=== PATIENT | male | born 1955 | race Caucasian/White ===

== ENCOUNTER 2016-10-08 15:36 | Inpatient (IN) | payer OTHER ==
[~2016-10-08] VITALS: Ht 175.3 cm; Wt 80.9 kg
[~2016-10-08 15:36] MED LIST: CALC250 PO; CHLO25 PO; FOLI1 PO; METF-324 PO; NORC10TA2 PO; PANT40P IV PUSH; THIA100T PO
[2016-10-08 15:39] VITALS: BP 91/53; PULSE 113; RESP 14; TEMP 97.7; O2SAT 96
--- NOTE | 2016-10-08 18:26 | PD ---
HPI Chief Complaint: GI Complaint Time Seen by Provider: 18:23 Travel History International Travel<30 days: No Contact w/Intl Traveler<30days: No Traveled to known affect area: No History of Present Illness HPI Patient is a 61-year-old male presenting to the emergency department for evaluation of decreased appetite and vomiting. Patient states his symptoms have been ongoing for the last 2 weeks. He states that he is stressed out and depressed. He denies any suicidal or homicidal ideations. He reports feeling stressed because he takes care of his 90-year-old mother. Patient states he vomits generally 2-3 times a day. The last time he vomited was at 2 PM today. Patient is able to drink 6 vodka drinks daily, his last drink was last night. He also smokes one to 2 packs of cigarettes daily. He denies any fever, chills , chest pain, shortness of breath, diarrhea, abdominal pain. PFSH Past Medical History Cancer: Yes (PROSTATE) High Cholesterol: Yes Chemotherapy: No Diabetes: Yes Patient Takes Glucophage: Yes Endocrine: Yes Hypertension: Yes Immune Disorder: No Musculoskeletal: No Neurologic: No Psychiatric: No Reproductive: No Radiation Therapy: No Past Surgical History Eye Surgery: Yes (CATARACTS) Prostatectomy: Yes Tonsillectomy: Yes Social History Alcohol Use: Yes Tobacco Use: Yes Substance Use: No Allergies-Medications (Allergen,Severity, Reaction): Coded Allergies: No Known Allergies (Verified , 10/08/16) Reported Meds & Prescriptions Reported Meds & Active Scripts Active Protonix (Pantoprazole Sodium) 40 Mg Vial 40 Mg IV PUSH Q24H 30 Days Oscal-D 250 MG /125 UNITS Tab (Calcium/Vitamin D) 250 Mg Tab 250 Mg PO TID 30 Days Librium 25 mg Cap (Chlordiazepoxide) 25 Mg Cap 25 Mg PO Q8HR 10 Days After 5 days, take one tablet twice a day. Folate 1 Mg Tab (Folic Acid) 1 Mg Tab 1 Mg PO DAILY 30 Days Vitamin B1 (Thiamine HCl) 100 Mg Tab 100 Mg PO DAILY 30 Days Spraggs 10-325 mg (Hydrocodone-Acetaminophen) 1 Tab Tab 1 Tab PO Q4HR Reported Metformin ER 24 HR (Metformin HCl) 1,000 Mg Tab 1,000 Mg PO BIDPC Review of Systems Except as stated in HPI: all other systems reviewed are Neg General / Constitutional: No: Fever, Chills Cardiovascular: No: Chest Pain or Discomfort Respiratory: No: Shortness of Breath Gastrointestinal: Positive: Nausea, Vomiting, No: Abdominal Pain Musculoskeletal: No: Myalgias Neurologic: No: Weakness, Dizziness, Syncope Physical Exam Narrative GENERAL: Well-developed, well-nourished, drowsy male. Resting comfortably in no acute distress. SKIN: Warm and dry. HEAD: Atraumatic. Normocephalic. EYES: Pupils equal and round. No scleral icterus. No injection or drainage. ENT: No nasal bleeding or discharge. Mucous membranes pink and moist. NECK: Trachea midline. No JVD. CARDIOVASCULAR: Regular rate and rhythm. No murmur appreciated. RESPIRATORY: No accessory muscle use. Clear to auscultation. Breath sounds equal bilaterally. GASTROINTESTINAL: Abdomen soft, non-tender, nondistended. Hepatic and splenic margins not palpable. Positive bowel sounds, no rebound, no guarding. MUSCULOSKELETAL: No obvious deformities. No clubbing. No cyanosis. No edema. NEUROLOGICAL: Awake and alert. No obvious cranial nerve deficits. Motor grossly within normal limits. Normal speech. PSYCHIATRIC: Appropriate mood and affect; insight and judgment normal. Data Data Last Documented VS Vital Signs Date Time Temp Pulse Resp B/P Pulse Ox O2 Delivery O2 Flow Rate FiO2 10/08/16 15:39 97.7 113 14 91/53 96 Room Air Orders Complete Blood Count With Diff (10/08/16 18:20) Comprehensive Metabolic Panel (10/08/16 18:20) Lipase (10/08/16 18:20) Ondansetron Odt (Zofran Odt) (10/08/16 18:30) Alcohol (Ethanol) (10/08/16 18:20) Iv Access Insert/Monitor (10/08/16 19:26) Magnesium (Mg) (10/08/16 19:26) Osmolality,Serum (10/08/16 19:31) Urinalysis - C+S If Indicated (10/08/16 19:31) Sodium Chlor 0.9% 1000 Ml Inj (Ns 1000 M (10/08/16 20:00) Ondansetron Inj (Zofran Inj) (10/08/16 20:00) Labs Laboratory Tests Test 10/08/16 18:40 White Blood Count 12.5 TH/MM3 Red Blood Count 3.89 MIL/MM3 Hemoglobin 13.9 GM/DL Hematocrit 39.2 % Mean Corpuscular Volume 100.8 FL Mean Corpuscular Hemoglobin 35.7 PG Mean Corpuscular Hemoglobin 35.4 % Concent Red Cell Distribution Width 13.2 % Platelet Count 152 TH/MM3 Mean Platelet Volume 8.1 FL Neutrophils (%) (Auto) 91.3 % Lymphocytes (%) (Auto) 5.7 % Monocytes (%) (Auto) 3.0 % Eosinophils (%) (Auto) 0.0 % Basophils (%) (Auto) 0.0 % Neutrophils # (Auto) 11.4 TH/MM3 Lymphocytes # (Auto) 0.7 TH/MM3 Monocytes # (Auto) 0.4 TH/MM3 Eosinophils # (Auto) 0.0 TH/MM3 Basophils # (Auto) 0.0 TH/MM3 CBC Comment DIFF FINAL Differential Comment Sodium Level 124 MEQ/L Potassium Level 5.0 MEQ/L Chloride Level 83 MEQ/L Carbon Dioxide Level 17.0 MEQ/L Anion Gap 24 MEQ/L Blood Urea Nitrogen 31 MG/DL Creatinine 2.19 MG/DL Estimat Glomerular Filtration 31 ML/MIN Rate Random Glucose 77 MG/DL Calcium Level 8.3 MG/DL Magnesium Level 2.0 MG/DL Total Bilirubin 0.6 MG/DL Aspartate Amino Transf 57 U/L (AST/SGOT) Alanine Aminotransferase 83 U/L (ALT/SGPT) Alkaline Phosphatase 52 U/L Total Protein 7.0 GM/DL Albumin 4.0 GM/DL Lipase 141 U/L Ethyl Alcohol Level 170 MG/DL MDM Medical Decision Making Medical Screen Exam Complete: Yes Emergency Medical Condition: Yes Interpretation(s) Vital Signs Date Time Temp Pulse Resp B/P Pulse Ox O2 Delivery O2 Flow Rate FiO2 10/08/16 15:39 97.7 113 14 91/53 96 Room Air Differential Diagnosis Alcohol dependence versus acute intoxication versus electrolyte abnormality versus cardiac arrhythmia versus gastritis versus gastroenteritis versus other Narrative Course Patient is a 61-year-old male presenting to the emergency Department with 2 weeks of nausea and vomiting. Patient is mildly tachycardic on arrival. He does admit to drinking several vodka drinks daily, his last drink was last night. Labs ordered and pending. Patient appears drowsy and smells of alcohol , will check alcohol level as well. Patient states his primary doctor is Dr. Horvath. Alcohol level elevated at 170, chemistry revealed a sodium of 124, potassium 5.0 , mild transaminitis. Elevated BUN and creatinine, this is improved from the prior 2014. CBC with WBCs of 12.5 with left shift. Patient started actively vomit, Zofran was changed to IV after access was obtained. Normal saline bolus ordered. Serum osmolality, magnesium, urinalysis ordered and pending Patient will be transferred to [facility], for further evaluation and management. Care of patient transferred to provider in that medical pod. Leti Banks Oct 08, 2016 18:26
[2016-10-08] MEDS ORDERED: ONDANSETRON ODT 4 MG TAB PO/SL ONE (18:30)
[2016-10-08 19:07] LABS: AUTOMATED NEUTROPHIL # 11.4 TH/MM3 (1.8-7.7); HEMATOCRIT 39.2 % (39.0-51.0); HEMO FLAGS DIFF FINAL; LYMPH % 5.7 % (9.0-44.0); LYMPHOCYTE # 0.7 TH/MM3 (1.0-4.8); MEAN CELL VOLUME 100.8 FL (80.0-100.0); MEAN CORPUSCULAR HEMOGLOBIN 35.7 PG (27.0-34.0); MEAN CORPUSCULAR HGB CONC 35.4 % (32.0-36.0); NEUT % 91.3 % (16.0-70.0); PLATELET COUNT 152 TH/MM3 (150-450); RED BLOOD COUNT 3.89 MIL/MM3 (4.50-5.90); RED CELL DISTRIBUTION WIDTH 13.2 % (11.6-17.2); WHITE BLOOD COUNT 12.5 TH/MM3 (4.0-11.0)
[2016-10-08 19:17] LABS: ANION GAP 24 MEQ/L (5-15)
[2016-10-08 19:20] LABS: ALKALINE PHOSPHATASE 52 U/L (45-117); ALT (GPT) 83 U/L (12-78); AST (GOT) 57 U/L (15-37); BLOOD UREA NITROGEN 31 MG/DL (7-18); CHLORIDE 83 MEQ/L (98-107); GLOMERULAR FILTRATION RATE 31 ML/MIN (>89); TOTAL BILIRUBIN ADULT 0.6 MG/DL (0.2-1.0)
[2016-10-08 19:21] LABS: SODIUM (NA) 124 MEQ/L (136-145)
[2016-10-08] MEDS ORDERED: SODIUM CHLOR 0.9% 1000 ML INJ 1,000 ML IV ONE (20:00)
[2016-10-08] MEDS ORDERED: ONDANSETRON HCL 4 MG/2 ML VIAL IV PUSH ONE (20:00)
[2016-10-08 20:04] LABS: BLOOD, URINE NEG (NEG); COMMENT (UR) CULT NOT INDICATED; CULTURE IF INDICATED CULT NOT INDICATED; GLUCOSE,URINE NEG (NEG); HYALINE CAST, URINE 79 /lpf (RARE); KETONE, URINE 10 mg/dL (NEG); NITRITE,URINE NEG (NEG); SQUAMOUS EPITHELIAL CELL URINE 1 /hpf (0-5); URINE COLOR YELLOW (YELLW/STRAW)
[2016-10-08 20:10] VITALS: BP 116/62; PULSE 113; PULSE 99; RESP 16; TEMP 98; O2SAT 96
[2016-10-08] MEDS ORDERED: LISI-515 PO (20:12)
[2016-10-08] MEDS ORDERED: METF1000 PO (20:12)
[2016-10-08] MEDS ORDERED: LORazepam 2 MG/ML VIAL IV PUSH ONE (20:15)
[2016-10-08] MEDS ORDERED: PANTOPRAZOLE SODIUM 40 MG VIAL IVP ONE (20:15)
[2016-10-08] MEDS ORDERED: THIAMINE INJ 100 MG in SODIUM CHLORIDE 0.9% INJ 100 ML IV ONE (20:15)
[2016-10-08] MEDS ORDERED: SODIUM CHLORIDE 0.9% FLUSH 5 ML FLUSH IVF PRN (20:15)
--- NOTE | 2016-10-08 20:16 | PD ---
Physical Exam Date Seen by Provider: Oct 08, 2016 Time Seen by Provider: 20:15 Narrative 61-year-old male coming in with history of 2 weeks of vomiting and abdominal pain. Patient was seen in triage by Leti HELTON. Labs ordered including CBC, CMP, EtOH level and urinalysis. CBC is within normal limits except for mild leukocytosis of 12.5. CMP came back showing sodium 124. Chloride of 83. BUN of 31 with a creatinine of 2.19. Carbon dioxide is 17 with an anion gap of 24. Patient has mild elevated AST and ALTs. Alkaline phosphatase is 52. Lipase is 141. Serum alcohol is 170 Urinalysis is unremarkable. Data Data Last Documented VS Vital Signs Date Time Temp Pulse Resp B/P Pulse Ox O2 Delivery O2 Flow Rate FiO2 10/08/16 20:10 98.0 99 16 116/62 96 Room Air Orders Complete Blood Count With Diff (10/08/16 18:20) Comprehensive Metabolic Panel (10/08/16 18:20) Lipase (10/08/16 18:20) Ondansetron Odt (Zofran Odt) (10/08/16 18:30) Alcohol (Ethanol) (10/08/16 18:20) Iv Access Insert/Monitor (10/08/16 19:26) Magnesium (Mg) (10/08/16 19:26) Osmolality,Serum (10/08/16 19:31) Urinalysis - C+S If Indicated (10/08/16 19:31) Sodium Chlor 0.9% 1000 Ml Inj (Ns 1000 M (10/08/16 20:00) Ondansetron Inj (Zofran Inj) (10/08/16 20:00) Pantoprazole Inj (Protonix Inj) (10/08/16 20:15) Sodium Chloride 0.9% Flush (Ns Flush) (10/08/16 20:15) Thiamine Inj (Thiamine Inj) (10/08/16 20:15) Lorazepam Inj (Ativan Inj) (10/08/16 20:15) Labs Laboratory Tests Test 10/08/16 10/08/16 10/08/16 18:40 19:40 19:45 White Blood Count 12.5 TH/MM3 Red Blood Count 3.89 MIL/MM3 Hemoglobin 13.9 GM/DL Hematocrit 39.2 % Mean Corpuscular Volume 100.8 FL Mean Corpuscular Hemoglobin 35.7 PG Mean Corpuscular Hemoglobin 35.4 % Concent Red Cell Distribution Width 13.2 % Platelet Count 152 TH/MM3 Mean Platelet Volume 8.1 FL Neutrophils (%) (Auto) 91.3 % Lymphocytes (%) (Auto) 5.7 % Monocytes (%) (Auto) 3.0 % Eosinophils (%) (Auto) 0.0 % Basophils (%) (Auto) 0.0 % Neutrophils # (Auto) 11.4 TH/MM3 Lymphocytes # (Auto) 0.7 TH/MM3 Monocytes # (Auto) 0.4 TH/MM3 Eosinophils # (Auto) 0.0 TH/MM3 Basophils # (Auto) 0.0 TH/MM3 CBC Comment DIFF FINAL Differential Comment Sodium Level 124 MEQ/L Potassium Level 5.0 MEQ/L Chloride Level 83 MEQ/L Carbon Dioxide Level 17.0 MEQ/L Anion Gap 24 MEQ/L Blood Urea Nitrogen 31 MG/DL Creatinine 2.19 MG/DL Estimat Glomerular Filtration 31 ML/MIN Rate Random Glucose 77 MG/DL Calcium Level 8.3 MG/DL Magnesium Level 2.0 MG/DL Total Bilirubin 0.6 MG/DL Aspartate Amino Transf 57 U/L (AST/SGOT) Alanine Aminotransferase 83 U/L (ALT/SGPT) Alkaline Phosphatase 52 U/L Total Protein 7.0 GM/DL Albumin 4.0 GM/DL Lipase 141 U/L Ethyl Alcohol Level 170 MG/DL Serum Osmolality 318 MOSM/KG Urine Color YELLOW Urine Turbidity HAZY Urine pH 5.0 Urine Specific [place] 1.014 Urine Protein TRACE mg/dL Urine Glucose (UA) NEG mg/dL Urine Ketones 10 mg/dL Urine Occult Blood NEG Urine Nitrite NEG Urine Bilirubin NEG Urine Urobilinogen LESS THAN 2.0 MG/DL Urine Leukocyte Esterase NEG Urine RBC LESS THAN 1 /hpf Urine WBC 2 /hpf Urine Squamous Epithelial 1 /hpf Cells Urine Hyaline Casts 79 /lpf Microscopic Urinalysis Comment CULT NOT INDICATED MDM Medical Record Reviewed: Yes Supervised Visit with ROXANNE: Yes Differential Diagnosis Nausea and vomiting. Alcoholic gastritis. EtOH withdrawal. Electrolyte imbalance. Dehydration. Narrative Course Patient is medically stable at time of exam. Labs are reviewed showing hyponatremia, and will insufficiency. IV access is obtained and the patient is given 1000 mL normal saline bolus, 40 mg pantoprazole IV, and 100 mg thiamine IV. Based on the patient's labs that feel admission for observation is appropriate. 2019 hrs. call was placed on hospice for admission. 2044 hrs. patient was discussed with Dr. Dobbins, who agreed to admit the patient with hyponatremia. Diagnosis Primary Impression: Acute hyponatremia Additional Impressions: Nausea and vomiting Qualified Code: R11.2 - Non-intractable vomiting with nausea, unspecified vomiting type ETOH abuse Admitting Information Admitting Physician Requests: Admit Condition: Stable Rogers Dick Oct 08, 2016 20:16
[2016-10-08] MEDS: SODIUM CHLORIDE 0.9% FLUSH 5 ML FLUSH FLUSH SCH (20:55)
[2016-10-08] MEDS ORDERED: LORazepam 2 MG/ML VIAL IV PUSH PRN (21:00)
[2016-10-08] MEDS ORDERED: SODIUM CHLORIDE 0.9% FLUSH 5 ML FLUSH FLUSH PRN (21:00)
[2016-10-08] MEDS ORDERED: NALOXONE HCL 0.4 MG/ML AMP IV PRN (21:00)
[2016-10-08 21:10] LABS: MEAN CORPUSCULAR HGB CONC 36.3 % (32.0-36.0)
[2016-10-08 23:16] VITALS: BP 99/55; PULSE 95; RESP 16; TEMP 98; O2SAT 96
[2016-10-09] VITALS (7 sets, daily range): BP systolic 108–142; BP diastolic 53–78; PULSE 68–88; RESP 17–18; TEMP 96.6–98.8; O2SAT 93–98
[2016-10-09 01:41] LABS: HEMATOCRIT 32.3 % (39.0-51.0)
[2016-10-09 01:42] LABS: REVIEW FLAG FINAL
[2016-10-09 01:59] LABS: BICARBONATE 20.6 MEQ/L (21.0-32.0); POTASSIUM 4.8 MEQ/L (3.5-5.1)
--- NOTE | 2016-10-09 02:53 | HHI.HP ---
[facility] Dada Horvath, PhD, MD Admission Diagnosis Hyponatremia/Vomitting/ETOH abuse Diagnoses: Chief Complaint: nausea and vomiting Travel History International Travel<30 Days: No Contact w/Intl Traveler <30 Da: No Traveled to Known Affected Are: No History of Present Illness History taken from patient and ED physician. 61 y/o male with a history of HTN, DM, hyperlipidemia, and prostate cancer presented with complaints of nausea and vomiting for the last 2 weeks. He states he vomits about 3 times a day, and is unable to keep solids down. He states today he had blood in his vomit x1. He does have a cough with yellowish/ greenish sputum but denies hemoptysis. He denies any fever, chills or black stools. He states recently he has been really stressed with his home life. 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 Apart from the above, he denies any chest pain/palpitations/shortness of breath/ focal weakness. Denies any passing out episodes or dizziness. Review of Systems Constitutional: COMPLAINS OF: Diaphoretic episodes, DENIES: Fever, Chills Respiratory: COMPLAINS OF: Cough, Sputum production, DENIES: Shortness of breath Cardiovascular: DENIES: Chest pain, Dyspnea on Exertion, Lower Extremity Edema Gastrointestinal: COMPLAINS OF: Nausea, Vomiting, DENIES: Black stools, Constipation, Diarrhea Genitourinary: DENIES: Hematuria, Dysuria Musculoskeletal: DENIES: Back pain, Neck pain Integumentary: DENIES: Rash Hematologic/lymphatic: DENIES: Lymphadenopathy Immunologic/allergic: DENIES: Urticaria Past Family Social History Past Medical History HTN DM Hyperlipidemia Prostate cancer Past Surgical History Proctectomy 2008 Tonsillectomy Cataracts R arm ORIF Reported Medications Reported Meds & Active Scripts Active Reported Lisinopril 20 Mg Tab 20 Mg PO DAILY Metformin (Metformin HCl) 1,000 Mg Tab 1,000 Mg PO BIDPC With meals Allergies: Coded Allergies: No Known Allergies (Verified , 10/08/16) Active Ordered Medications Current Medications Medications (Trade) Dose Ordered Sig/Kelsey Route Start Time Stop Time Status Last Admin (NS Flush) 2 ml UNSCH PRN FLUSH 10/08/16 21:00 (NS Flush) 2 ml BID FLUSH 10/08/16 21:00 10/08/16 20:55 (Narcan Inj) 0.4 mg UNSCH PRN IV 10/08/16 21:00 (Vitamin B1) 100 mg DAILY PO 10/09/16 09:00 (Ativan Inj) 1 mg Q2H PRN IV PUSH 10/08/16 21:00 (Librium) 25 mg TID PO 10/09/16 09:00 Family History Mom: gastric ulcers Social History Tobacco use: 1-2 PPD Alcohol use: 4-6 drinks a day Illicit drug use: Denies Physical Exam Vital Signs Vital Signs Date Time Temp Pulse Resp B/P Pulse Ox O2 Delivery O2 Flow Rate FiO2 10/08/16 23:16 98.0 95 16 99/55 96 Room Air 10/08/16 20:10 98.0 99 16 116/62 96 Room Air 10/08/16 15:39 97.7 113 14 91/53 96 Room Air Physical Exam GENERAL: This is a well-nourished, well-developed patient, in no apparent distress. SKIN: Diaphoretic HEAD: Atraumatic. Normocephalic. EYES: Pupils equal round and reactive. No injection or drainage. ENT: Nose without bleeding, purulent drainage or septal hematoma. Airway patent. NECK: Trachea midline. No JVD CARDIOVASCULAR: Regular rate and rhythm without murmurs, gallops, or rubs. RESPIRATORY: Clear to auscultation. Breath sounds equal bilaterally. No wheezes , rales, or rhonchi. GASTROINTESTINAL: Abdomen soft, tender, nondistended. No guarding. MUSCULOSKELETAL: Extremities without clubbing, cyanosis, or edema. No calf tenderness. NEUROLOGICAL: Awake and alert. Motor and sensory grossly within normal limits. Normal speech. Laboratory Laboratory Tests Test 10/08/16 10/08/16 10/08/16 10/09/16 18:40 19:40 19:45 01:26 White Blood Count 12.5 Red Blood Count 3.89 Hemoglobin 13.9 11.8 Hematocrit 39.2 32.3 Mean Corpuscular Volume 100.8 Mean Corpuscular Hemoglobin 35.7 Mean Corpuscular Hemoglobin 35.4 Concent Red Cell Distribution Width 13.2 Platelet Count 152 Mean Platelet Volume 8.1 Neutrophils (%) (Auto) 91.3 Lymphocytes (%) (Auto) 5.7 Monocytes (%) (Auto) 3.0 Eosinophils (%) (Auto) 0.0 Basophils (%) (Auto) 0.0 Neutrophils # (Auto) 11.4 Lymphocytes # (Auto) 0.7 Monocytes # (Auto) 0.4 Eosinophils # (Auto) 0.0 Basophils # (Auto) 0.0 CBC Comment DIFF FINAL Differential Comment Sodium Level 124 128 Potassium Level 5.0 4.8 Chloride Level 83 92 Carbon Dioxide Level 17.0 20.6 Anion Gap 24 15 Blood Urea Nitrogen 31 28 Creatinine 2.19 1.50 Estimat Glomerular Filtration 31 48 Rate Random Glucose 77 131 Calcium Level 8.3 7.7 Magnesium Level 2.0 Total Bilirubin 0.6 Aspartate Amino Transf 57 (AST/SGOT) Alanine Aminotransferase 83 (ALT/SGPT) Alkaline Phosphatase 52 Total Protein 7.0 Albumin 4.0 Lipase 141 Ethyl Alcohol Level 170 Serum Osmolality 318 Urine Color YELLOW Urine Turbidity HAZY Urine pH 5.0 Urine Specific [place] 1.014 Urine Protein TRACE Urine Glucose (UA) NEG Urine Ketones 10 Urine Occult Blood NEG Urine Nitrite NEG Urine Bilirubin NEG Urine Urobilinogen LESS THAN 2.0 Urine Leukocyte Esterase NEG Urine RBC LESS THAN 1 Urine WBC 2 Urine Squamous Epithelial 1 Cells Urine Hyaline Casts 79 Microscopic Urinalysis Comment CULT NOT INDICATED Result Diagram: 10/09/1612510/09/16125 Assessment and Plan Problem List: (1) Acute hyponatremia ICD Code: E87.1 Status: Acute (2) Nausea and vomiting ICD Code: R11.2 Status: Acute (3) ARNOLD (acute kidney injury) ICD Code: N17.9 Status: Acute (4) GI bleed ICD Code: K92.2 Status: Acute (5) Leukocytosis ICD Code: D72.829 Status: Acute (6) Diabetes mellitus ICD Code: E11.9 Status: Acute (7) ETOH abuse ICD Code: F10.10 Status: Chronic Assessment and Plan 61 y/o male with a history of HTN, DM, hyperlipidemia, and prostate cancer presented with: Acute hyponatremiasecondary to GI loss from nausea/vomiting. Asymptomatic in terms of neurological status. Labs: Sodium 124, repeat sodium 128 after 1 Liter NS Bolus -Trend BMP -Supportive IVF NS@84ml/hr Nausea/vomitingpossible gastritis. No acute findings on physical exam. Abdomen is quite benign. Lipase levels normal -Clear liquid diet advance as tolerated -Antiemetics as needed -Abdominal KUB pendingcheck for free air/perforated peptic ulcers ARNOLD, likely due to dehydration Labs: Creatinine 2.19, repeat 1.5 -Continue supportive IVF -Trend BMP Leukocytosis Labs: WBC 12.5, neutrophils 91% -Chest x-ray obtain now given that patient has reports of sputum production and cough. -UA negative GI bleed- initially this was suspected because patient was complaining of his vomitus becoming dark in color. Repeat hemoglobin noted to be dropping as well. Labs: Hemoglobin 11.8 decreased from 13.9 -Protonix IV continuous -Serial H&H -Consult GI Diabetes, chronic -Accu-Cheks, will order sliding scale if needed -Keep nothing by mouth now due to suspected GI bleed. Switch IV fluids to D5 normal saline. EtOH abuse -Coverage to quit -Ativan as needed, thiamine PO, Librium scheduled -Withdrawal precautions DVT prophylaxis: SCDs Written by Olga HELTON, acting as scribe for Dr. Dobbins on 10/09/16 at 0314. The documentation accurately reflects the work performed [id number] and decisions made by me and the physician Dr Dobbins on 10/09/16. The documentation accurately reflects the work performed [id number] by me on at 0314 Discussed Condition With Patient, patient's nurse, ED physician Physician Certification 2 Midnight Certification Type: Admission for Inpatient Services Order for Inpatient Services The services are ordered in accordance with Medicare regulations or non- Medicare payer requirements, as applicable. In the case of services not specified as inpatient-only, they are appropriately provided as inpatient services in accordance with the 2-midnight benchmark. Estimated LOS (days): 3 days is the estimated time the patient will need to remain in the hospital, assuming treatment plan goals are met and no additional complications. Post-Hospital Plan: Home Problem Qualifiers (1) Nausea and vomiting: Qualified Code: R11.2 - Non-intractable vomiting with nausea, unspecified vomiting type Olga Foreman Oct 09, 2016 02:53 Jesse Dobbins MD Oct 09, 2016 07:56
[2016-10-09] MEDS ORDERED: DEXTROSE 50% IN WATER 50 ML VIAL(D50) IV PUSH PRN (03:30)
[2016-10-09] MEDS ORDERED: GLUCAGON 1 MG/ML VIAL OTHER PRN (03:30)
[2016-10-09] MEDS ORDERED: SODIUM CHLOR 0.9% 1000 ML INJ 1,000 ML IV SCH (03:30)
[2016-10-09] MEDS ORDERED: ONDANSETRON HCL 4 MG/2 ML VIAL IV PUSH PRN (04:30)
[2016-10-09 05:29] LABS: BICARBONATE 25.1 MEQ/L (21.0-32.0); POTASSIUM 4.6 MEQ/L (3.5-5.1)
[2016-10-09 05:39] LABS: AUTOMATED NEUTROPHIL # 6.8 TH/MM3 (1.8-7.7); BASOPHIL % 0.3 % (0.0-2.0); EOSINOPHIL % 0.1 % (0.0-4.0); HEMATOCRIT 32.5 % (39.0-51.0); LYMPH % 11.3 % (9.0-44.0); MEAN CELL VOLUME 98.5 FL (80.0-100.0); MEAN CORPUSCULAR HEMOGLOBIN 35.8 PG (27.0-34.0); MONO % 10.4 % (0.0-8.0); NEUT % 77.9 % (16.0-70.0); PLATELET COUNT 123 TH/MM3 (150-450); RED CELL DISTRIBUTION WIDTH 13.5 % (11.6-17.2); WHITE BLOOD COUNT 8.7 TH/MM3 (4.0-11.0)
[2016-10-09 05:40] LABS: HEMO FLAGS AUTO DIFF
[2016-10-09] MEDS: PANTOPRAZOLE INJ 80 MG in SODIUM CHLORIDE 0.9% INJ 100 ML IV SCH (06:03)
[2016-10-09 06:38] LABS: PLATELET ESTIMATE SMEAR NORMAL (NORMAL); PLATELET MORPHOLOGY NORMAL (NORMAL); SCAN/DIFF AUTO DIFF CONFIRMED
[2016-10-09] MEDS: SODIUM CHLORIDE 0.9% FLUSH 5 ML FLUSH FLUSH SCH ×2 (09:00→22:02)
--- NOTE | 2016-10-09 09:12 | RADRPT ---
EXAM DATE/TIME: 10/09/2016 08:44 [facility] COMPARISON: CHEST SINGLE AP, May 27, 2015, 12:09. INDICATIONS : Short of breath MEDICAL HISTORY : Hypertension. Carcinoma, prostatic. smoker SURGICAL HISTORY : None. ENCOUNTER: Initial ACUITY: 1 day PAIN SCORE: 0/10 LOCATION: Bilateral chest FINDINGS: PA and lateral views of the chest demonstrate the lungs to be symmetrically aerated without evidence of infiltrate or effusion. There is a subtle 1.3 cm rounded mass projected over the left upper lobe w hich corresponds to a EKG lead on the lateral exam. The cardiomediastinal contours are unremarkable. Osseous structures are intact. CONCLUSION: No acute cardiac pulmonary disease. Chas Mensah MD on October 09, 2016 at 9:09 Board Certified Radiologist. This report was verified electronically.
--- NOTE | 2016-10-09 09:20 | RADRPT ---
EXAM DATE/TIME: 10/09/2016 08:46 [facility] COMPARISON: No previous studies available for comparison. INDICATIONS : Vomiting, unable to keep anything down. MEDICAL HISTORY : Poste cancer. Hypertension SURGICAL HISTORY : Prostatectomy. ENCOUNTER: Initial ACUITY: 2 weeks PAIN SCORE: 0/10 LOCATION: Bilateral upper quadrant abdomen FINDINGS: Supine view of the abdomen was performed. Gas and stool is noted segmentally in the colon. There are multiple loops of nondilated air-containing small bowel in the central abdomen and left upper abdomen . No abnormal masses, calcifications, or organomegaly is seen. The osseous structures are unremarkab le. CONCLUSION: Nonspecific, nonobstructive bowel gas pattern most characteristic of an ileus or marlon roenteritis. Chas Mensah MD on October 09, 2016 at 9:17 Board Certified Radiologist. This report was verified electronically.
[2016-10-09] MEDS: chlordiazePOXIDE 25 MG CAP PO SCH ×3 (10:09→18:18)
[2016-10-09] MEDS: THIAMINE HCL 100 MG TAB PO SCH (10:09)
[2016-10-09] MEDS: DEXT 5%-NACL 0.45% 1000 ML INJ 1,000 ML IV SCH (10:10)
--- NOTE | 2016-10-09 11:57 | HHI.PR ---
Subjective Remarks resting comfortably with no distress. no nausea, vomiting or abdominal pain today. Objective Vitals Vital Signs Date Time Temp Pulse Resp B/P Pulse Ox O2 Delivery O2 Flow Rate FiO2 10/09/16 07:31 98.7 68 17 112/62 93 10/09/16 06:26 97.9 85 18 108/53 98 10/08/16 23:16 98.0 95 16 99/55 96 Room Air 10/08/16 20:10 98.0 99 16 116/62 96 Room Air 10/08/16 15:39 97.7 113 14 91/53 96 Room Air I/O 10/08/16 10/08/16 10/08/16 10/09/16 10/09/16 10/09/16 07:00 15:00 23:00 07:00 15:00 23:00 Intake Total 1000 ml Balance 1000 ml Intake IV Total 1000 ml Result Diagram: 10/09/16 0435 10/09/16 0435 Imaging Last Impressions Chest X-Ray 10/09/16818 Signed Impressions: Service Date/Time: Sunday, October 09, 2016 08:44 - CONCLUSION: No acute cardiac pulmonary disease. Chas Mensah MD Abdomen X-Ray 10/09/16818 Signed Impressions: Service Date/Time: Sunday, October 09, 2016 08:46 - CONCLUSION: Nonspecific , nonobstructive bowel gas pattern most characteristic of an ileus or gastroenteritis. Chas Mensah MD Objective Remarks GENERAL: This is a well-nourished, well-developed patient, in no apparent distress. CARDIOVASCULAR: Regular rate and regular rhythm without murmurs, gallops, or rubs. RESPIRATORY: Clear to auscultation. Breath sounds equal bilaterally. No wheezes , rales, or rhonchi. GASTROINTESTINAL: Abdomen soft, non-tender, nondistended. Normal, active bowel sounds MUSCULOSKELETAL: Extremities without clubbing, cyanosis, or edema. NEURO: Alert & Oriented x4 to person, place, time, situation. Moves all ext x4 Procedures none Medications and IVs Current Medications Ondansetron HCl 4 mg 4 mg ONCE ONCE PO/SL ; Start 10/08/16 at 18:30; Stop 10/08 at 19:50; Status DC Sodium Chloride (NS 1000 ml Inj) 1,000 ml @ 999 mls/hr BOLUS ONCE IV Last administered on 10/08/16 20:09; Start 10/08/16 at 20:00; Stop 10/08/16 at 21:00 ; Status DC Ondansetron HCl (Zofran Inj) 4 mg ONCE ONCE IV PUSH Last administered on 19:55; Start 10/08/16 at 20:00; Stop 10/08/16 at 20:01; Status DC Pantoprazole Sodium (Protonix Inj) 40 mg ONCE ONCE IVP Last administered on 20:25; Start 10/08/16 at 20:15; Stop 10/08/16 at 20:16; Status DC IV Flush 2 ml 2 ml UNSCH PRN IVF FLUSH AFTER USING IV ACCESS Last administered on 10/08/16 20:25; Start 10/08/16 at 20:15; Stop 10/08/16 at 20:52; Status DC Thiamine HCl/ Sodium Chloride (Thiamine Inj/NS Inj) 101 ml @ 101 mls/hr ONCE ONCE IV Last administered on 10/08/16 20:25; Start 10/08/16 at 20:15; Stop at 21:14; Status DC Lorazepam (Ativan Inj) 1 mg ONCE ONCE IV PUSH Last administered on 10/08/16 20:25; Start 10/08/16 at 20:15; Stop 10/08/16 at 20:16; Status DC IV Flush (NS Flush) 2 ml UNSCH PRN FLUSH FLUSH AFTER USING IV ACCESS; Start at 21:00 IV Flush (NS Flush) 2 ml BID FLUSH Last administered on 10/08/16 20:55; Start 10/08/16 at 21:00 Naloxone HCl (Narcan Inj) 0.4 mg UNSCH PRN IV SEE LABEL COMMENTS; Start at 21:00 Thiamine HCl (Vitamin B1) 100 mg DAILY PO Last administered on 10/09/16 10:09 ; Start 10/09/16 at 09:00 Lorazepam (Ativan Inj) 1 mg Q2H PRN IV PUSH withdrawal symptoms; Start at 21:00 Chlordiazepoxide 25 mg 25 mg TID PO Last administered on 10/09/16 10:09; Start 10/09/16 at 09:00 Sodium Chloride (NS 1000 ml Inj) 1,000 ml @ 84 mls/hr [id number] IV Last administered on 10/09/16 05:36; Start 10/09/16 at 03:30; Stop 10/09/16 at 07:55 ; Status DC Dextrose (D50w (Vial) Inj) 25 ml UNSCH PRN IV PUSH HYPOGLYCEMIA-SEE COMMENTS; Start 10/09/16 at 03:30 Glucagon 1 mg 1 mg UNSCH PRN OTHER HYPOGLYCEMIA-SEE COMMENTS; Start 10/09/16 at 03:30 Pantoprazole Sodium/Sodium Chloride (Protonix Inj/NS Inj) 100 ml @ 10 mls/hr CONTINUOUS IV Last administered on 10/09/16 06:03; Start 10/09/16 at 04:30 Ondansetron HCl 4 mg 4 mg Q6H PRN IV PUSH nausea; Start 10/09/16 at 04:30 Dextrose/Sodium Chloride (D5W-08/27 NS 1000 ml Inj) 1,000 ml @ 84 mls/hr [id number] IV Last administered on 10/09/16 10:10; Start 10/09/16 at 08:00 A/P Assessment and Plan A/P hyponatremiasecondary to GI loss from nausea/vomiting. Asymptomatic in terms of neurological status. -Trend BMP -Supportive IVF NS@84ml/hr Nausea/vomitingpossible gastritis. No acute findings on physical exam. Abdomen is quite benign. Lipase levels normal -NPO for now -Antiemetics as needed ARNOLD, likely due to dehydration Labs: Creatinine 2.19, repeat 1.5 -Continue supportive IVF -Trend BMP Leukocytosis- resolved GI bleed- initially this was suspected because patient was complaining of his vomitus becoming dark in color. -Protonix IV continuous -Serial H&H -Consulted GI Diabetes, chronic -Accu-Cheks, will order sliding scale if needed -Keep nothing by mouth now due to suspected GI bleed. Switch IV fluids to D5 normal saline. EtOH abuse -Ativan as needed, thiamine PO, Librium scheduled -Withdrawal precautions Elke Gordon MD Oct 09, 2016 11:57
--- NOTE | 2016-10-09 12:10 | MB ---
cc: MICKEY RAZO DATE OF CONSULTATION 10/09/2016 REASON FOR GI CONSULTATION Nausea and vomiting. HISTORY OF PRESENT ILLNESS A 61-year-old male who presents to the emergency room with a two-week history of nausea, vomiting, unable to keep food down. He had been trying to temper this with drinking soups but he has had nausea and vomiting every time. He denies any episodes like this in the past. His liver enzymes are mildly elevated. Lipase was normal. CBC shows a hemoglobin of 11.8, white count was normal. He states he noted a small tinge of blood on one of his emesis episodes. He denies any melena or hematochezia. He has been under a lot of stress at home because he is taking care of his 90-year-old mother and also his daughter as well. He denies any syncopal episodes. He does consume alcohol every day, Vodka and grapefruit juice. He does not define the exact amount but he reports that it is a lot. He has been doing this for 2-3 years at least. I was asked to evaluate him for this. PAST HISTORY 1. Hypertension. 2. Diabetes. 3. Hyperlipidemia. 4. Prostate cancer. 5. Cataract disease. MEDICATIONS 1. Lisinopril. 2. Metformin. ALLERGIES None. FAMILY HISTORY Apparently is negative. However, his mother had gastric ulcers. SOCIAL HISTORY He drinks three to four cocktails a day. Denies illicit drug use. Smokes one to two packs of cigarettes per day. REVIEW OF SYSTEMS A 12-point review of systems is as stated above. He denies any fever or jaundice. EXAMINATION GENERAL: A well-developed male. Alert and oriented x 3. In no acute distress. VITAL SIGNS: Stable. He is afebrile. HEENT EXAM: Normocephalic. Sclerae anicteric. Facial erythema is noted. Oral mucosa is dry. NECK: Supple. CARDIAC EXAM: S1-S2, regular rhythm. CHEST: Clear. ABDOMEN: Soft, nontender. Bowel sounds are present. No masses detected. No organomegaly. EXTREMITIES: Without clubbing, cyanosis or edema. IMPRESSION A 61-year-old male who presents with intractable nausea and vomiting x 2 weeks. He has a history of ethanol abuse as stated above. The etiology to his vomiting could be due to some acute pancreatitis, alcohol gastritis, peptic ulcer disease or esophagitis. PLAN Would continue IV therapy including IV PPI. We will schedule the patient for upper endoscopy. The procedure, risks and benefits were discussed including risks of bleeding, sepsis, perforation, risks of anesthesia. Would continue antiemetics. Clear liquid diet as tolerated. Incidentally, his abdominal films revealed the possibility of gastroenteritis or mild ileus. It is also noted that the patient's creatinine was 2.19, down to 1.5 currently. His sodium is 128 as well. SGOT/SGPT were 157/83 respectively. The patient incidentally also was counseled about discontinuing alcohol ingestion as well. Further recommendation are pending the workup. Thank you for this consult. MD DAVID Stephen/MARLIN /11:40 AM /12:00 PM
--- NOTE | 2016-10-09 16:08 | RADRPT ---
EXAM DATE/TIME: 10/09/2016 13:31 [place] COMPARISON: No previous studies available for comparison. EXTERNAL COMPARISON : [facility], MRI ABDOMEN W & W/O CONTRAST, July 25, 2015. Renal Ultrasound 05/27/2015. MEDICAL HISTORY : Hypercholesterolemia. Hypertension. Prostate cancer. Diabetes. SURGICAL HISTORY : Tonsillectomy. Cataract removal. Prostatectomy. Orthopedic surgery, right arm. ENCOUNTER: Initial ACUITY: 1 day PAIN SCORE: 0/10 LOCATION: Bilateral upper quadrant MEASUREMENTS: LIVER: 19.6 cm length COMMON DUCT: 4 mm RIGHT KIDNEY: 13.2 x 6.0 x 5.3 cm SPLEEN: 11.2 cm length FINDINGS: LIVER: The liver is enlarged and mildly heterogeneous with increased echogenicity. There is no focal mass or ductal dilatation. COMMON DUCT: No intraluminal mass or stone visualized. GALLBLADDER: The gallbladder is normal in size and wall thickness. There is a small amount of echogenic debris wit h small echogenic foci measuring 6-7 mm in size along the wall. This could represent a small stone or polyp. PANCREAS: The visualized portions are within normal limits. RIGHT KIDNEY: There is focal scarring involving the mid and lower pole region. A hypoechoic ill-defined area is not ed adjacent to the area of scarring. SPLEEN: No focal lesion. CONCLUSION: 1. The liver is enlarged with mild heterogeneity and increased echogenicity most characteristic of fa tty infiltration. 2. Small amount of apparent debris or sludge in the gallbladder as well as a small stone or possible gallbladder wall polyp. 3. Focal scarring involving the left kidney as well as an ill-defined hypoechoic area. This does not appear significantly changed from the prior outside ultrasound and was previously evaluated with MRI which demonstrated focal scarring and small simple cyst. Chas Mensah MD on October 09, 2016 at 15:58 Board Certified Radiologist. This report was verified electronically.
[2016-10-09 16:16] LABS: HEMATOCRIT 34.2 % (39.0-51.0)
[2016-10-09 16:18] LABS: REVIEW FLAG FINAL
[2016-10-09 16:32] LABS: BICARBONATE 29.2 MEQ/L (21.0-32.0); POTASSIUM 4.2 MEQ/L (3.5-5.1)
[2016-10-09] MEDS ORDERED: INSULIN HUMAN REGULAR 1,000 UNITS/10 ML VIAL SQ ONE (21:30)
[2016-10-10] VITALS (7 sets, daily range): BP systolic 106–131; BP diastolic 55–81; PULSE 56–91; RESP 18–21; TEMP 97.8–98.4; O2SAT 96–98
[2016-10-10] MEDS: DEXT 5%-NACL 0.45% 1000 ML INJ 1,000 ML IV SCH ×2 (07:50→09:03)
--- NOTE | 2016-10-10 08:49 | HHI.GIFU ---
GI Follow-up Note Consult Follow-up Subjective: Patient laying in bed comfortably, no new complaints. no new n/v no bleeding. Objective: PHYSICAL EXAMINATION: Vitals signs stable No fever HEENT: Pupils round and reactive to light; normocephalic; atraumatic; no jaundice. Throat is clear. NECK: Neck is supple, no JVD, no lymphadenopathy. CHEST: Chest is clear to auscultation and percussion. CARDIAC: Regular rate and rhythm with no murmur gallop or rubs. ABDOMEN: Soft, nondistended, nontender; no hepatosplenomegaly; bowel sounds are present in all four quadrants. EXTREMITIES: No clubbing, cyanosis, or edema. SKIN: Normal; no rash; no jaundice. ADJUNCT FACULTY: No focal deficits; alert and oriented times three. Available Data (labs, X- Rays, Procedures) : reviewed ASSESSMENT/PLAN: 1. N/v 2. ETOH hepatitis 3. ETOH intoxication 4. blood tinged emesis 5. Acute anemia of blood loss PLAN: 1. Regular diet today 2. NPO after mn 3. Plan for EGD tomorrow. 4. Monitor labs 5. PT advised on ETOH cessation. It was a pleasure seeing Devante South Thank you for this consult. Entered by: Michael Gross MD Oct 10, 2016 08:49
[2016-10-10] MEDS: SODIUM CHLORIDE 0.9% FLUSH 5 ML FLUSH FLUSH SCH ×2 (09:00→22:15)
[2016-10-10] MEDS: chlordiazePOXIDE 25 MG CAP PO SCH ×2 (09:03→12:38)
[2016-10-10] MEDS: PANTOPRAZOLE INJ 80 MG in SODIUM CHLORIDE 0.9% INJ 100 ML IV SCH (09:03)
[2016-10-10] MEDS: THIAMINE HCL 100 MG TAB PO SCH (09:03)
--- NOTE | 2016-10-10 12:59 | HHI.PR ---
Subjective Remarks resting comfortably with no distress. no nausea or vomiting. has mild epigastric pain. Objective Vitals Vital Signs Date Time Temp Pulse Resp B/P Pulse Ox O2 Delivery O2 Flow Rate FiO2 10/10/16 11:22 98.1 91 19 106/67 97 10/10/16 07:37 98.1 72 19 118/81 96 10/10/16 05:13 98.1 58 21 112/58 97 10/10/16 00:00 98.4 78 18 131/78 97 10/09/16 19:55 98.7 76 18 123/58 97 10/09/16 15:20 96.6 78 17 120/71 93 10/09/16 14:49 88 I/O 10/09/16 10/09/16 10/09/16 10/10/16 10/10/16 10/10/16 07:00 15:00 23:00 07:00 15:00 23:00 Intake Total 480 ml 240 ml Output Total 550 ml Balance 480 ml -310 ml Intake Oral 480 ml 240 ml Output Urine Total 550 ml # Voids 2 2 # Bowel Movements 1 Result Diagram: 10/09/16 1548 10/09/16 1548 Imaging Last Impressions Chest X-Ray 10/09/16818 Signed Impressions: Service Date/Time: Sunday, October 09, 2016 08:44 - CONCLUSION: No acute cardiac pulmonary disease. Chas Mensah MD Abdomen X-Ray 10/09/16818 Signed Impressions: Service Date/Time: Sunday, October 09, 2016 08:46 - CONCLUSION: Nonspecific , nonobstructive bowel gas pattern most characteristic of an ileus or gastroenteritis. Chas Mensah MD Liver Ultrasound 10/09/16 0000 Signed Impressions: Service Date/Time: Sunday, October 09, 2016 13:31 - CONCLUSION: 1. The liver is enlarged with mild heterogeneity and increased echogenicity most characteristic of fatty infiltration. 2. Small amount of apparent debris or sludge in the gallbladder as well as a small stone or possible gallbladder wall polyp. 3. Focal scarring involving the left kidney as well as an ill-defined hypoechoic area. This does not appear significantly changed from the prior outside ultrasound and was previously evaluated with MRI which demonstrated focal scarring and small simple cyst. Chas Mensah MD Objective Remarks GENERAL: This is a well-nourished, well-developed patient, in no apparent distress. CARDIOVASCULAR: Regular rate and regular rhythm without murmurs, gallops, or rubs. RESPIRATORY: Clear to auscultation. Breath sounds equal bilaterally. No wheezes , rales, or rhonchi. GASTROINTESTINAL: Abdomen soft, non-tender, nondistended. Normal, active bowel sounds MUSCULOSKELETAL: Extremities without clubbing, cyanosis, or edema. NEURO: Alert & Oriented x4 to person, place, time, situation. Moves all ext x4 Procedures none Medications and IVs Current Medications Ondansetron HCl 4 mg 4 mg ONCE ONCE PO/SL ; Start 10/08/16 at 18:30; Stop 10/08 at 19:50; Status DC Sodium Chloride (NS 1000 ml Inj) 1,000 ml @ 999 mls/hr BOLUS ONCE IV Last administered on 10/08/16 20:09; Start 10/08/16 at 20:00; Stop 10/08/16 at 21:00 ; Status DC Ondansetron HCl (Zofran Inj) 4 mg ONCE ONCE IV PUSH Last administered on 19:55; Start 10/08/16 at 20:00; Stop 10/08/16 at 20:01; Status DC Pantoprazole Sodium (Protonix Inj) 40 mg ONCE ONCE IVP Last administered on 20:25; Start 10/08/16 at 20:15; Stop 10/08/16 at 20:16; Status DC IV Flush 2 ml 2 ml UNSCH PRN IVF FLUSH AFTER USING IV ACCESS Last administered on 10/08/16 20:25; Start 10/08/16 at 20:15; Stop 10/08/16 at 20:52; Status DC Thiamine HCl/ Sodium Chloride (Thiamine Inj/NS Inj) 101 ml @ 101 mls/hr ONCE ONCE IV Last administered on 10/08/16 20:25; Start 10/08/16 at 20:15; Stop at 21:14; Status DC Lorazepam (Ativan Inj) 1 mg ONCE ONCE IV PUSH Last administered on 10/08/16 20:25; Start 10/08/16 at 20:15; Stop 10/08/16 at 20:16; Status DC IV Flush (NS Flush) 2 ml UNSCH PRN FLUSH FLUSH AFTER USING IV ACCESS; Start at 21:00 IV Flush (NS Flush) 2 ml BID FLUSH Last administered on 10/09/16 22:02; Start 10/08/16 at 21:00 Naloxone HCl (Narcan Inj) 0.4 mg UNSCH PRN IV SEE LABEL COMMENTS; Start at 21:00 Thiamine HCl (Vitamin B1) 100 mg DAILY PO Last administered on 10/10/16 09:03 ; Start 10/09/16 at 09:00 Lorazepam (Ativan Inj) 1 mg Q2H PRN IV PUSH withdrawal symptoms; Start at 21:00 Chlordiazepoxide 25 mg 25 mg TID PO Last administered on 10/10/16 12:38; Start 10/09/16 at 09:00 Sodium Chloride (NS 1000 ml Inj) 1,000 ml @ 84 mls/hr [id number] IV Last administered on 10/09/16 05:36; Start 10/09/16 at 03:30; Stop 10/09/16 at 07:55 ; Status DC Dextrose (D50w (Vial) Inj) 25 ml UNSCH PRN IV PUSH HYPOGLYCEMIA-SEE COMMENTS; Start 10/09/16 at 03:30 Glucagon 1 mg 1 mg UNSCH PRN OTHER HYPOGLYCEMIA-SEE COMMENTS; Start 10/09/16 at 03:30 Pantoprazole Sodium/Sodium Chloride (Protonix Inj/NS Inj) 100 ml @ 10 mls/hr CONTINUOUS IV Last administered on 10/10/16 09:03; Start 10/09/16 at 04:30 Ondansetron HCl 4 mg 4 mg Q6H PRN IV PUSH nausea; Start 10/09/16 at 04:30 Dextrose/Sodium Chloride (D5W-1/2 NS 1000 ml Inj) 1,000 ml @ 84 mls/hr [id number] IV Last administered on 10/10/16 09:03; Start 10/09/16 at 08:00 Insulin Human Regular (NovoLIN R INJ) 10 units ONCE ONCE SQ Last administered on 10/09/16 22:02; Start 10/09/16 at 21:30; Stop 10/09/16 at 21:31; Status DC A/P Assessment and Plan A/P hyponatremiasecondary to GI loss from nausea/vomiting. improved. -Trend BMP -continue IV fluid Nausea/vomitingpossible gastritis. No acute findings on physical exam. Abdomen is quite benign. Lipase levels normal -EGD in am- GI following. -Antiemetics as needed ARNOLD, likely due to dehydration- improving on IV hydration -Continue supportive IVF -Trend BMP Leukocytosis- resolved GI bleed- initially this was suspected because patient was complaining of his vomitus becoming dark in color. -Protonix IV continuous -Consulted GI- EGD as noted above. Diabetes, chronic -Accu-Cheks with SSI EtOH abuse -Ativan as needed, thiamine PO, Librium scheduled- will start to taper down librium. -Withdrawal precautions Elke Gordon MD Oct 10, 2016 12:59
[2016-10-10] MEDS ORDERED: GLUCAGON 1 MG/ML VIAL OTHER PRN (13:00)
[2016-10-10] MEDS ORDERED: DEXTROSE 50% IN WATER 50 ML VIAL(D50) IV PUSH PRN (13:00)
[2016-10-10] MEDS: SODIUM CHLOR 0.9% 1000 ML INJ 1,000 ML IV SCH (17:48)
[2016-10-10] MEDS: INSULIN ASPART SUPPLEMENTAL SCALE SQ SCH ×2 (17:49→22:15)
[2016-10-11] VITALS (7 sets, daily range): BP systolic 100–146; BP diastolic 56–82; PULSE 57–80; RESP 16–20; TEMP 97.6–98.6; O2SAT 92–99
[2016-10-11] MEDS: SODIUM CHLOR 0.9% 1000 ML INJ 1,000 ML IV SCH (04:22)
[2016-10-11] MEDS: PANTOPRAZOLE INJ 80 MG in SODIUM CHLORIDE 0.9% INJ 100 ML IV SCH (04:44)
[2016-10-11] MEDS: INSULIN ASPART SUPPLEMENTAL SCALE SQ SCH ×2 (06:37→10:58)
--- NOTE | 2016-10-11 08:13 | HHI.PR ---
Subjective Remarks in no acute distress. no abdominal pain, nausea or vomiting. no new complaints. Objective Vitals Vital Signs Date Time Temp Pulse Resp B/P Pulse Ox O2 Delivery O2 Flow Rate FiO2 10/11/16 07:44 59 10/11/16 07:31 98.0 76 16 109/73 94 10/11/16 04:12 97.6 59 20 124/61 96 10/11/16 02:31 60 10/11/16 00:08 98.0 80 20 100/56 99 10/10/16 20:17 97.8 71 20 111/55 96 10/10/16 18:30 56 10/10/16 16:14 98.0 66 19 123/73 98 10/10/16 11:22 98.1 91 19 106/67 97 I/O 10/10/16 10/10/16 10/10/16 10/11/16 10/11/16 10/11/16 07:00 15:00 23:00 07:00 15:00 23:00 Intake Total 240 ml Output Total 550 ml 1100 ml Balance -310 ml -1100 ml Intake Oral 240 ml Output Urine Total 550 ml 1100 ml # Voids 2 Result Diagram: 10/09/16 1548 10/09/16 1548 Imaging Last Impressions Chest X-Ray 10/09/16818 Signed Impressions: Service Date/Time: Sunday, October 09, 2016 08:44 - CONCLUSION: No acute cardiac pulmonary disease. Chas Mensah MD Abdomen X-Ray 10/09/16818 Signed Impressions: Service Date/Time: Sunday, October 09, 2016 08:46 - CONCLUSION: Nonspecific , nonobstructive bowel gas pattern most characteristic of an ileus or gastroenteritis. Chas Mensah MD Liver Ultrasound 10/09/16 0000 Signed Impressions: Service Date/Time: Sunday, October 09, 2016 13:31 - CONCLUSION: 1. The liver is enlarged with mild heterogeneity and increased echogenicity most characteristic of fatty infiltration. 2. Small amount of apparent debris or sludge in the gallbladder as well as a small stone or possible gallbladder wall polyp. 3. Focal scarring involving the left kidney as well as an ill-defined hypoechoic area. This does not appear significantly changed from the prior outside ultrasound and was previously evaluated with MRI which demonstrated focal scarring and small simple cyst. Chas Mensah MD Objective Remarks GENERAL: This is a well-nourished, well-developed patient, in no apparent distress. CARDIOVASCULAR: Regular rate and regular rhythm without murmurs, gallops, or rubs. RESPIRATORY: Clear to auscultation. Breath sounds equal bilaterally. No wheezes , rales, or rhonchi. GASTROINTESTINAL: Abdomen soft, non-tender, nondistended. Normal, active bowel sounds MUSCULOSKELETAL: Extremities without clubbing, cyanosis, or edema. NEURO: Alert & Oriented x4 to person, place, time, situation. Moves all ext x4 Procedures none Medications and IVs Current Medications Ondansetron HCl 4 mg 4 mg ONCE ONCE PO/SL ; Start 10/08/16 at 18:30; Stop 10/08 at 19:50; Status DC Sodium Chloride (NS 1000 ml Inj) 1,000 ml @ 999 mls/hr BOLUS ONCE IV Last administered on 10/08/16 20:09; Start 10/08/16 at 20:00; Stop 10/08/16 at 21:00 ; Status DC Ondansetron HCl (Zofran Inj) 4 mg ONCE ONCE IV PUSH Last administered on 19:55; Start 10/08/16 at 20:00; Stop 10/08/16 at 20:01; Status DC Pantoprazole Sodium (Protonix Inj) 40 mg ONCE ONCE IVP Last administered on 20:25; Start 10/08/16 at 20:15; Stop 10/08/16 at 20:16; Status DC IV Flush 2 ml 2 ml UNSCH PRN IVF FLUSH AFTER USING IV ACCESS Last administered on 10/08/16 20:25; Start 10/08/16 at 20:15; Stop 10/08/16 at 20:52; Status DC Thiamine HCl/ Sodium Chloride (Thiamine Inj/NS Inj) 101 ml @ 101 mls/hr ONCE ONCE IV Last administered on 10/08/16 20:25; Start 10/08/16 at 20:15; Stop at 21:14; Status DC Lorazepam (Ativan Inj) 1 mg ONCE ONCE IV PUSH Last administered on 10/08/16 20:25; Start 10/08/16 at 20:15; Stop 10/08/16 at 20:16; Status DC IV Flush (NS Flush) 2 ml UNSCH PRN FLUSH FLUSH AFTER USING IV ACCESS; Start at 21:00 IV Flush (NS Flush) 2 ml BID FLUSH Last administered on 10/10/16 22:15; Start 10/08/16 at 21:00 Naloxone HCl (Narcan Inj) 0.4 mg UNSCH PRN IV SEE LABEL COMMENTS; Start at 21:00 Thiamine HCl (Vitamin B1) 100 mg DAILY PO Last administered on 10/10/16 09:03 ; Start 10/09/16 at 09:00 Lorazepam (Ativan Inj) 1 mg Q2H PRN IV PUSH withdrawal symptoms; Start at 21:00 Chlordiazepoxide 25 mg 25 mg TID PO Last administered on 10/10/16 12:38; Start 10/09/16 at 09:00; Stop 10/10/16 at 13:00; Status DC Sodium Chloride (NS 1000 ml Inj) 1,000 ml @ 84 mls/hr [id number] IV Last administered on 10/09/16 05:36; Start 10/09/16 at 03:30; Stop 10/09/16 at 07:55 ; Status DC Dextrose (D50w (Vial) Inj) 25 ml UNSCH PRN IV PUSH HYPOGLYCEMIA-SEE COMMENTS; Start 10/09/16 at 03:30; Stop 10/10/16 at 13:11; Status DC Glucagon 1 mg 1 mg UNSCH PRN OTHER HYPOGLYCEMIA-SEE COMMENTS; Start 10/09/16 at 03:30; Stop 10/10/16 at 13:11; Status DC Pantoprazole Sodium/Sodium Chloride (Protonix Inj/NS Inj) 100 ml @ 10 mls/hr CONTINUOUS IV Last administered on 10/11/16 04:44; Start 10/09/16 at 04:30 Ondansetron HCl 4 mg 4 mg Q6H PRN IV PUSH nausea; Start 10/09/16 at 04:30 Dextrose/Sodium Chloride (D5W-1/2 NS 1000 ml Inj) 1,000 ml @ 84 mls/hr [id number] IV Last administered on 10/10/16 09:03; Start 10/09/16 at 08:00; Stop at 12:57; Status DC Insulin Human Regular (NovoLIN R INJ) 10 units ONCE ONCE SQ Last administered on 10/09/16 22:02; Start 10/09/16 at 21:30; Stop 10/09/16 at 21:31; Status DC Dextrose (D50w (Vial) Inj) 25 ml UNSCH PRN IV PUSH HYPOGLYCEMIA-SEE COMMENTS; Start 10/10/16 at 13:00 Glucagon (Glucagon Inj) 1 mg UNSCH PRN OTHER HYPOGLYCEMIA-SEE COMMENTS; Start 10/10/16 at 13:00 Insulin Aspart 1 1 ACHS SLIDING SCALE SQ Last administered on 10/10/16 22:15 ; Start 10/10/16 at 16:00 Sodium Chloride (NS 1000 ml Inj) 1,000 ml @ 75 mls/hr [id number] IV Last administered on 10/11/16 04:22; Start 10/10/16 at 13:00 Chlordiazepoxide (Librium) 20 mg TID PO Last administered on 10/10/16 17:48; Start 10/10/16 at 13:00 A/P Assessment and Plan A/P hyponatremiasecondary to GI loss from nausea/vomiting. improved. -continue IV fluid Nausea/vomitingpossible gastritis. improved. No acute findings on physical exam. Abdomen is quite benign. Lipase levels normal -EGD today- GI following. -Antiemetics as needed ARNOLD, likely due to dehydration- improved on IV hydration -Continue supportive IVF Leukocytosis- resolved GI bleed- initially this was suspected because patient was complaining of his vomitus becoming dark in color. -Protonix IV continuous -Consulted GI- EGD as noted above. Diabetes, chronic -Accu-Cheks with SSI EtOH abuse -Ativan as needed, thiamine PO, Librium scheduled- tapering down the librium. -Withdrawal precautions Discharge Planning dc home-hopefully soon-pending EGD and GI recommendations. d/w the patient. Elke Gordon MD Oct 11, 2016 08:13
[2016-10-11] MEDS ORDERED: VITA100T2 PO (08:14)
[2016-10-11] MEDS ORDERED: MULT1TAB84 PO (08:14)
[2016-10-11] MEDS: THIAMINE HCL 100 MG TAB PO SCH (09:00)
[2016-10-11] MEDS: SODIUM CHLORIDE 0.9% FLUSH 5 ML FLUSH FLUSH SCH (09:00)
--- NOTE | 2016-10-11 13:05 | HHI.GIFU ---
GI Follow-up Note Consult Follow-up POST PROCEDURE NOTE ASSESSMENT/PLAN: 1. Anila esophagitis 2. La class C ulcerative esophagitis s/p Bx 3. gastritis s/p bx 4. hiatal hernia 5. Normal du PLAN: 1. Recommend Protonix 40 mg once per day 2. Nystatin 5 ml swish and swallow TID x 7 days 3. Diet as tolerated 4. AVoid ETOH 5. Avoid NSAIDS 6. No objection to dc from GI stand point. It was a pleasure seeing Devante South Thank you for this consult. Entered by: Michael Gross MD Oct 11, 2016 13:05
[2016-10-11] MEDS ORDERED: PROT40TA PO (15:10)
[2016-10-11] MEDS ORDERED: NYST1000 SWISH-SWAL (15:10)
--- NOTE | 2016-10-11 15:14 | HHI.DS ---
Discharge Summary Admission Date Oct 08, 2016 at 20:52 Discharge Date: Oct 11, 2016 Admitting Diagnosis Hyponatremia/Vomitting/ETOH abuse (1) Acute hyponatremia ICD Code: E87.1 Diagnosis: Principal (2) Nausea and vomiting ICD Code: R11.2 Diagnosis: Principal (3) ARNOLD (acute kidney injury) ICD Code: N17.9 Diagnosis: Principal (4) GI bleed ICD Code: K92.2 Diagnosis: Principal (5) Leukocytosis ICD Code: D72.829 Diagnosis: Principal (6) Diabetes mellitus ICD Code: E11.9 Diagnosis: Secondary (7) ETOH abuse ICD Code: F10.10 Diagnosis: Secondary Procedures egd Brief History - From Admission History taken from patient and ED physician. 61 y/o male with a history of HTN, DM, hyperlipidemia, and prostate cancer presented with complaints of nausea and vomiting for the last 2 weeks. He states he vomits about 3 times a day, and is unable to keep solids down. He states today he had blood in his vomit x1. He does have a cough with yellowish/ greenish sputum but denies hemoptysis. He denies any fever, chills or black stools. He states recently he has been really stressed with his home life. 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 Apart from the above, he denies any chest pain/palpitations/shortness of breath/ focal weakness. Denies any passing out episodes or dizziness. CBC/BMP: 10/09/16 1548 10/09/16 1548 Significant Findings Laboratory Tests Test 10/08/16 10/08/16 10/08/16 10/09/16 18:40 19:40 19:45 01:26 White Blood Count 12.5 TH/MM3 (4.0-11.0) Red Blood Count 3.89 MIL/MM3 (4.50-5.90) Mean Corpuscular Volume 100.8 FL (80.0-100.0) Mean Corpuscular Hemoglobin 35.7 PG (27.0-34.0) Neutrophils (%) (Auto) 91.3 % (16.0-70.0) Lymphocytes (%) (Auto) 5.7 % (9.0-44.0) Neutrophils # (Auto) 11.4 TH/MM3 (1.8-7.7) Lymphocytes # (Auto) 0.7 TH/MM3 (1.0-4.8) Sodium Level 124 MEQ/L 128 MEQ/L (136-145) (136-145) Chloride Level 83 MEQ/L 92 MEQ/L (98-107) (98-107) Carbon Dioxide Level 17.0 MEQ/L 20.6 MEQ/L (21.0-32.0) (21.0-32.0) Anion Gap 24 MEQ/L (5-15) Blood Urea Nitrogen 31 MG/DL (7-18) 28 MG/DL (7-18) Creatinine 2.19 MG/DL 1.50 MG/DL (0.60-1.30) (0.60-1.30) Estimat Glomerular Filtration 31 ML/MIN (>89) 48 ML/MIN (>89) Rate Calcium Level 8.3 MG/DL 7.7 MG/DL (8.5-10.1) (8.5-10.1) Aspartate Amino Transf 57 U/L (15-37) (AST/SGOT) Alanine Aminotransferase 83 U/L (12-78) (ALT/SGPT) Ethyl Alcohol Level 170 MG/DL (0-5) Serum Osmolality 318 MOSM/KG (275-295) Urine Turbidity HAZY (CLEAR) Urine Ketones 10 mg/dL (NEG) Hemoglobin 11.8 GM/DL (13.0-17.0) Hematocrit 32.3 % (39.0-51.0) Random Glucose 131 MG/DL (74-106) Test 10/09/16 10/09/16 04:35 15:48 Red Blood Count 3.30 MIL/MM3 (4.50-5.90) Hemoglobin 11.8 GM/DL 12.6 GM/DL (13.0-17.0) (13.0-17.0) Hematocrit 32.5 % 34.2 % (39.0-51.0) (39.0-51.0) Mean Corpuscular Hemoglobin 35.8 PG (27.0-34.0) Mean Corpuscular Hemoglobin 36.3 % Concent (32.0-36.0) Platelet Count 123 TH/MM3 (150-450) Neutrophils (%) (Auto) 77.9 % (16.0-70.0) Monocytes (%) (Auto) 10.4 % (0.0-8.0) Sodium Level 128 MEQ/L 132 MEQ/L (136-145) (136-145) Chloride Level 90 MEQ/L 93 MEQ/L (98-107) (98-107) Blood Urea Nitrogen 28 MG/DL (7-18) 23 MG/DL (7-18) Creatinine 1.42 MG/DL (0.60-1.30) Estimat Glomerular Filtration 51 ML/MIN (>89) 65 ML/MIN (>89) Rate Random Glucose 156 MG/DL 170 MG/DL (74-106) (74-106) Calcium Level 7.8 MG/DL (8.5-10.1) PE at Discharge GENERAL: This is a well-nourished, well-developed patient, in no apparent distress. CARDIOVASCULAR: Regular rate and regular rhythm without murmurs, gallops, or rubs. RESPIRATORY: Clear to auscultation. Breath sounds equal bilaterally. No wheezes , rales, or rhonchi. GASTROINTESTINAL: Abdomen soft, non-tender, nondistended. Normal, active bowel sounds MUSCULOSKELETAL: Extremities without clubbing, cyanosis, or edema. NEURO: Alert & Oriented x4 to person, place, time, situation. Moves all ext x4 Hospital Course hyponatremiasecondary to GI loss from nausea/vomiting. improved. -continue IV fluid Nausea/vomitingpossible gastritis. improved. No acute findings on physical exam. Abdomen is quite benign. Lipase levels normal -EGD today- GI following. -Antiemetics as needed ARNOLD, likely due to dehydration- improved on IV hydration -Continue supportive IVF Leukocytosis- resolved GI bleed- initially this was suspected because patient was complaining of his vomitus becoming dark in color. -Protonix IV continuous -Consulted GI- EGD as noted above. Diabetes, chronic -Accu-Cheks with SSI EtOH abuse -Ativan as needed, thiamine PO, Librium scheduled- tapering down the librium. -Withdrawal precautions Pt Condition on Discharge: Good Discharge Disposition: Discharge Home Discharge Time: <= 30 minutes Discharge Instructions DIET: Follow Instructions for: Heart Healthy Diet Activities you can perform: Regular-No Restrictions Elke Gordon MD Oct 11, 2016 15:13
[2016-10-11] MEDS ORDERED: PROPOFOL 200 MG/20 ML AMP IV ONE (16:29)
== END 2016-10-11 16:30 | disposition home or self-care (01) | DRG 641 ==
LOC: NEPA 15:36 → NEDA 20:52 → NEPFCDU 23:39
PROVIDERS: ADMIT Internal Medicine; ATTEND Internal Medicine
PROC: 0DB18ZX Excision of Upper Esophagus, Via Natural or Artificial Opening Endoscopic, Diagnostic (ICD-10-PCS; 2016-10-11)
PROC: 0DB28ZX Excision of Middle Esophagus, Via Natural or Artificial Opening Endoscopic, Diagnostic (ICD-10-PCS; 2016-10-11)
PROC: 0DB38ZX Excision of Lower Esophagus, Via Natural or Artificial Opening Endoscopic, Diagnostic (ICD-10-PCS; 2016-10-11)
PROC: 0DB98ZX Excision of Duodenum, Via Natural or Artificial Opening Endoscopic, Diagnostic (ICD-10-PCS; principal; 2016-10-11 12:30)
DX: E87.1 Hypo-osmolality and hyponatremia (principal); E86.0 Dehydration; N17.9 Acute kidney failure, unspecified; K92.0 Hematemesis; D62 Acute posthemorrhagic anemia; B37.81 Candidal esophagitis; K22.10 Ulcer of esophagus without bleeding; D72.829 Elevated white blood cell count, unspecified; E11.9 Type 2 diabetes mellitus without complications; E78.5 Hyperlipidemia, unspecified; F10.129 Alcohol abuse with intoxication, unspecified; Z85.46 Personal history of malignant neoplasm of prostate; K70.10 Alcoholic hepatitis without ascites; I10 Essential (primary) hypertension; F17.210 Nicotine dependence, cigarettes, uncomplicated; Z51.5 Encounter for palliative care; K44.9 Diaphragmatic hernia without obstruction or gangrene
CPT/HCPCS: 71020; 74000; 76705; 80048; 80053; 80320; 81001; 82948; 83690; 83735; 83930; 85014; 85018; 85025; 88305; 88312; 96365; 96375; C9113; J1815; J2060; J2405; J3411; J7030

== ENCOUNTER 2017-06-14 09:44 | Inpatient (IN) | payer OTHER ==
[~2017-06-14] VITALS: Ht 175.3 cm; Wt 78.0 kg
[2017-06-14] VITALS (12 sets, daily range): BP systolic 66–81; BP diastolic 45–62; PULSE 69–101; RESP 16; TEMP 97.7–98; O2SAT 95–98
[~2017-06-14 09:44] MED LIST changes: -CALC250 PO; -CHLO25 PO; -FOLI1 PO; +LISI-515 PO; -METF-324 PO; +METF1000 PO; +MULT1TAB84 PO; -NORC10TA2 PO; +NYST1000 SWISH-SWAL; -PANT40P IV PUSH; +PROT40TA PO; -THIA100T PO; +VITA100T2 PO
--- NOTE | 2017-06-14 10:27 | PD ---
HPI Chief Complaint: Medical Clearance Time Seen by Provider: 10:21 Travel History International Travel<30 days: No Contact w/Intl Traveler<30days: No Traveled to known affect area: No History of Present Illness HPI 61-year-old male complains of generalized malaise and weakness nausea vomiting and abdominal discomfort. Patient states that symptoms started several days ago. Patient has history of hypertension and diabetes. Patient states that he has not taking his medication today. Patient denies any headache. Patient denies any chest pain or shortness of breath. Patient states that he has mild diffuse abdominal discomfort today. Patient denies any diarrhea or blood or mucus in the stool. Patient denies any dysuria or frequency. Patient states that he has intermittent fever recently. Patient has history of chronic right shoulder pain secondary to recent injury. Patient states that she has decrease in urine output recently. PFSH Past Medical History Cancer: Yes (PROSTATE) Cardiovascular Problems: Yes (HTN) High Cholesterol: Yes Chemotherapy: No Diabetes: Yes Patient Takes Glucophage: No Endocrine: Yes Hypertension: Yes Immune Disorder: No Musculoskeletal: No Neurologic: No Psychiatric: No Reproductive: No Radiation Therapy: No Tetanus Vaccination: < 5 Years Past Surgical History Eye Surgery: Yes (CATARACTS) Prostatectomy: Yes Tonsillectomy: Yes Social History Alcohol Use: Yes Tobacco Use: Yes Substance Use: No Allergies-Medications (Allergen,Severity, Reaction): Coded Allergies: No Known Allergies (Verified , 06/14/17) Reported Meds & Prescriptions Reported Meds & Active Scripts Active Nystatin Liq 100,000 unit/ml Susp 5 Ml SWISH-SWAL TID 7 Days Reported Lisinopril 20 Mg Tab 20 Mg PO DAILY Metformin (Metformin HCl) 1,000 Mg Tab 1,000 Mg PO BIDPC With meals Review of Systems General / Constitutional: No: Fever Eyes: No: Visual changes HENT: No: Headaches Cardiovascular: No: Chest Pain or Discomfort Respiratory: No: Shortness of Breath Gastrointestinal: Positive: Nausea, Vomiting, No: Abdominal Pain Genitourinary: No: Dysuria Musculoskeletal: No: Pain Skin: No Rash Neurologic: No: Weakness Psychiatric: No: Depression Endocrine: No: Polydipsia Hematologic/Lymphatic: No: Easy Bruising Physical Exam Narrative GENERAL: Well-nourished, well-developed patient. SKIN: Focused skin assessment warm/dry. HEAD: Normocephalic. EYES: No scleral icterus. No injection or drainage. NECK: Supple, trachea midline. No JVD or lymphadenopathy. CARDIOVASCULAR: Regular rate and rhythm without murmurs, gallops, or rubs. RESPIRATORY: Breath sounds equal bilaterally. No accessory muscle use. GASTROINTESTINAL: Abdomen soft, nondistended. Mild diffuse tenderness over the abdomen. No rebound tenderness. No mass. MUSCULOSKELETAL: No cyanosis, or edema. BACK: Nontender without obvious deformity. No CVA tenderness. Neurologic exam normal. Data Data Last Documented VS Vital Signs Date Time Temp Pulse Resp B/P (MAP) Pulse Ox O2 Delivery O2 Flow Rate FiO2 06/14/17 11:30 77 78/49 06/14/17 11:13 16 97 Nasal Cannula 2.00 06/14/17 10:46 98.0 Orders Orders Electrocardiogram (06/14/17 10:21) Complete Blood Count With Diff (06/14/17 10:21) Comprehensive Metabolic Panel (06/14/17 10:21) Prothrombin Time / Inr (Pt) (06/14/17 10:21) Act Partial Throm Time (Ptt) (06/14/17 10:21) Lactic Acid Sepsis Protocol (06/14/17 10:21) Lipase (06/14/17 10:21) Ckmb (Isoenzyme) Profile (06/14/17 10:21) Troponin I (06/14/17 10:21) Urinalysis - C+S If Indicated (06/14/17 10:21) Blood Culture (06/14/17 10:21) Chest, Single Ap (06/14/17 10:21) Blood Glucose (06/14/17 10:21) Ecg Monitoring (06/14/17 10:21) Iv Access Insert/Monitor (06/14/17 10:21) Oximetry (06/14/17 10:21) Oxygen Administration (06/14/17 10:21) Ct Abd/Pel W Iv Contrast(Rout) (06/14/17 10:21) Sodium Chlor 0.9% 1000 Ml Inj (Ns 1000 M (06/14/17 10:30) Sodium Chlor 0.9% 1000 Ml Inj (Ns 1000 M (06/14/17 10:30) Norepinephrine-Dextrose Drip (Levophed-D (06/14/17 11:00) Terbutaline Inj (Brethine Inj) (06/14/17 11:00) Sodium Chlor 0.9% 1000 Ml Inj (Ns 1000 M (06/14/17 11:00) Vancomycin Inj (Vancomycin Inj) (06/14/17 11:00) Piperacil-Tazo 3.375 Gm Premix (Zosyn 3. (06/14/17 11:00) CKMB (06/14/17 10:20) CKMB% (06/14/17 10:20) Labs Laboratory Tests Test 06/14/17 10:20 White Blood Count 17.3 TH/MM3 Red Blood Count 4.02 MIL/MM3 Hemoglobin 14.4 GM/DL Hematocrit 40.9 % Mean Corpuscular Volume 102.0 FL Mean Corpuscular Hemoglobin 35.8 PG Mean Corpuscular Hemoglobin Concent 35.1 % Red Cell Distribution Width 13.1 % Platelet Count 108 TH/MM3 Mean Platelet Volume 9.9 FL Neutrophils (%) (Auto) 88.8 % Lymphocytes (%) (Auto) 5.4 % Monocytes (%) (Auto) 5.8 % Eosinophils (%) (Auto) 0.0 % Basophils (%) (Auto) 0.0 % Neutrophils # (Auto) 15.4 TH/MM3 Lymphocytes # (Auto) 0.9 TH/MM3 Monocytes # (Auto) 1.0 TH/MM3 Eosinophils # (Auto) 0.0 TH/MM3 Basophils # (Auto) 0.0 TH/MM3 CBC Comment DIFF FINAL Differential Comment Prothrombin Time 11.8 SEC Prothromb Time International Ratio 1.1 RATIO Activated Partial Thromboplast Time 27.0 SEC Blood Urea Nitrogen 63 MG/DL Creatinine 6.94 MG/DL Random Glucose 275 MG/DL Total Protein 7.3 GM/DL Albumin 4.4 GM/DL Calcium Level 7.4 MG/DL Alkaline Phosphatase 72 U/L Aspartate Amino Transf (AST/SGOT) 31 U/L Alanine Aminotransferase (ALT/SGPT) 81 U/L Total Bilirubin 1.4 MG/DL Sodium Level 128 MEQ/L Potassium Level 4.2 MEQ/L Chloride Level 77 MEQ/L Carbon Dioxide Level 24.0 MEQ/L Anion Gap 27 MEQ/L Estimat Glomerular Filtration Rate 8 ML/MIN Lactic Acid Level 3.3 mmol/L Protein Corrected Calcium 7.4 MG/DL Total Creatine Kinase 140 U/L Creatine Kinase MB 3.0 NG/ML Troponin I LESS THAN 0.02 NG/ML Lipase 330 U/L MDM Medical Decision Making Medical Screen Exam Complete: Yes Emergency Medical Condition: Yes Interpretation(s) 11:54 AM. CBC WBC 17.3. Hemoglobin 14.4 hematocrit 40.9. MCV 102. 88 neutrophil. Sodium 128. Chloride 77. BUN 63. Creatinine 6.94. Glucose 275. Protein corrected calcium 7.4. Cardiac enzymes are normal. Differential Diagnosis Differential diagnosis including dehydration, electrolyte abnormality, gastroenteritis, gastritis, PUD, pancreatitis, cholecystitis, colitis, UTI, pyelonephritis, nephrolithiasis. Narrative Course 61-year-old male with generalized malaise and weakness, abdominal discomfort, nausea vomiting. Normal saline solution 3 L IV bolus. Levophed drip started to keep MAP above 65. Vancomycin 1 g IV. Zosyn 3.375 g IV. Bret Bianchi MD Jun 14, 2017 10:27
[2017-06-14] MEDS ORDERED: SODIUM CHLOR 0.9% 1000 ML INJ 1,000 ML IV ONE ×3 (10:30→11:00)
[2017-06-14 10:43] LABS: AUTOMATED NEUTROPHIL # 15.4 TH/MM3 (1.8-7.7); HEMATOCRIT 40.9 % (39.0-51.0); HEMO FLAGS DIFF FINAL; LYMPH % 5.4 % (9.0-44.0); LYMPHOCYTE # 0.9 TH/MM3 (1.0-4.8); MEAN CORPUSCULAR HEMOGLOBIN 35.8 PG (27.0-34.0); MEAN CORPUSCULAR HGB CONC 35.1 % (32.0-36.0); MONO % 5.8 % (0.0-8.0); NEUT % 88.8 % (16.0-70.0); PLATELET COUNT 108 TH/MM3 (150-450); RED BLOOD COUNT 4.02 MIL/MM3 (4.50-5.90); RED CELL DISTRIBUTION WIDTH 13.1 % (11.6-17.2); WHITE BLOOD COUNT 17.3 TH/MM3 (4.0-11.0)
--- NOTE | 2017-06-14 10:43 | RADRPT ---
EXAM DATE/TIME: 06/14/2017 10:36 [facility] COMPARISON: CHEST SINGLE AP, May 27, 2015, 12:09. INDICATIONS : Weak, vomiting and feels lousy MEDICAL HISTORY : None. SURGICAL HISTORY : None. ENCOUNTER: Subsequent ACUITY: 2 days PAIN SCORE: 0/10 LOCATION: Bilateral chest FINDINGS: Portable AP view of the chest demonstrates a normal-sized cardiac silhouette. No effusion, consolidat ion, or pneumothorax is visualized. The bones and soft tissues demonstrate no acute abnormality. CONCLUSION: No acute cardiopulmonary abnormality is identified. Dimitris Faye MD on June 14, 2017 at 10:41 Board Certified Radiologist. This report was verified electronically.
[2017-06-14 10:56] LABS: INTERNATIONAL NORMALIZED RATIO 1.1 RATIO; PROTHROMBIN TIME - PATIENT 11.8 SEC (9.8-11.6)
[2017-06-14] MEDS ORDERED: TERBUTALINE INJ 1 MG/ML AMP SQ PRN (11:00)
[2017-06-14] MEDS ORDERED: PIPERACIL-TAZO 3.375 GM PREMIX 50 ML IV ONE (11:00)
[2017-06-14] MEDS ORDERED: VANCOMYCIN INJ 1,000 MG in SODIUM CHLOR 0.9% 250 ML INJ 250 ML IV ONE (11:00)
[2017-06-14] MEDS ORDERED: NOREPINEPHRINE-DEXTROSE DRIP 250 ML IV PRN (11:00)
[2017-06-14 11:13] LABS: ALT (GPT) 81 U/L (12-78); ANION GAP 27 MEQ/L (5-15); AST (GOT) 31 U/L (15-37); BLOOD UREA NITROGEN 63 MG/DL (7-18); CHLORIDE 77 MEQ/L (98-107); GLOMERULAR FILTRATION RATE 8 ML/MIN (>89); POTASSIUM 4.2 MEQ/L (3.5-5.1); SODIUM (NA) 128 MEQ/L (136-145)
[2017-06-14 11:23] LABS: ALKALINE PHOSPHATASE 72 U/L (45-117); CREATINE KINASE 140 U/L (39-308); TOTAL BILIRUBIN ADULT 1.4 MG/DL (0.2-1.0)
[2017-06-14 11:27] LABS: CALCIUM-PROTEIN CORRECTED 7.4 MG/DL (8.5-10.1)
--- NOTE | 2017-06-14 12:14 | RADRPT ---
EXAM DATE/TIME: 06/14/2017 11:40 [facility] COMPARISON: No previous studies available for comparison. INDICATIONS : Abdominal pain, right arm weakness, not able to eat. ORAL CONTRAST: No oral contrast ingested. RADIATION DOSE: 9.62 CTDIvol (mGy) MEDICAL HISTORY : Carcinoma, prostate. Cardiovascular disease Hypertension.Diabetes, acute renal failure. SURGICAL HISTORY : Prostectomy ENCOUNTER: Initial ACUITY: 1 month PAIN SCALE: 8/10 LOCATION: Bilateral abdomen. TECHNIQUE: Volumetric scanning of the abdomen and pelvis was performed. Using automated exposure control and ad justment of the mA and/or kV according to patient size, radiation dose was kept as low as reasonably achievable to obtain optimal diagnostic quality images. DICOM format image data is available electro nically for review and comparison. FINDINGS: LOWER LUNGS: The visualized lower lungs are clear. LIVER: Homogeneously low in density without lesion. There is no dilation of the biliary tree. No calcified gallstones. SPLEEN: Normal size without lesion. PANCREAS: Within normal limits. KIDNEYS: Normal in size and shape. There is no mass, stone, or hydronephrosis. ADRENAL GLANDS: Within normal limits. VASCULAR: There is no aortic aneurysm. BOWEL/MESENTERY: The stomach, small bowel, and colon demonstrate no acute abnormality. There is no free intraperitone al air or fluid. ABDOMINAL WALL: Within normal limits. RETROPERITONEUM: There is no lymphadenopathy. BLADDER: No wall thickening or mass. REPRODUCTIVE: Within normal limits. INGUINAL: There is no lymphadenopathy or hernia. MUSCULOSKELETAL: Within normal limits for patient age. CONCLUSION: 1. No acute abnormality. 2. Hepatic steatosis. Cory Macias Jr., MD on June 14, 2017 at 12:05 Board Certified Radiologist. This report was verified electronically.
[2017-06-14] MEDS ORDERED: SODIUM CHLOR 0.9% 1000 ML INJ 1,000 ML IV SCH ×2 (12:15→16:30)
[2017-06-14] MEDS ORDERED: CALCIUM GLUCONATE INJ 1 GM in DEXTROSE 5% IN WATER 100ML INJ 100 ML IV ONE ×2 (12:15)
[2017-06-14 12:35] LABS: LACTIC ACID GHOST NOT REPORTABLE
[2017-06-14] MEDS ORDERED: LORazepam 2 MG/ML VIAL IV PUSH PRN ×3 (13:30)
[2017-06-14] MEDS: SODIUM CHLOR 0.9% 1000 ML INJ 1,000 ML IV SCH ×4 (13:30→20:48)
[2017-06-14] MEDS ORDERED: LORazepam 2 MG TAB PO PRN (13:30)
[2017-06-14] MEDS ORDERED: LORazepam 1 MG TAB PO PRN (13:30)
[2017-06-14] MEDS ORDERED: FLUMAZENIL 0.5 MG/5 ML VIAL IV PUSH PRN (13:30)
--- NOTE | 2017-06-14 13:55 | PD.CONS ---
HPI Service Nephrology Consult Requested By Dr. Shanks Reason for Consult Acute renal failure Primary Care Physician Dada Horvath MD, PhD History of Present Illness Patient is a 61-year-old white male with history of prostate cancer status post surgery, smoking, he drinks vodka, he developed nausea, vomiting and diarrhea for the last 3 days and was unable to eat or drink and came in with these complaints with some abdominal pain as well, his baseline creatinine was 1.14 in September and now is about 6 he is hypotensive received 3 L of normal saline blood pressure is 80/50 and he is anuric. Creatinine is 6.94 he has metabolic acidosis and metabolic alkalosis. Review of Systems Constitutional: COMPLAINS OF: Fatigue Gastrointestinal: COMPLAINS OF: Abdominal pain, Diarrhea, Nausea, Vomiting Musculoskeletal: COMPLAINS OF: Joint pain Neurologic: COMPLAINS OF: Abnormal gait Past Family Social History Allergies: Coded Allergies: No Known Allergies (Verified , 06/14/17) Past Medical History Prostate cancer Hypertension Diabetes History of alcoholism Smoking Past Surgical History Prostatectomy Cataract Right arm orthopedic surgery Tonsillectomy Reported Medications Reported Meds & Active Scripts Active Nystatin Liq 100,000 unit/ml Susp 5 Ml SWISH-SWAL TID 7 Days Reported Lisinopril 20 Mg Tab 20 Mg PO DAILY Metformin (Metformin HCl) 1,000 Mg Tab 1,000 Mg PO BIDPC With meals Active Ordered Medications Current Medications Medications (Trade) Dose Ordered Sig/Kelsey Route Start Time Stop Time Status Last Admin Norepinephrine Bitartrate 250 ml @ 7.5 mls/hr TITRATE PRN IV 06/14/17 11:00 06/14/17 11:30 (Brethine Inj) 1 mg UNSCH PRN SQ 06/14/17 11:00 Piperacillin Sod/ Tazobactam Sod 50 ml @ 100 mls/hr Q8H IV 06/14/17 13:30 UNV Sodium Chloride 1,000 ml @ 999 mls/hr Q1H1M IV 06/14/17 13:30 06/14/17 15:30 Sodium Chloride 1,000 ml @ 150 mls/hr Q6H40M IV 06/14/17 13:30 (Romazicon Inj) 0.2 mg Q1M PRN IV PUSH 06/14/17 13:30 UNV (Ativan) 1 mg Q4H PRN PO 06/14/17 13:30 UNV (Ativan Inj) 1 mg Q4H PRN IV PUSH 06/14/17 13:30 UNV (Ativan) 2 mg Q2H PRN PO 06/14/17 13:30 UNV (Ativan Inj) 2 mg Q2H PRN IV PUSH 06/14/17 13:30 UNV (Ativan Inj) 2 mg Q1H PRN IV PUSH 06/14/17 13:30 UNV (Ativan Inj) 2 mg Q15M PRN IV PUSH 06/14/17 13:30 UNV Multivitamins 10 ml/Thiamine HCl 100 mg/Folic Acid 1 mg/Sodium Chloride 511.2 ml @ 125 mls/hr Q24H IV 06/14/17 15:00 Family History Noncontributory Social History Continue to smoke cigarettes Drinks alcohol Vodka Physical Exam Vital Signs Vital Signs Date Time Temp Pulse Resp B/P (MAP) Pulse Ox O2 Delivery O2 Flow Rate FiO2 06/14/17 13:30 78 80/51 06/14/17 12:21 85 16 81/51 (61) 95 Nasal Cannula 2.00 06/14/17 12:00 70 81/51 06/14/17 11:58 70 16 81/51 (61) 95 Nasal Cannula 2.00 06/14/17 11:30 77 78/49 06/14/17 11:13 92 16 80/62 (68) 97 Nasal Cannula 2.00 06/14/17 10:46 98.0 88 16 68/48 (55) 98 Nasal Cannula 2.00 06/14/17 10:45 98 Nasal Cannula 2.00 06/14/17 10:35 98.0 88 16 76/52 (60) 98 Nasal Cannula 2.00 06/14/17 10:04 90 06/14/17 09:48 100 16 66/45 (52) 97 06/14/17 09:46 97.7 101 16 75/50 (58) 98 Physical Exam GENERAL: Well-nourished, well-developed patient. SKIN: Warm and dry. HEAD: Normocephalic. EYES: No scleral icterus. No injection or drainage. NECK: Supple, trachea midline. No JVD or lymphadenopathy. CARDIOVASCULAR: Regular rate and rhythm without murmurs, gallops, or rubs. RESPIRATORY: Breath sounds equal bilaterally. No accessory muscle use. GASTROINTESTINAL: Abdomen soft, non-tender, nondistended. EXTREMITIES: No cyanosis, or edema. NEUROLOGICAL: Awake, alert, and oriented x 3. Non-focal. Laboratory Laboratory Tests Test 06/14/17 10:20 06/14/17 12:40 06/14/17 13:37 White Blood Count 17.3 Red Blood Count 4.02 Hemoglobin 14.4 Hematocrit 40.9 Mean Corpuscular Volume 102.0 Mean Corpuscular Hemoglobin 35.8 Mean Corpuscular Hemoglobin Concent 35.1 Red Cell Distribution Width 13.1 Platelet Count 108 Mean Platelet Volume 9.9 Neutrophils (%) (Auto) 88.8 Lymphocytes (%) (Auto) 5.4 Monocytes (%) (Auto) 5.8 Eosinophils (%) (Auto) 0.0 Basophils (%) (Auto) 0.0 Neutrophils # (Auto) 15.4 Lymphocytes # (Auto) 0.9 Monocytes # (Auto) 1.0 Eosinophils # (Auto) 0.0 Basophils # (Auto) 0.0 CBC Comment DIFF FINAL Differential Comment Prothrombin Time 11.8 Prothromb Time International Ratio 1.1 Activated Partial Thromboplast Time 27.0 Blood Urea Nitrogen 63 Creatinine 6.94 Random Glucose 275 Total Protein 7.3 Albumin 4.4 Calcium Level 7.4 Alkaline Phosphatase 72 Aspartate Amino Transf (AST/SGOT) 31 Alanine Aminotransferase (ALT/SGPT) 81 Total Bilirubin 1.4 Sodium Level 128 Potassium Level 4.2 Chloride Level 77 Carbon Dioxide Level 24.0 Anion Gap 27 Estimat Glomerular Filtration Rate 8 Lactic Acid Level 3.3 Protein Corrected Calcium 7.4 Total Creatine Kinase 140 Creatine Kinase MB 3.0 Troponin I LESS THAN 0.02 Lipase 330 Date/Time Source Procedure Growth Status 06/14/17 10:20 Blood Peripheral Aerobic Blood Culture Pending Received 06/14/17 10:20 Blood Peripheral Anaerobic Blood Culture Pending Received Result Diagram: 06/14/17 1020 06/14/17 1020 Imaging Last Impressions Chest X-Ray 06/14/17 1021 Signed Impressions: Service Date/Time: Wednesday, June 14, 2017 10:36 - CONCLUSION: No acute cardiopulmonary abnormality is identified. Dimitris Faye MD Abdomen/Pelvis CT 06/14/17 1021 Signed Impressions: Service Date/Time: Wednesday, June 14, 2017 11:40 - CONCLUSION: 1. No acute abnormality. 2. Hepatic steatosis. Cory Macias Jr., MD Assessment and Plan Problem List: (1) ARNOLD (acute kidney injury) ICD Codes: N17.9 - Acute kidney failure, unspecified Status: Acute Plan: Likely developed acute tubular necrosis due to hypotension severe dehydration I agree with volume resuscitation Continue to hydrate Check urine sodium UA and will continue monitor BMP Possibility of dialysis if he does not respond to fluids was discussed (2) Acute hyponatremia ICD Codes: E87.1 - Hypo-osmolality and hyponatremia Status: Acute Plan: Due to nausea vomiting and dehydration (3) Nausea and vomiting ICD Codes: R11.2 - Nausea with vomiting, unspecified Status: Acute Plan: GI source (4) Diabetes mellitus ICD Codes: E11.9 - Diabetes mellitus Status: Chronic Plan: Monitor blood glucose Nereida Alcaraz MD Jun 14, 2017 13:55
[2017-06-14] MEDS ORDERED: ONDANSETRON HCL 4 MG/2 ML VIAL IV PUSH PRN (14:00)
[2017-06-14] MEDS: MULTIVITAMIN INJ 10 ML, THIAMINE INJ 100 MG, FOLIC ACID INJ 1 MG in SODIUM CHLORID 0.9%... IV SCH (14:49)
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
[2017-06-14 16:22] LABS: BLOOD GAS BASE EXCESS -4.5 mmol/L (-2-2); BLOOD GAS CARBOXYHEMOGLOBIN 2.2 % (0-4); BLOOD GAS HCO3 19 mmol/L (22-26); BLOOD GAS METHEMOGLOBIN 1.3 % (0-2); BLOOD GAS O2 HGB SATURATION 89 % (90-100); BLOOD GAS OXYGEN CONTENT 14.7 Vol % (12.0-20.0); BLOOD GAS PCO2 29 mmHg (38-42); BLOOD GAS PO2 67 mmHg (61-120); BLOOD GAS TOTAL HGB 11.7 G/DL (12.0-16.0); TEMP CORR TO 98.6
[2017-06-14 16:23] LABS: CRITICAL VALUE YES; OXYGEN DEVICE ROOM AIR
[2017-06-14 16:24] LABS: DRAW SITE RT RADIAL; FIO2 21 %; NUMBER OF ARTERIAL PUNCTURES 1; STAT NO; ULNAR PULSE PRESENT
[2017-06-14 16:33] LABS: C. DIFF EPI 027 PRESUMPTIVE NEGATIVE (NEGATIVE)
[2017-06-14] MEDS ORDERED: GLUCAGON 1 MG/ML VIAL OTHER PRN (16:45)
[2017-06-14] MEDS ORDERED: DEXTROSE 50% IN WATER 50 ML VIAL(D50) IV PUSH PRN (16:45)
[2017-06-14] MEDS: INSULIN ASPART SUPPLEMENTAL SCALE SQ SCH ×2 (17:00→20:48)
[2017-06-14 17:03] LABS: BICARBONATE 21.8 MEQ/L (21.0-32.0); POTASSIUM 3.7 MEQ/L (3.5-5.1)
[2017-06-14 17:04] LABS: TOTAL BILIRUBIN ADULT 0.9 MG/DL (0.2-1.0)
[2017-06-14 17:06] LABS: CALCIUM-PROTEIN CORRECTED 6.9 MG/DL (8.5-10.1)
[2017-06-14] MEDS ORDERED: BUMETANIDE INJ 100 ML IV SCH (17:41)
[2017-06-14] MEDS ORDERED: POTASSIUM BICARBONATE 25 MEQ EFFERVESCENT TAB PO ONE (17:45)
[2017-06-14] MEDS ORDERED: CALCIUM CHLORIDE INJ 2 GM in SODIUM CHLORIDE 0.9% INJ 100 ML IV ONE (17:45)
[2017-06-14] MEDS ORDERED: BUMETANIDE INJ 1 MG/4 ML VIAL IV PUSH ONE (17:45)
[2017-06-14] MEDS ORDERED: POTASSIUM CHLORIDE 25 MEQ EFFERVESCENT TAB PO ONE (18:00)
[2017-06-14] MEDS: PIPERACIL-TAZO 2.25 GM PREMIX 50 ML IV SCH (20:48)
--- NOTE | 2017-06-14 21:13 | EKG ---
Date Performed: 06/14/2017 Time Performed: 10:22:39 PTAGE: 61 years EKG: Sinus rhythm MARKED LEFT AXIS DEVIATION PATTERN CONSISTENT WITH PULMONARY DISEASE PROLONGED QT INTERVAL ABNORMAL ECG PREVIOUS TRACING : 05/27/2015 12.01 Compared to prior tracing no significant change DOCTOR: Tim Olivera Interpretating Date/Time 06/14/2017 21:11:39
[2017-06-14 22:21] LABS: BACTERIA, URINE OCC /hpf; BLOOD, URINE SMALL (NEG); GLUCOSE,URINE 70 mg/dL (NEG); HYALINE CAST, URINE 1 /lpf (RARE); KETONE, URINE 10 mg/dL (NEG); NITRITE,URINE NEG (NEG); PH, URINE 5.5 (5.0-8.5); URINE COLOR LIGHT-YELLOW (YELLW/STRAW)
[2017-06-14 22:22] LABS: COMMENT (UR) CATH-CULTURE IND; CULTURE IF INDICATED CATH CULTURE IND
[2017-06-15] VITALS (10 sets, daily range): BP systolic 99; BP diastolic 67; PULSE 79–90; RESP 21; TEMP 97.6–98.4; O2SAT 96
[2017-06-15] MEDS: INSULIN ASPART SUPPLEMENTAL SCALE SQ SCH ×6 (00:57→21:00)
[2017-06-15] MEDS: PIPERACIL-TAZO 2.25 GM PREMIX 50 ML IV SCH ×3 (04:34→23:03)
[2017-06-15] MEDS: SODIUM CHLOR 0.9% 1000 ML INJ 1,000 ML IV SCH (04:34)
[2017-06-15 08:44] LABS: AUTOMATED NEUTROPHIL # 8.4 TH/MM3 (1.8-7.7); BASOPHIL % 0.1 % (0.0-2.0); EOSINOPHIL % 0.1 % (0.0-4.0); LYMPH % 6.8 % (9.0-44.0); LYMPHOCYTE # 0.7 TH/MM3 (1.0-4.8); MEAN CELL VOLUME 102.6 FL (80.0-100.0); MEAN CORPUSCULAR HGB CONC 35.1 % (32.0-36.0); MONO % 6.3 % (0.0-8.0); NEUT % 86.7 % (16.0-70.0); PLATELET COUNT 57 TH/MM3 (150-450); RED BLOOD COUNT 3.71 MIL/MM3 (4.50-5.90); RED CELL DISTRIBUTION WIDTH 12.9 % (11.6-17.2); WHITE BLOOD COUNT 9.7 TH/MM3 (4.0-11.0)
[2017-06-15 08:47] LABS: HEMO FLAGS AUTO DIFF
[2017-06-15 09:08] LABS: ALKALINE PHOSPHATASE 58 U/L (45-117); ALT (GPT) 83 U/L (12-78); ANION GAP 13 MEQ/L (5-15); AST (GOT) 79 U/L (15-37); BICARBONATE 22.6 MEQ/L (21.0-32.0); BLOOD UREA NITROGEN 62 MG/DL (7-18); CHLORIDE 105 MEQ/L (98-107); GLOMERULAR FILTRATION RATE 8 ML/MIN (>89); POTASSIUM 3.6 MEQ/L (3.5-5.1); SODIUM (NA) 141 MEQ/L (136-145); TOTAL BILIRUBIN ADULT 0.7 MG/DL (0.2-1.0)
[2017-06-15 09:25] LABS: BANDS 14 % (0-6); NEUTROPHIL # MANUAL DIFF 8.4 TH/MM3 (1.8-7.7); PLATELET ESTIMATE SMEAR LOW (NORMAL); POLYS (SEG NEUTROPHILS) 73 % (16-70); WBC DIFF SAMPLE 100
[2017-06-15 09:26] LABS: PLATELET MORPHOLOGY NORMAL (NORMAL); SCAN/DIFF FINAL DIFF MANUAL
[2017-06-15] MEDS: LORazepam 2 MG/ML VIAL IV PUSH PRN ×2 (10:26→23:04)
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
[2017-06-15] MEDS ORDERED: BUMETANIDE INJ 100 ML IV SCH (12:00)
--- NOTE | 2017-06-15 12:58 | HHI.NPPN ---
Subjective History of Present Illness 61-year-old white male with history of prostate cancer status post surgery, smoking, he drinks vodka, he developed nausea, vomiting and diarrhea for the last 3 days and was unable to eat or drink and came in with these complaints with some abdominal pain as well, his baseline creatinine was 1.14 in September and now came with Creatinine above 6. Additional Remarks Patient is alert, no SOB, no abd. pain now, to start the diet. Review of Systems General Constitutional: Fatigue Gastrointestinal Gastrointestinal: Abdominal Pain, Nausea & Vomiting Objective Data Data Vital Signs Date Time Temp Pulse Resp B/P (MAP) Pulse Ox O2 Delivery O2 Flow Rate FiO2 06/15/17 11:02 98.4 06/15/17 06:00 81 06/15/17 04:00 87 06/15/17 03:19 96 Nasal Cannula 1.50 06/15/17 02:00 80 06/15/17 00:00 90 06/14/17 22:30 89 103/61 06/14/17 22:00 89 06/14/17 21:30 92 115/64 06/14/17 21:20 93 119/64 06/14/17 20:11 89 113/58 06/14/17 20:00 72 06/14/17 20:00 Nasal Cannula 2.00 06/14/17 20:00 93 120/73 06/14/17 18:00 89 06/14/17 16:00 69 06/14/17 14:00 70 06/14/17 13:30 78 80/51 -: 06/15/17 0825 06/15/17 0825 Microbiology 06/14/17 Urine Culture, Received Pending Physical Exam General Appearance: Well Nourished, No Acute Distress, Comfortable Eyes Eye Exam: Pupils Equal Neck Neck Exam: Neck Supple Pulmonary Resp Exam: Clear Bilaterally, Breath Sounds Equal, No Distress, Sputum Cardiology CV Exam: Regular, Normal Sinus Rhythm Gastrointestinal/Abdomen GI Exam: Soft, Non-Tender, Bowel Sounds Present Extremeties Extremities Exam: Trace Edema Neurologic Neuro Exam: Alert, Awake, Oriented Psychiatric Psych Exam: Appropriate Responses Assessment/Plan Problem List: (1) ARNOLD (acute kidney injury) ICD Codes: N17.9 - Acute kidney failure, unspecified Status: Acute Plan: Patient has chronic kidney disease and now develop ARNOLD. Most Likely developed acute tubular necrosis due to hypotension. Urine out put increase with IV Bumex infusion. Creatinine increase to 6.8. K and Hco3 normal. Decrease Bumex infusion,. D/W Dr. Shanks. Follow the urine out put and BMP. HD if needed. (2) Acute hyponatremia ICD Codes: E87.1 - Hypo-osmolality and hyponatremia Status: Acute Plan: Due to nausea vomiting and dehydration (3) Nausea and vomiting ICD Codes: R11.2 - Nausea with vomiting, unspecified Status: Acute Plan: GI source (4) Diabetes mellitus ICD Codes: E11.9 - Diabetes mellitus Status: Chronic Plan: Monitor blood glucose Problem Qualifiers (1) Nausea and vomiting: (2) Diabetes mellitus: Alice Buck MD Jun 15, 2017 12:58
[2017-06-15] MEDS: MULTIVITAMIN INJ 10 ML, THIAMINE INJ 100 MG, FOLIC ACID INJ 1 MG in SODIUM CHLORID 0.9%... IV SCH (15:38)
[2017-06-16] VITALS (15 sets, daily range): BP systolic 59–96; BP diastolic 34–61; PULSE 64–107; RESP 17–31; TEMP 97.9–98.5; O2SAT 91–96
[2017-06-16] MEDS: INSULIN ASPART SUPPLEMENTAL SCALE SQ SCH ×5 (05:00→21:00)
[2017-06-16] MEDS: PIPERACIL-TAZO 2.25 GM PREMIX 50 ML IV SCH ×2 (06:16→12:53)
[2017-06-16 06:36] LABS: AUTOMATED NEUTROPHIL # 7.6 TH/MM3 (1.8-7.7); BASOPHIL % 0.1 % (0.0-2.0); EOSINOPHIL % 0.4 % (0.0-4.0); LYMPH % 10.4 % (9.0-44.0); MEAN CORPUSCULAR HEMOGLOBIN 36.1 PG (27.0-34.0); MEAN CORPUSCULAR HGB CONC 35.8 % (32.0-36.0); NEUT % 82.1 % (16.0-70.0); PLATELET COUNT 50 TH/MM3 (150-450); RED BLOOD COUNT 3.86 MIL/MM3 (4.50-5.90); RED CELL DISTRIBUTION WIDTH 12.8 % (11.6-17.2); WHITE BLOOD COUNT 9.3 TH/MM3 (4.0-11.0)
[2017-06-16 06:43] LABS: HEMO FLAGS AUTO DIFF
[2017-06-16 07:01] LABS: ANION GAP 13 MEQ/L (5-15)
[2017-06-16 07:03] LABS: ALKALINE PHOSPHATASE 61 U/L (45-117); ALT (GPT) 65 U/L (12-78); AST (GOT) 28 U/L (15-37); BICARBONATE 24.8 MEQ/L (21.0-32.0); BLOOD UREA NITROGEN 58 MG/DL (7-18); CHLORIDE 97 MEQ/L (98-107); GLOMERULAR FILTRATION RATE 9 ML/MIN (>89); MAGNESIUM 1.2 MG/DL (1.5-2.5); SODIUM (NA) 135 MEQ/L (136-145); TOTAL BILIRUBIN ADULT 0.9 MG/DL (0.2-1.0)
[2017-06-16 07:08] LABS: POTASSIUM 2.7 MEQ/L (3.5-5.1)
[2017-06-16 08:08] LABS: PLATELET ESTIMATE SMEAR LOW (NORMAL); PLATELET MORPHOLOGY NORMAL (NORMAL); SCAN/DIFF AUTO DIFF CONFIRMED
[2017-06-16] MEDS ORDERED: POTASSIUM CHLOR 20 MEQ PREMIX 100 ML IV ONE (08:30)
[2017-06-16] MEDS ORDERED: POTASSIUM BICARBONATE 25 MEQ EFFERVESCENT TAB PO ONE (08:30)
[2017-06-16] MEDS ORDERED: MAGNESIUM SULFATE 1 GM PREMIX 100 ML IV ONE (13:00)
[2017-06-16] MEDS ORDERED: PHENYLEPHRINE 40 MG in D5W 500 ML IV PRN (13:00)
--- NOTE | 2017-06-16 14:31 | HHI.NPPN ---
Subjective History of Present Illness 61-year-old white male with history of prostate cancer status post surgery, smoking, he drinks vodka, he developed nausea, vomiting and diarrhea for the last 3 days and was unable to eat or drink and came in with these complaints with some abdominal pain as well, his baseline creatinine was 1.14 in September and now came with Creatinine above 6. Additional Remarks Patient is alert, no SOB, no nausea, feeling better. Review of Systems General Constitutional: Fatigue Gastrointestinal Gastrointestinal: Abdominal Pain, Nausea & Vomiting Objective Data Data Vital Signs Date Time Temp Pulse Resp B/P (MAP) Pulse Ox O2 Delivery O2 Flow Rate FiO2 06/16/17 08:00 97.9 06/16/17 08:00 Nasal Cannula 2.00 06/16/17 07:55 92 Nasal Cannula 2.00 06/16/17 06:00 69 06/16/17 04:00 98.1 64 20 85/57 (66) 94 06/16/17 04:00 64 06/16/17 02:00 71 06/16/17 00:00 97.9 74 20 96/55 (69) 96 06/16/17 00:00 74 06/15/17 22:48 96 Nasal Cannula 2.00 06/15/17 22:00 86 06/15/17 20:00 79 06/15/17 20:00 97.6 79 21 99/67 (78) 96 06/15/17 19:00 Nasal Cannula 2.00 -: 06/16/17 0533 06/16/17 0533 Physical Exam General Appearance: Well Nourished, No Acute Distress, Comfortable Eyes Eye Exam: Pupils Equal Neck Neck Exam: Neck Supple Pulmonary Resp Exam: Clear Bilaterally, Breath Sounds Equal, No Distress, Sputum Cardiology CV Exam: Regular, Normal Sinus Rhythm Gastrointestinal/Abdomen GI Exam: Soft, Non-Tender, Bowel Sounds Present Extremeties Extremities Exam: Trace Edema Neurologic Neuro Exam: Alert, Awake, Oriented Psychiatric Psych Exam: Appropriate Responses Assessment/Plan Problem List: (1) ARNOLD (acute kidney injury) ICD Codes: N17.9 - Acute kidney failure, unspecified Status: Acute Plan: Patient has chronic kidney disease and now develop ARNOLD. Most Likely developed acute tubular necrosis due to hypotension. Urine out put increase with IV Bumex infusion. Creatinine is now 6.3. K and Mg both low and replaced. Continue Bumex infusion, D/W Dr. Shanks. Follow the urine out put and BMP. No urgent need for HD. Dr. Alcaraz will follow from AM. (2) Acute hyponatremia ICD Codes: E87.1 - Hypo-osmolality and hyponatremia Status: Acute Plan: Due to nausea vomiting and dehydration (3) Nausea and vomiting ICD Codes: R11.2 - Nausea with vomiting, unspecified Status: Acute Plan: GI source (4) Diabetes mellitus ICD Codes: E11.9 - Diabetes mellitus Status: Chronic Plan: Monitor blood glucose Problem Qualifiers (1) Nausea and vomiting: (2) Diabetes mellitus: Alice Buck MD Jun 16, 2017 14:31
[2017-06-16] MEDS ORDERED: BUMETANIDE INJ 100 ML IV SCH (15:00)
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
[2017-06-16] MEDS: MULTIVITAMIN INJ 10 ML, THIAMINE INJ 100 MG, FOLIC ACID INJ 1 MG in SODIUM CHLORID 0.9%... IV SCH (16:46)
[2017-06-16] MEDS ORDERED: ALBUMIN 25% INJ 100 ML IV ONE (18:15)
[2017-06-17] VITALS (30 sets, daily range): BP systolic 82–111; BP diastolic 55–70; PULSE 64–103; RESP 16–37; TEMP 97.6–98.8; O2SAT 90–99
[2017-06-17] MEDS: INSULIN ASPART SUPPLEMENTAL SCALE SQ SCH ×6 (01:00→19:46)
[2017-06-17 07:52] LABS: ALKALINE PHOSPHATASE 70 U/L (45-117); ALT (GPT) 67 U/L (12-78); ANION GAP 11 MEQ/L (5-15); AST (GOT) 45 U/L (15-37); BLOOD UREA NITROGEN 60 MG/DL (7-18); CHLORIDE 94 MEQ/L (98-107); GLOMERULAR FILTRATION RATE 12 ML/MIN (>89); SODIUM (NA) 135 MEQ/L (136-145); TOTAL BILIRUBIN ADULT 0.9 MG/DL (0.2-1.0)
[2017-06-17 08:02] LABS: POTASSIUM 2.8 MEQ/L (3.5-5.1)
[2017-06-17] MEDS ORDERED: POTASSIUM CHLOR 10 MEQ PREMIX 100 ML IV SCH (08:15)
[2017-06-17] MEDS ORDERED: MAGNESIUM SULFATE 4 GM PREMIX 100 ML IV ONE (08:15)
[2017-06-17 09:21] LABS: BICARBONATE 28.2 MEQ/L (21.0-32.0)
[2017-06-17 09:52] LABS: POTASSIUM 2.7 MEQ/L (3.5-5.1)
[2017-06-17] MEDS ORDERED: ICU - MAGNESIUM SULFATE 4 GM/NS 100 ML IV ONE ×2 (10:00)
[2017-06-17] MEDS ORDERED: SODIUM CHLOR 0.9% IV ONE (10:00)
[2017-06-17] MEDS ORDERED: POTASSIUM CHLORIDE IV ONE (10:00)
--- NOTE | 2017-06-17 10:16 | HHI.NPPN ---
Subjective History of Present Illness 61-year-old white male with history of prostate cancer status post surgery, smoking, he drinks vodka, he developed nausea, vomiting and diarrhea for the last 3 days and was unable to eat or drink and came in with these complaints with some abdominal pain as well, his baseline creatinine was 1.14 in September and now came with Creatinine above 6. Additional Remarks Patient is alert, no SOB, no nausea, feeling better. Review of Systems General Constitutional: Fatigue Gastrointestinal Gastrointestinal: Abdominal Pain, Nausea & Vomiting Objective Data Data 06/17/17 06/18/17 19:00 07:00 Intake Total 500 ml Balance 500 ml IV Total 500 ml Vital Signs Date Time Temp Pulse Resp B/P (MAP) Pulse Ox O2 Delivery O2 Flow Rate FiO2 06/17/17 06:00 70 06/17/17 04:00 83 06/17/17 04:00 98.7 83 32 90/58 (69) 95 06/17/17 02:00 67 06/17/17 00:00 75 06/17/17 00:00 98.8 75 18 89/55 (66) 95 06/16/17 22:00 71 06/16/17 20:00 74 06/16/17 20:00 98.5 74 19 90/61 (71) 92 06/16/17 19:00 Nasal Cannula 2.00 06/16/17 18:15 106 30 86/58 (67) 91 06/16/17 18:01 105 31 84/57 (66) 95 06/16/17 18:00 107 30 95 06/16/17 17:53 86 30 70/47 (55) 95 06/16/17 17:45 73 18 59/34 (42) 94 06/16/17 17:30 78 18 78/53 (61) 95 06/16/17 17:15 70 17 84/55 (65) 95 -: 06/16/17 0533 06/17/17 0825 Physical Exam General Appearance: Well Nourished, No Acute Distress, Comfortable Eyes Eye Exam: Pupils Equal Neck Neck Exam: Neck Supple Pulmonary Resp Exam: Clear Bilaterally, Breath Sounds Equal, No Distress, Sputum Cardiology CV Exam: Regular, Normal Sinus Rhythm Gastrointestinal/Abdomen GI Exam: Soft, Non-Tender, Bowel Sounds Present Extremeties Extremities Exam: Trace Edema Neurologic Neuro Exam: Alert, Awake, Oriented Psychiatric Psych Exam: Appropriate Responses Assessment/Plan Problem List: (1) ARNOLD (acute kidney injury) ICD Codes: N17.9 - Acute kidney failure, unspecified Status: Acute Plan: Patient has chronic kidney disease and now develop ARNOLD. Most Likely developed acute tubular necrosis due to hypotension. Urine out put increase Bumex stopped K low refuse IV Kcl as burning give KCL 32 meq PO Q 6 Check Mg ARF resolving (2) Acute hyponatremia ICD Codes: E87.1 - Hypo-osmolality and hyponatremia Status: Acute Plan: Due to nausea vomiting and dehydration (3) Nausea and vomiting ICD Codes: R11.2 - Nausea with vomiting, unspecified Status: Acute Plan: GI source (4) Diabetes mellitus ICD Codes: E11.9 - Diabetes mellitus Status: Chronic Plan: Monitor blood glucose Problem Qualifiers (1) Nausea and vomiting: (2) Diabetes mellitus: Nereida Alcaraz MD Jun 17, 2017 10:16
[2017-06-17] MEDS ORDERED: POTASSIUM CHLOR 20 MEQ PREMIX 100 ML ONE (13:35)
[2017-06-17] MEDS: POTASSIUM CHLORIDE 8 MEQ CONTROLLED RELEASE TAB PO SCH ×2 (13:41→17:09)
[2017-06-17] MEDS: LORazepam 2 MG/ML VIAL IV PUSH PRN (14:04)
[2017-06-17] MEDS: MULTIVITAMIN INJ 10 ML, THIAMINE INJ 100 MG, FOLIC ACID INJ 1 MG in SODIUM CHLORID 0.9%... IV SCH (16:12)
[2017-06-17] MEDS: POTASSIUM CHLOR 20 MEQ PREMIX 100 ML IV SCH ×3 (16:12→21:12)
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
[2017-06-18] VITALS (9 sets, daily range): BP systolic 106–121; BP diastolic 64–75; PULSE 68–100; RESP 18–20; TEMP 97.7–98.6; O2SAT 92–100
[2017-06-18] MEDS: INSULIN ASPART SUPPLEMENTAL SCALE SQ SCH ×3 (01:00→09:00)
[2017-06-18] MEDS: POTASSIUM CHLORIDE 8 MEQ CONTROLLED RELEASE TAB PO SCH ×4 (01:01→20:23)
[2017-06-18] MEDS: POTASSIUM CHLOR 20 MEQ PREMIX 100 ML IV SCH ×2 (01:02→03:00)
[2017-06-18 10:02] LABS: HEMATOCRIT 41.5 % (39.0-51.0); MEAN CELL VOLUME 102.1 FL (80.0-100.0); MEAN CORPUSCULAR HEMOGLOBIN 36.3 PG (27.0-34.0); MEAN CORPUSCULAR HGB CONC 35.6 % (32.0-36.0); PLATELET COUNT 95 TH/MM3 (150-450); RED BLOOD COUNT 4.07 MIL/MM3 (4.50-5.90)
--- NOTE | 2017-06-18 10:02 | HHI.PR ---
Subjective Remarks good po, no nausea or vomiting feeling stronger lazcano in place- fgood urine output Objective Vitals Vital Signs Date Time Temp Pulse Resp B/P (MAP) Pulse Ox O2 Delivery O2 Flow Rate FiO2 06/18/17 07:55 98.6 68 20 108/64 (79) 97 06/18/17 06:00 75 06/18/17 05:09 98.0 70 20 108/64 (79) 92 06/18/17 02:21 Nasal Cannula 2.00 06/18/17 01:02 98.0 74 20 121/71 (88) 98 06/17/17 22:00 82 06/17/17 20:00 98.7 76 29 111/68 (82) 99 06/17/17 20:00 76 06/17/17 19:00 Nasal Cannula 2.00 06/17/17 18:00 88 06/17/17 16:15 74 17 82/58 (66) 97 06/17/17 16:15 74 06/17/17 16:01 73 06/17/17 16:01 73 30 96/59 (71) 97 06/17/17 16:00 73 17 97 06/17/17 16:00 73 06/17/17 16:00 98.6 06/17/17 14:15 70 17 102/60 (74) 95 06/17/17 14:15 70 06/17/17 14:10 96 06/17/17 14:10 96 31 93/66 (75) 90 06/17/17 14:00 79 19 94/65 (75) 93 06/17/17 14:00 79 06/17/17 13:45 89 06/17/17 13:45 89 28 92/62 (72) 93 06/17/17 13:30 95 23 91/60 (70) 93 06/17/17 13:30 95 06/17/17 13:22 84 06/17/17 13:22 84 27 90/60 (70) 93 06/17/17 13:21 85 25 86/56 (66) 92 06/17/17 13:21 85 06/17/17 13:15 85 06/17/17 13:15 85 37 89/64 (72) 90 06/17/17 13:00 101 06/17/17 13:00 101 30 93 06/17/17 12:00 86 06/17/17 12:00 86 24 94 06/17/17 12:00 98.0 06/17/17 11:00 90 06/17/17 11:00 90 28 93 I/O 06/17/17 06/17/17 06/17/17 06/18/17 06/18/17 06/18/17 07:00 15:00 23:00 07:00 15:00 23:00 Intake Total 130 ml 600 ml 2380 ml Output Total 1500 ml 1700 ml 500 ml Balance -1370 ml 600 ml 680 ml -500 ml Intake Oral 1680 ml IV Total 130 ml 600 ml 700 ml Output Urine Total 1500 ml 1700 ml 500 ml # Bowel Movements 0 Result Diagram: 06/16/17 0533 06/17/17 0825 Imaging Last Impressions Chest X-Ray 06/14/17 1021 Signed Impressions: Service Date/Time: Wednesday, June 14, 2017 10:36 - CONCLUSION: No acute cardiopulmonary abnormality is identified. Dimitris Faye MD Abdomen/Pelvis CT 06/14/17 1021 Signed Impressions: Service Date/Time: Wednesday, June 14, 2017 11:40 - CONCLUSION: 1. No acute abnormality. 2. Hepatic steatosis. Cory Macias Jr., MD Objective Remarks awake and alert, NAD anicteric lungs no rales regular rhythm abdomen soft, nontender, no CVA tenderness extremities no edema gait steady Urinary Catheter: Yes Assessment to: Continue Lazcano insert reason: Measure Accurate Output Date of Insertion: Jun 14, 2017 A/P Problem List: (1) Septic shock ICD Code: A41.9 - Sepsis, unspecified organism; R65.21 - Severe sepsis with septic shock (2) Acute kidney failure ICD Code: N17.9 - Acute kidney failure, unspecified (3) Severe dehydration ICD Code: E86.0 - Dehydration (4) Acute hyponatremia ICD Code: E87.1 - Hypo-osmolality and hyponatremia Status: Acute (5) Nausea and vomiting ICD Code: R11.2 - Nausea with vomiting, unspecified Status: Acute (6) Leukocytosis ICD Code: D72.829 - Elevated white blood cell count, unspecified Status: Acute (7) Diabetes mellitus ICD Code: E11.9 - Diabetes mellitus Status: Chronic Assessment and Plan 61 years old male Alcohol dependence - Watch for alcohol withdrawal, CIWA protocol - Supplement multivitamin thiamine folic acid RESP: Tobacco abuse - Nasal cannula oxygen - DuoNeb every 6 hours when necessary CV: Shock, hypovolemic - resolved. - Received total 5 L normal saline boluses GI: Hypokalemia- improved - repeat K- 4. Hypomagnesemia - C diff negative. Famotidine for GI prophylaxis, Zofran for nausea and vomiting - ADA renal diet -- decrease KCL to bid BMP in am -continue IVF at rate of 70 cc/hr : Acute kidney failure - resolving- non oliguric. - Monitor renal function closely. Lazcano catheter. Acute renal failure workup per Dr. Alcaraz - Total 6L IV boluses with no UO. Diuresis started with Bumex 1 mg /hr, reduced 0.5 mg per hour 06/15/17, stopped today for hypokalemia. - Total 7 L UO since last 24 hours. - D/W Dr. Buck. No HD recommended. Creatinine improving. - ff BMP - check voiding soon ID: Shock-resolved - Received vancomycin and Zosyn in the ED, on Zosyn renally dosed. - Blood urine culture neg to date. DC Zosyn and observe. no evidence of ongoing infection. - not on any antibiotics - recheck UA HEME: Leukocytosis -resolved Thrombocytopenia - Monitor CBC, CMP, coags - Thrombocytopenia be secondary to alcohol abuse, sepsis. ENDO: Type 2 diabetes Hyperglycemia - Monitor for hyperkalemia - Sliding-scale insulin - as OP was on Metformin- d/w him - discontinued - check A1C - start Insulin long acting hs PROPH: - Bilateral lower extremity SCDs. Heparin 5000 units sq [id number] due to thrombocytopenia LINES: - Utilize peripheral IVs, femoral central line placed in the ED dcd patient has been up and ambulating- encourage Problem Qualifiers (1) Acute kidney failure: Qualified Codes: N17.9 - Acute kidney failure, unspecified (2) Nausea and vomiting: (3) Leukocytosis: Qualified Codes: D72.829 - Elevated white blood cell count, unspecified (4) Diabetes mellitus: Kodak Garcia MD Jun 18, 2017 10:02
[2017-06-18 10:10] LABS: REVIEW FLAG FINAL
[2017-06-18 11:14] LABS: BICARBONATE 26.6 MEQ/L (21.0-32.0); POTASSIUM 4.3 MEQ/L (3.5-5.1)
--- NOTE | 2017-06-18 11:50 | HHI.NPPN ---
Subjective History of Present Illness 61-year-old white male with history of prostate cancer status post surgery, smoking, he drinks vodka, he developed nausea, vomiting and diarrhea for the last 3 days and was unable to eat or drink and came in with these complaints with some abdominal pain as well, his baseline creatinine was 1.14 in September and now came with Creatinine above 6. Additional Remarks Patient is alert, no SOB, no nausea, feeling better. Review of Systems General Constitutional: Fatigue Gastrointestinal Gastrointestinal: Abdominal Pain, Nausea & Vomiting Objective Data Data Vital Signs Date Time Temp Pulse Resp B/P (MAP) Pulse Ox O2 Delivery O2 Flow Rate FiO2 06/18/17 10:00 Room Air 06/18/17 09:00 72 06/18/17 07:55 98.6 68 20 108/64 (79) 97 06/18/17 06:00 75 06/18/17 05:09 98.0 70 20 108/64 (79) 92 06/18/17 02:21 Nasal Cannula 2.00 06/18/17 01:02 98.0 74 20 121/71 (88) 98 06/17/17 22:00 82 06/17/17 20:00 98.7 76 29 111/68 (82) 99 06/17/17 20:00 76 06/17/17 19:00 Nasal Cannula 2.00 06/17/17 18:00 88 06/17/17 16:15 74 17 82/58 (66) 97 06/17/17 16:15 74 06/17/17 16:01 73 06/17/17 16:01 73 30 96/59 (71) 97 06/17/17 16:00 73 17 97 06/17/17 16:00 73 06/17/17 16:00 98.6 06/17/17 14:15 70 17 102/60 (74) 95 06/17/17 14:15 70 06/17/17 14:10 96 06/17/17 14:10 96 31 93/66 (75) 90 06/17/17 14:00 79 19 94/65 (75) 93 06/17/17 14:00 79 06/17/17 13:45 89 06/17/17 13:45 89 28 92/62 (72) 93 06/17/17 13:30 95 23 91/60 (70) 93 06/17/17 13:30 95 06/17/17 13:22 84 06/17/17 13:22 84 27 90/60 (70) 93 06/17/17 13:21 85 25 86/56 (66) 92 06/17/17 13:21 85 06/17/17 13:15 85 06/17/17 13:15 85 37 89/64 (72) 90 06/17/17 13:00 101 06/17/17 13:00 101 30 93 06/17/17 12:00 86 06/17/17 12:00 86 24 94 06/17/17 12:00 98.0 -: 06/18/17 0908 06/18/17 0908 Physical Exam General Appearance: Well Nourished, No Acute Distress, Comfortable Eyes Eye Exam: Pupils Equal Neck Neck Exam: Neck Supple Pulmonary Resp Exam: Clear Bilaterally, Breath Sounds Equal, No Distress, Sputum Cardiology CV Exam: Regular, Normal Sinus Rhythm Gastrointestinal/Abdomen GI Exam: Soft, Non-Tender, Bowel Sounds Present Extremeties Extremities Exam: Trace Edema Neurologic Neuro Exam: Alert, Awake, Oriented Psychiatric Psych Exam: Appropriate Responses Assessment/Plan Problem List: (1) ARNOLD (acute kidney injury) ICD Codes: N17.9 - Acute kidney failure, unspecified Status: Acute Plan: Patient has chronic kidney disease and now develop ARNOLD. Most Likely developed acute tubular necrosis due to hypotension. Urine out put increase Bumex stopped K corrected noted change in dose KCL 32 meq PO bid ARF resolving remove Mercado catheter (2) Acute hyponatremia ICD Codes: E87.1 - Hypo-osmolality and hyponatremia Status: Acute Plan: Due to nausea vomiting and dehydration (3) Nausea and vomiting ICD Codes: R11.2 - Nausea with vomiting, unspecified Status: Acute Plan: GI source (4) Diabetes mellitus ICD Codes: E11.9 - Diabetes mellitus Status: Chronic Plan: Monitor blood glucose Problem Qualifiers (1) Nausea and vomiting: (2) Diabetes mellitus: Nereida Alcaraz MD Jun 18, 2017 11:50
[2017-06-18] MEDS: INSULIN NovoLIN REGULAR SUPPLEMENTAL SCALE SQ SCH ×3 (12:00→20:29)
[2017-06-18] MEDS: SODIUM CHLOR 0.9% 1000 ML INJ 1,000 ML IV SCH (12:48)
[2017-06-18] MEDS: MULTIVITAMIN INJ 10 ML, THIAMINE INJ 100 MG, FOLIC ACID INJ 1 MG in SODIUM CHLORID 0.9%... IV SCH (14:23)
[2017-06-18] MEDS: traMADol HCL 50 MG TAB PO PRN (16:10)
[2017-06-18] MEDS ORDERED: POTASSIUM PHOSPHATE/SODIUM PHOSPHATE 250 MG TAB PO ONE (18:00)
[2017-06-19] VITALS (7 sets, daily range): BP systolic 102–120; BP diastolic 63–75; PULSE 57–90; RESP 16–20; TEMP 97.3–98.2; O2SAT 73–99
[2017-06-19] MEDS: traMADol HCL 50 MG TAB PO PRN ×4 (00:50→22:21)
[2017-06-19] MEDS: TEMAZEPAM 7.5 MG CAP PO PRN (00:50)
[2017-06-19] MEDS: SODIUM CHLOR 0.9% 1000 ML INJ 1,000 ML IV SCH (01:48)
[2017-06-19 05:02] LABS: HEMATOCRIT 33.4 % (39.0-51.0); MEAN CELL VOLUME 102.5 FL (80.0-100.0); MEAN CORPUSCULAR HEMOGLOBIN 37.2 PG (27.0-34.0); PLATELET COUNT 102 TH/MM3 (150-450); RED BLOOD COUNT 3.26 MIL/MM3 (4.50-5.90); RED CELL DISTRIBUTION WIDTH 12.7 % (11.6-17.2); WHITE BLOOD COUNT 7.9 TH/MM3 (4.0-11.0)
[2017-06-19 05:26] LABS: ANION GAP 7 MEQ/L (5-15); BICARBONATE 23.2 MEQ/L (21.0-32.0); BLOOD UREA NITROGEN 36 MG/DL (7-18); CHLORIDE 110 MEQ/L (98-107); GLOMERULAR FILTRATION RATE 31 ML/MIN (>89); POTASSIUM 3.9 MEQ/L (3.5-5.1); SODIUM (NA) 140 MEQ/L (136-145)
[2017-06-19 05:32] LABS: MEAN CORPUSCULAR HGB CONC 36.3 % (32.0-36.0); REVIEW FLAG FINAL
[2017-06-19] MEDS: POTASSIUM CHLORIDE 8 MEQ CONTROLLED RELEASE TAB PO SCH ×2 (09:19→22:21)
[2017-06-19] MEDS: INSULIN NovoLIN REGULAR SUPPLEMENTAL SCALE SQ SCH ×4 (09:20→22:28)
[2017-06-19 10:36] LABS: HEMOGLOBIN A1a 1.1 %; HEMOGLOBIN Ao 81.5 %; HEMOGLOBIN LA1C 2.8 %
--- NOTE | 2017-06-19 11:57 | HHI.PR ---
Subjective Remarks feeling better voiding spontaneously well no nausea or vomiting Objective Vitals Vital Signs Date Time Temp Pulse Resp B/P (MAP) Pulse Ox O2 Delivery O2 Flow Rate FiO2 06/19/17 11:12 57 06/19/17 08:00 97.3 90 16 108/72 (84) 97 06/19/17 04:00 98.2 84 18 102/63 (76) 95 06/19/17 00:00 98.1 75 20 110/73 (85) 99 06/18/17 21:29 100 06/18/17 20:00 97.8 74 18 119/68 (85) 100 06/18/17 16:21 98.2 78 20 106/64 (78) 98 06/18/17 12:19 97.7 90 20 119/75 (90) 100 I/O 06/18/17 06/18/17 06/18/17 06/19/17 06/19/17 06/19/17 07:00 15:00 23:00 07:00 15:00 23:00 Intake Total 480 ml 861 ml Output Total 500 ml 300 ml Balance -500 ml 480 ml 561 ml Intake Oral 480 ml IV Total 861 ml Output Urine Total 500 ml 300 ml # Voids 2 1 # Bowel Movements 0 0 Result Diagram: 06/19/17 0456 06/19/17 0456 Imaging Last Impressions Chest X-Ray 06/14/17 1021 Signed Impressions: Service Date/Time: Wednesday, June 14, 2017 10:36 - CONCLUSION: No acute cardiopulmonary abnormality is identified. Dimitris Faye MD Abdomen/Pelvis CT 06/14/17 1021 Signed Impressions: Service Date/Time: Wednesday, June 14, 2017 11:40 - CONCLUSION: 1. No acute abnormality. 2. Hepatic steatosis. Cory Macias Jr., MD Objective Remarks awake and alert, NAD anicteric lungs no rales regular rhythm abdomen soft, nontender, no CVA tenderness extremities no edema gait steady Date of Insertion: Jun 14, 2017 Date of Removal: Jun 18, 2017 A/P Problem List: (1) Septic shock ICD Code: A41.9 - Sepsis, unspecified organism; R65.21 - Severe sepsis with septic shock (2) Acute kidney failure ICD Code: N17.9 - Acute kidney failure, unspecified (3) Severe dehydration ICD Code: E86.0 - Dehydration (4) Acute hyponatremia ICD Code: E87.1 - Hypo-osmolality and hyponatremia Status: Acute (5) Nausea and vomiting ICD Code: R11.2 - Nausea with vomiting, unspecified Status: Acute (6) Leukocytosis ICD Code: D72.829 - Elevated white blood cell count, unspecified Status: Acute (7) Diabetes mellitus ICD Code: E11.9 - Diabetes mellitus Status: Chronic Assessment and Plan 61 years old male Alcohol dependence- counselled - Watch for alcohol withdrawal, CIWA protocol - Supplement multivitamin thiamine folic acid RESP: Tobacco abuse - counselled CV: Shock, hypovolemic - resolved. - Received total 5 L normal saline boluses GI: Hypokalemia- improved - repeat K- 4. Hypomagnesemia HYpophosphatemia- improved - C diff negative. Famotidine for GI prophylaxis, Zofran for nausea and vomiting - ADA renal diet - po KCL to bid. on Kphos : Acute kidney failure - resolving- non oliguric. - Monitor renal function closely. Mercado catheter. Acute renal failure workup per Dr. Alcaraz - Total 6L IV boluses with no UO. Diuresis started with Bumex 1 mg /hr, reduced 0.5 mg per hour 06/15/17, stopped today for hypokalemia. - Total 7 L UO since last 24 hours. - D/W Dr. Buck. No HD recommended. Creatinine improving. - ff BMP ID: Shock-resolved - Received vancomycin and Zosyn in the ED, on Zosyn renally dosed. - Blood urine culture neg to date. DC Zosyn and observe. no evidence of ongoing infection. - not on any antibiotics - recheck UA HEME: Leukocytosis -resolved Thrombocytopenia - Monitor CBC, CMP, coags - Thrombocytopenia be secondary to alcohol abuse, sepsis. ENDO: Type 2 diabetes Hyperglycemia - Monitor for hyperkalemia - Sliding-scale insulin - as OP was on Metformin- d/w him - discontinued - check A1C- pending - consider HS insulin PROPH: - Bilateral lower extremity SCDs. Heparin 5000 units sq [id number] due to thrombocytopenia LINES: - Utilize peripheral IVs, femoral central line placed in the ED dcd patient has been up and ambulating- encourage PT/OT consult Problem Qualifiers (1) Acute kidney failure: Qualified Codes: N17.9 - Acute kidney failure, unspecified (2) Nausea and vomiting: (3) Leukocytosis: Qualified Codes: D72.829 - Elevated white blood cell count, unspecified (4) Diabetes mellitus: Kodak Garcia MD Jun 19, 2017 11:57
--- NOTE | 2017-06-19 13:55 | HHI.NPPN ---
Subjective History of Present Illness 61-year-old white male with history of prostate cancer status post surgery, smoking, he drinks vodka, he developed nausea, vomiting and diarrhea for the last 3 days and was unable to eat or drink and came in with these complaints with some abdominal pain as well, his baseline creatinine was 1.14 in September and now came with Creatinine above 6. Additional Remarks Patient is alert, no SOB, no nausea, feeling better. Review of Systems General Constitutional: Fatigue Gastrointestinal Gastrointestinal: Abdominal Pain, Nausea & Vomiting Objective Data Data Vital Signs Date Time Temp Pulse Resp B/P (MAP) Pulse Ox O2 Delivery O2 Flow Rate FiO2 06/19/17 11:12 57 06/19/17 08:00 97.3 90 16 108/72 (84) 97 06/19/17 04:00 98.2 84 18 102/63 (76) 95 06/19/17 00:00 98.1 75 20 110/73 (85) 99 06/18/17 21:29 100 06/18/17 20:00 97.8 74 18 119/68 (85) 100 06/18/17 16:21 98.2 78 20 106/64 (78) 98 -: 06/19/17 0456 06/19/17 0456 Physical Exam General Appearance: Well Nourished, No Acute Distress, Comfortable Eyes Eye Exam: Pupils Equal Neck Neck Exam: Neck Supple Pulmonary Resp Exam: Clear Bilaterally, Breath Sounds Equal, No Distress, Sputum Cardiology CV Exam: Regular, Normal Sinus Rhythm Gastrointestinal/Abdomen GI Exam: Soft, Non-Tender, Bowel Sounds Present Extremeties Extremities Exam: Trace Edema Neurologic Neuro Exam: Alert, Awake, Oriented Psychiatric Psych Exam: Appropriate Responses Assessment/Plan Problem List: (1) ARNOLD (acute kidney injury) ICD Codes: N17.9 - Acute kidney failure, unspecified Status: Acute Plan: Patient has chronic kidney disease and now develop ARNOLD. Most Likely developed acute tubular necrosis due to hypotension. Urine out put increase Bumex stopped K corrected KCL 32 meq PO bid po4 normal ARF resolving Nephrology to follow PRN (2) Acute hyponatremia ICD Codes: E87.1 - Hypo-osmolality and hyponatremia Status: Acute Plan: Due to nausea vomiting and dehydration (3) Nausea and vomiting ICD Codes: R11.2 - Nausea with vomiting, unspecified Status: Acute Plan: GI source (4) Diabetes mellitus ICD Codes: E11.9 - Diabetes mellitus Status: Chronic Plan: Monitor blood glucose Problem Qualifiers (1) Nausea and vomiting: (2) Diabetes mellitus: Nereida Alcaraz MD Jun 19, 2017 13:55
[2017-06-20] VITALS: BP 116/66; PULSE 71; RESP 20; TEMP 98.3; O2SAT 98
[2017-06-20] MEDS: TEMAZEPAM 7.5 MG CAP PO PRN (00:57)
[2017-06-20] MEDS: SODIUM CHLOR 0.9% 1000 ML INJ 1,000 ML IV SCH ×3 (03:37→20:59)
[2017-06-20 04:00] VITALS: BP 113/82; PULSE 85; RESP 20; TEMP 97.3; O2SAT 97
[2017-06-20] MEDS: traMADol HCL 50 MG TAB PO PRN ×3 (04:32→21:01)
[2017-06-20 07:38] LABS: HEMATOCRIT 31.9 % (39.0-51.0); MEAN CELL VOLUME 102.1 FL (80.0-100.0); MEAN CORPUSCULAR HEMOGLOBIN 36.5 PG (27.0-34.0); MEAN CORPUSCULAR HGB CONC 35.7 % (32.0-36.0); PLATELET COUNT 138 TH/MM3 (150-450); RED BLOOD COUNT 3.13 MIL/MM3 (4.50-5.90); RED CELL DISTRIBUTION WIDTH 12.8 % (11.6-17.2); REVIEW FLAG FINAL; WHITE BLOOD COUNT 6.7 TH/MM3 (4.0-11.0)
[2017-06-20 08:00] VITALS: BP 102/66; PULSE 83; RESP 17; TEMP 97.7; O2SAT 97
[2017-06-20] MEDS: INSULIN NovoLIN REGULAR SUPPLEMENTAL SCALE SQ SCH ×4 (08:00→21:00)
[2017-06-20] MEDS: POTASSIUM CHLORIDE 8 MEQ CONTROLLED RELEASE TAB PO SCH ×2 (08:41→21:00)
[2017-06-20 08:59] LABS: BICARBONATE 21.4 MEQ/L (21.0-32.0); POTASSIUM 4.1 MEQ/L (3.5-5.1)
--- NOTE | 2017-06-20 11:43 | HHI.PR ---
Subjective Remarks complains of right shoulder- no paresthesias history of metal plate right forearm Objective Vitals Vital Signs Date Time Temp Pulse Resp B/P (MAP) Pulse Ox O2 Delivery O2 Flow Rate FiO2 06/20/17 08:00 97.7 83 17 102/66 (78) 97 06/20/17 04:00 97.3 85 20 113/82 (92) 97 06/20/17 00:00 98.3 71 20 116/66 (83) 98 06/19/17 20:00 98.2 89 20 105/75 (85) 93 06/19/17 16:00 97.9 74 16 120/73 (89) 99 06/19/17 12:00 97.9 67 16 109/67 (81) 96 I/O 06/19/17 06/19/17 06/19/17 06/20/17 06/20/17 06/20/17 06:59 14:59 22:59 06:59 14:59 22:59 Intake Total 1451 ml 750 ml Balance 1451 ml 750 ml IV Total 1451 ml 750 ml # Voids 1 2 # Bowel Movements 0 1 0 Result Diagram: 06/20/1719 06/20/1719 Imaging Last Impressions Chest X-Ray 06/14/17 1021 Signed Impressions: Service Date/Time: Wednesday, June 14, 2017 10:36 - CONCLUSION: No acute cardiopulmonary abnormality is identified. Dimitris Faye MD Abdomen/Pelvis CT 06/14/17 1021 Signed Impressions: Service Date/Time: Wednesday, June 14, 2017 11:40 - CONCLUSION: 1. No acute abnormality. 2. Hepatic steatosis. Cory Macias Jr., MD Objective Remarks awake and alert, NAD anicteric lungs no rales regular rhythm abdomen soft, nontender, no CVA tenderness right shoulder- no limited range of motion but complains of pain, no swelling no tenderness extremities no edema gait steady Date of Insertion: Jun 14, 2017 Date of Removal: Jun 18, 2017 A/P Problem List: (1) Septic shock ICD Code: A41.9 - Sepsis, unspecified organism; R65.21 - Severe sepsis with septic shock (2) Acute kidney failure ICD Code: N17.9 - Acute kidney failure, unspecified (3) Severe dehydration ICD Code: E86.0 - Dehydration (4) Acute hyponatremia ICD Code: E87.1 - Hypo-osmolality and hyponatremia Status: Acute (5) Nausea and vomiting ICD Code: R11.2 - Nausea with vomiting, unspecified Status: Acute (6) Leukocytosis ICD Code: D72.829 - Elevated white blood cell count, unspecified Status: Acute (7) Diabetes mellitus ICD Code: E11.9 - Diabetes mellitus Status: Chronic Assessment and Plan 61 years old male Alcohol dependence- counselled - Watch for alcohol withdrawal, CIWA protocol - Supplement multivitamin thiamine folic acid RESP: Tobacco abuse - counselled CV: Shock, hypovolemic - resolved. - Received total 5 L normal saline boluses GI: Hypokalemia- improved - repeat K- 4. Hypomagnesemia HYpophosphatemia- improved - C diff negative. Famotidine for GI prophylaxis, Zofran for nausea and vomiting - ADA renal diet - po KCL to bid. on Kphos : Acute kidney failure - resolving- non oliguric. - Monitor renal function closely. Mercado catheter. Acute renal failure workup per Dr. Alcaraz - Total 6L IV boluses with no UO. Diuresis started with Bumex 1 mg /hr, reduced 0.5 mg per hour 06/15/17, stopped today for hypokalemia. - Total 7 L UO since last 24 hours. - D/W Dr. Buck. No HD recommended. Creatinine improving. - ff BMP ID: Shock-resolved - Received vancomycin and Zosyn in the ED, on Zosyn renally dosed. - Blood urine culture neg to date. DC Zosyn and observe. no evidence of ongoing infection. - not on any antibiotics - recheck UA HEME: Leukocytosis -resolved Thrombocytopenia - Monitor CBC, CMP, coags - Thrombocytopenia be secondary to alcohol abuse, sepsis. ENDO: Type 2 diabetes Hyperglycemia - Monitor for hyperkalemia - Sliding-scale insulin - as OP was on Metformin- d/w him - discontinued - check A1C- pending - consider HS insulin Right shoulder pain -get CT. PT PROPH: - Bilateral lower extremity SCDs. Heparin 5000 units sq [id number] due to thrombocytopenia LINES: - Utilize peripheral IVs, femoral central line placed in the ED dcd patient has been up and ambulating- encourage PT/OT consult Problem Qualifiers (1) Acute kidney failure: Qualified Codes: N17.9 - Acute kidney failure, unspecified (2) Nausea and vomiting: (3) Leukocytosis: Qualified Codes: D72.829 - Elevated white blood cell count, unspecified (4) Diabetes mellitus: Kodak Garcia MD Jun 20, 2017 11:43
[2017-06-20 12:00] VITALS: BP 137/77; PULSE 70; RESP 17; TEMP 97.4; O2SAT 98
--- NOTE | 2017-06-20 14:13 | RADRPT ---
EXAM DATE/TIME: 06/20/2017 13:03 [place] COMPARISON: CHEST PA & LAT, October 09, 2016, 8:44. CHEST SINGLE AP, June 14, 2017, 10:36. INDICATIONS : Rotator cuff tear RADIATION DOSE: 12.19 CTDIvol (mGy) MEDICAL HISTORY : Hypertension. Carcinoma, prostate. Diabetes SURGICAL HISTORY : None. ENCOUNTER: Initial ACUITY: 1 day PAIN SCALE: 8/10 LOCATION: Right Shoulder TECHNIQUE: Volumetric scanning of the shoulder was performed. Using automated exposure control and adjustment o f the mA and/or kV according to patient size, radiation dose was kept as low as reasonably achievable to obtain optimal diagnostic quality images. DICOM format image data is available electronically f or review and comparison. FINDINGS: There is normal alignment of the glenohumeral joint and a.c. joint. Minor degenerative changes in th e a.c. joint. Surgical plate in the proximal shaft of the humerus. There is a fracture of the media l clavicular head with multiple thin fracture lucencies and mild displacement of the fragments. Soft tissues about the shoulder are grossly unremarkable for noncontrast CT technique. CONCLUSION: 1. Mildly comminuted fracture of the medial head of the clavicle. 2. No evidence of fracture dislocation of the glenohumeral joint. 3. No gross abnormality seen in the soft tissues about right shoulder, but noncontrasted CT is insens itive for rotator cuff abnormalities. Cory Clark MD on June 20, 2017 at 13:49 Board Certified Radiologist. This report was verified electronically.
[2017-06-20 16:00] VITALS: BP 125/71; PULSE 73; RESP 17; TEMP 98; O2SAT 98
[2017-06-20 21:00] VITALS: BP 116/61; PULSE 62; RESP 16; TEMP 98.6; O2SAT 97
[2017-06-21 00:30] VITALS: BP 120/64; PULSE 65; RESP 17; TEMP 98.8; O2SAT 97
[2017-06-21] MEDS: TEMAZEPAM 7.5 MG CAP PO PRN (01:38)
[2017-06-21 05:00] VITALS: BP 118/66; PULSE 74; RESP 19; TEMP 97; O2SAT 98
[2017-06-21 07:31] LABS: HEMATOCRIT 31.7 % (39.0-51.0); MEAN CORPUSCULAR HEMOGLOBIN 35.8 PG (27.0-34.0); PLATELET COUNT 192 TH/MM3 (150-450); RED BLOOD COUNT 3.11 MIL/MM3 (4.50-5.90); RED CELL DISTRIBUTION WIDTH 12.7 % (11.6-17.2); REVIEW FLAG FINAL; WHITE BLOOD COUNT 5.7 TH/MM3 (4.0-11.0)
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
[2017-06-21 07:49] LABS: BICARBONATE 22.6 MEQ/L (21.0-32.0); POTASSIUM 4.5 MEQ/L (3.5-5.1)
[2017-06-21] MEDS: INSULIN NovoLIN REGULAR SUPPLEMENTAL SCALE SQ SCH ×2 (08:00→12:00)
[2017-06-21] MEDS: traMADol HCL 50 MG TAB PO PRN ×2 (09:02→13:27)
[2017-06-21] MEDS: POTASSIUM CHLORIDE 8 MEQ CONTROLLED RELEASE TAB PO SCH (09:03)
[2017-06-21 09:25] VITALS: BP 141/67; PULSE 76; RESP 18; TEMP 97.8; O2SAT 97
[2017-06-21 13:15] VITALS: BP 120/70; PULSE 73; RESP 20; TEMP 98.2; O2SAT 98
--- NOTE | 2017-06-21 14:19 | HHI.PR ---
Subjective Remarks patient feels great no complains no pain Objective Vitals Vital Signs Date Time Temp Pulse Resp B/P (MAP) Pulse Ox O2 Delivery O2 Flow Rate FiO2 06/21/17 13:15 98.2 73 20 120/70 (87) 98 06/21/17 09:25 97.8 76 18 141/67 (91) 97 06/21/17 05:00 97.0 74 19 118/66 (83) 98 06/21/17 00:30 98.8 65 17 120/64 (82) 97 06/20/17 21:00 98.6 62 16 116/61 (79) 97 06/20/17 16:00 98.0 73 17 125/71 (89) 98 I/O 06/20/17 06/20/17 06/20/17 06/21/17 06/21/17 06/21/17 07:00 15:00 23:00 07:00 15:00 23:00 Intake Total 750 ml 800 ml 1500 ml Output Total 0 ml Balance 750 ml 800 ml 1500 ml Intake Oral 800 ml 1500 ml IV Total 750 ml Output Urine Total 0 ml # Voids 2 1 # Bowel Movements 0 0 0 Result Diagram: 06/21/17 0709 06/21/17 0709 Imaging Last Impressions Upper Extremity CT 06/20/17 0000 Signed Impressions: Service Date/Time: May 13:03 - CONCLUSION: 1. Mildly comminuted fracture of the medial head of the clavicle. 2. No evidence of fracture dislocation of the glenohumeral joint. 3. No gross abnormality seen in the soft tissues about right shoulder, but noncontrasted CT is insensitive for rotator cuff abnormalities. Cory Clark MD Chest X-Ray 06/14/17 1021 Signed Impressions: Service Date/Time: Wednesday, June 14, 2017 10:36 - CONCLUSION: No acute cardiopulmonary abnormality is identified. Dimitris Faye MD Abdomen/Pelvis CT 06/14/17 1021 Signed Impressions: Service Date/Time: Wednesday, June 14, 2017 11:40 - CONCLUSION: 1. No acute abnormality. 2. Hepatic steatosis. Cory Macias Jr., MD Objective Remarks awake and alert, NAD anicteric lungs no rales regular rhythm abdomen soft, nontender, no CVA tenderness right shoulder- better range of motion, no swelling extremities no edema gait steady Date of Insertion: Jun 14, 2017 Date of Removal: Jun 18, 2017 A/P Problem List: (1) Septic shock ICD Code: A41.9 - Sepsis, unspecified organism; R65.21 - Severe sepsis with septic shock (2) Acute kidney failure ICD Code: N17.9 - Acute kidney failure, unspecified (3) Severe dehydration ICD Code: E86.0 - Dehydration (4) Acute hyponatremia ICD Code: E87.1 - Hypo-osmolality and hyponatremia Status: Acute (5) Nausea and vomiting ICD Code: R11.2 - Nausea with vomiting, unspecified Status: Acute (6) Leukocytosis ICD Code: D72.829 - Elevated white blood cell count, unspecified Status: Acute (7) Diabetes mellitus ICD Code: E11.9 - Diabetes mellitus Status: Chronic Assessment and Plan 61 years old male Alcohol dependence- counselled - counselled- very motivated RESP: Tobacco abuse - counselled CV: Shock, hypovolemic - resolved. - Received total 5 L normal saline boluses GI: Hypokalemia- improved - repeat K- 4. Hypomagnesemia HYpophosphatemia- improved - C diff negative. Famotidine for GI prophylaxis, Zofran for nausea and vomiting - ADA renal diet - po KCL to bid. on Kphos : Acute kidney failure - resolving- non oliguric. - Monitor renal function closely. Mercado catheter. Acute renal failure workup per Dr. Alcaraz - Total 6L IV boluses with no UO. Diuresis started with Bumex 1 mg /hr, reduced 0.5 mg per hour 06/15/17, stopped today for hypokalemia. - Total 7 L UO since last 24 hours. - D/W Dr. Buck. No HD recommended. Creatinine improving. - ff BMP- improving- DC today- ID: Shock-resolved - Received vancomycin and Zosyn in the ED, on Zosyn renally dosed. - Blood urine culture neg to date. DC Zosyn and observe. no evidence of ongoing infection. - not on any antibiotics - recheck UA - improved HEME: Leukocytosis -resolved Thrombocytopenia - Monitor CBC, CMP, coags - Thrombocytopenia be secondary to alcohol abuse, sepsis. ENDO: Type 2 diabetes Hyperglycemia - Monitor for hyperkalemia - Sliding-scale insulin - as OP was on Metformin- d/w him - discontinued - check A1C- 7.6 start 70/30 5 units bid - daughter is a PACU nurse and will supervise - Right shoulder pain -CT- old tear- OP ff up with Dr. Garcia in 2 weeks DC today OP ff up with Dr. Horvath OP ff up with Dr. Garcia in 2 weeks Problem Qualifiers (1) Acute kidney failure: Qualified Codes: N17.9 - Acute kidney failure, unspecified (2) Nausea and vomiting: (3) Leukocytosis: Qualified Codes: D72.829 - Elevated white blood cell count, unspecified (4) Diabetes mellitus: Kodak Garcia MD Jun 21, 2017 14:19
--- NOTE | 2017-06-21 14:20 | HHI.DS ---
Discharge Summary Admission Date Admitting Diagnosis CBC/BMP: 06/21/1770806/21/17708 Significant Findings Kodak Garcia MD Jun 21, 2017 14:20
[2017-06-21] MEDS ORDERED: KLOR8TAB PO ×2 (14:25→14:27)
[2017-06-21] MEDS ORDERED: ULTR50TA5 PO (14:25)
[2017-06-21] MEDS ORDERED: NOVO7030P2 SQ (14:25)
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
[2017-06-21] MEDS ORDERED: INSULIN HUMAN NPH/R 70/30 1,000 UNITS/10 ML VIAL SQ SCH (17:00)
== END 2017-06-21 16:14 | disposition home or self-care (01) | DRG 871 ==
LOC: NEPC 09:44 → NEDA 12:05 → HIMN 12:30 → N05A 06-17 23:00
PROVIDERS: ADMIT Internal Medicine; ATTEND Internal Medicine
DX: A41.9 Sepsis, unspecified organism (principal); N17.0 Acute kidney failure with tubular necrosis; R57.1 Hypovolemic shock; E87.4 Mixed disorder of acid-base balance; E11.22 Type 2 diabetes mellitus with diabetic chronic kidney disease; D69.59 Other secondary thrombocytopenia; E11.65 Type 2 diabetes mellitus with hyperglycemia; R65.21 Severe sepsis with septic shock; E87.1 Hypo-osmolality and hyponatremia; E83.51 Hypocalcemia; I12.9 Hypertensive chronic kidney disease with stage 1 through stage 4 chronic kidney disease, or unspecified chronic kidney disease; F17.210 Nicotine dependence, cigarettes, uncomplicated; E83.42 Hypomagnesemia; E78.00 Pure hypercholesterolemia, unspecified; E87.6 Hypokalemia; F10.20 Alcohol dependence, uncomplicated; N18.9 Chronic kidney disease, unspecified; M19.011 Primary osteoarthritis, right shoulder; S42.011A Anterior displaced fracture of sternal end of right clavicle, initial encounter for closed fracture; G89.29 Other chronic pain; R19.7 Diarrhea, unspecified; Z79.84 Long term (current) use of oral hypoglycemic drugs; Z85.46 Personal history of malignant neoplasm of prostate
CPT/HCPCS: 36600; 71010; 73200; 74176; 76937; 80048; 80053; 81001; 82533; 82550; 82552; 82607; 82805; 82948; 83036; 83605; 83690; 83735; 84100; 84132; 84443; 84484; 85007; 85025; 85027; 85610; 85730; 87040; 87086; 87493; 87641; 93005; 96365; 96368; 96375; J0610; J1815; J2060; J2405; J2543; J3370; J3411; J3475; J3480; J7030; J7040; J7050; P9047

== ENCOUNTER 2017-08-18 12:59 | Emergency (ER) | payer OTHER ==
[~2017-08-18] VITALS: Ht 175.3 cm; Wt 80.0 kg
[~2017-08-18 12:59] MED LIST changes: +KLOR8TAB PO; -LISI-515 PO; -METF1000 PO; -MULT1TAB84 PO; +NOVO7030P2 SQ; -NYST1000 SWISH-SWAL; -PROT40TA PO; +TRAM50 PO; -VITA100T2 PO
[2017-08-18 13:05] VITALS: BP 144/66; PULSE 18; PULSE 92; RESP 16; TEMP 97.6; O2SAT 98
[2017-08-18 14:12] LABS: AUTOMATED NEUTROPHIL # 3.6 TH/MM3 (1.8-7.7); BASOPHIL % 0.6 % (0.0-2.0); EOSINOPHIL % 0.1 % (0.0-4.0); HEMATOCRIT 44.6 % (39.0-51.0); HEMOGLOBIN 15.7 GM/DL (13.0-17.0); LYMPH % 23.2 % (9.0-44.0); LYMPHOCYTE # 1.2 TH/MM3 (1.0-4.8); MEAN CELL VOLUME 102.2 FL (80.0-100.0); MEAN CORPUSCULAR HEMOGLOBIN 36.1 PG (27.0-34.0); MEAN CORPUSCULAR HGB CONC 35.3 % (32.0-36.0); MONO % 4.7 % (0.0-8.0); MONOCYTE # 0.2 TH/MM3 (0-0.9); NEUT % 71.4 % (16.0-70.0); PLATELET COUNT 149 TH/MM3 (150-450); RED BLOOD COUNT 4.36 MIL/MM3 (4.50-5.90); RED CELL DISTRIBUTION WIDTH 13.1 % (11.6-17.2); WHITE BLOOD COUNT 5.1 TH/MM3 (4.0-11.0)
[2017-08-18 14:27] LABS: ALBUMIN 3.9 GM/DL (3.4-5.0); AST (GOT) 83 U/L (15-37); BICARBONATE 18.4 MEQ/L (21.0-32.0); BLOOD UREA NITROGEN 13 MG/DL (7-18); CHLORIDE 97 MEQ/L (98-107); CREATININE 1.18 MG/DL (0.60-1.30); GLOMERULAR FILTRATION RATE 63 ML/MIN (>89); GLUCOSE,RANDOM 123 MG/DL (74-106); SODIUM (NA) 137 MEQ/L (136-145)
[2017-08-18 14:28] LABS: ALT (GPT) 87 U/L (12-78)
[2017-08-18 14:30] LABS: ALKALINE PHOSPHATASE 80 U/L (45-117); TOTAL BILIRUBIN ADULT 0.8 MG/DL (0.2-1.0); TOTAL PROTEIN 6.6 GM/DL (6.4-8.2)
--- NOTE | 2017-08-18 14:55 | PD ---
HPI Chief Complaint: Psychiatric Symptoms Time Seen by Provider: 13:13 Travel History International Travel<30 days: No Contact w/Intl Traveler<30days: No Traveled to known affect area: No History of Present Illness HPI 62-year-old male with PMH of HTN, DM, chronic alcohol abuse presents to the ED for voluntary psychiatric evaluation. He states that his daughter said that he was "passed out" this morning and wanted to bring him to the hospital. On presentation he denies suicidal or homicidal ideation. He denies visual or auditory hallucinations. He does state that he feels as if life is not worth living anymore. He denies any previous psychiatric history, psychiatric hospitalization or suicide attempt. He has no somatic complaints and states that his last drink was sometime last night. He denies history of withdrawal seizure. He is followed by Dr. Horvath, PCP [facility] Past Medical History Cancer: Yes (PROSTATE) Cardiovascular Problems: Yes (HTN) High Cholesterol: Yes Chemotherapy: No Diabetes: Yes Patient Takes Glucophage: No Endocrine: Yes Genitourinary: No Hypertension: Yes Immune Disorder: No Musculoskeletal: No Neurologic: No Psychiatric: No Reproductive: No Radiation Therapy: No Past Surgical History Eye Surgery: Yes (CATARACTS) Prostatectomy: Yes Tonsillectomy: Yes Other Surgery: Yes (tonsillectomy, prostate removed, metal plate upper R ARM) Social History Alcohol Use: Yes (PINT OF VODKA DAILY ) Tobacco Use: Yes (1.5 DAILY ) Substance Use: No Allergies-Medications (Allergen,Severity, Reaction): Coded Allergies: No Known Allergies (Verified , 06/14/17) Reported Meds & Prescriptions Reported Meds & Active Scripts Active Novolin 70-30 Inj (Insulin Human Isoph/Insulin Regular) 1,000 Unit/10 Ml Vial 5 Units SQ BID@ 30 Days Reported [Unknown ] 10 DAILY Review of Systems Except as stated in HPI: all other systems reviewed are Neg Physical Exam Narrative GENERAL: Well-nourished, well-developed patient. PSYCHIATRIC: Flat affect. Cooperative. SKIN: Focused skin assessment warm/dry. Crusted wound of the right upper extremity without signs of infection. HEAD: Normocephalic. EYES: No scleral icterus. No injection or drainage. NECK: Supple, trachea midline. No JVD or lymphadenopathy. CARDIOVASCULAR: Regular rate and rhythm without murmurs, gallops, or rubs. RESPIRATORY: Breath sounds equal bilaterally. No accessory muscle use. GASTROINTESTINAL: Abdomen soft, non-tender, nondistended. MUSCULOSKELETAL: No cyanosis, or edema. BACK: Nontender without obvious deformity. No CVA tenderness. Data Data Last Documented VS Vital Signs Date Time Temp Pulse Resp B/P (MAP) Pulse Ox O2 Delivery O2 Flow Rate FiO2 08/18/17 13:05 97.6 92 16 144/66 (92) 98 Orders Orders Complete Blood Count With Diff (08/18/17 13:13) Comprehensive Metabolic Panel (08/18/17 13:13) Psych Screen (08/18/17 13:13) Drug Screen, Random Urine (08/18/17 13:13) Alcohol (Ethanol) (08/18/17 13:13) Alcohol Withdrawal Asmt-Ciwa ONCE (08/18/17 14:56) Flumazenil Inj (Romazicon Inj) (08/18/17 15:00) Lorazepam (Ativan) (08/18/17 15:00) Lorazepam Inj (Ativan Inj) (08/18/17 15:00) Lorazepam (Ativan) (08/18/17 15:00) Lorazepam Inj (Ativan Inj) (08/18/17 15:00) Lorazepam Inj (Ativan Inj) (08/18/17 15:00) Lorazepam Inj (Ativan Inj) (08/18/17 15:00) Calcium Carbonate Chew (Tums Chew) (08/18/17 15:00) Labs Laboratory Tests Test 08/18/17 13:40 White Blood Count 5.1 TH/MM3 Red Blood Count 4.36 MIL/MM3 Hemoglobin 15.7 GM/DL Hematocrit 44.6 % Mean Corpuscular Volume 102.2 FL Mean Corpuscular Hemoglobin 36.1 PG Mean Corpuscular Hemoglobin Concent 35.3 % Red Cell Distribution Width 13.1 % Platelet Count 149 TH/MM3 Mean Platelet Volume 8.0 FL Neutrophils (%) (Auto) 71.4 % Lymphocytes (%) (Auto) 23.2 % Monocytes (%) (Auto) 4.7 % Eosinophils (%) (Auto) 0.1 % Basophils (%) (Auto) 0.6 % Neutrophils # (Auto) 3.6 TH/MM3 Lymphocytes # (Auto) 1.2 TH/MM3 Monocytes # (Auto) 0.2 TH/MM3 Eosinophils # (Auto) 0.0 TH/MM3 Basophils # (Auto) 0.0 TH/MM3 CBC Comment DIFF FINAL Differential Comment Blood Urea Nitrogen 13 MG/DL Creatinine 1.18 MG/DL Random Glucose 123 MG/DL Total Protein 6.6 GM/DL Albumin 3.9 GM/DL Calcium Level 8.0 MG/DL Alkaline Phosphatase 80 U/L Aspartate Amino Transf (AST/SGOT) 83 U/L Alanine Aminotransferase (ALT/SGPT) 87 U/L Total Bilirubin 0.8 MG/DL Sodium Level 137 MEQ/L Potassium Level 3.7 MEQ/L Chloride Level 97 MEQ/L Carbon Dioxide Level 18.4 MEQ/L Anion Gap 22 MEQ/L Estimat Glomerular Filtration Rate 63 ML/MIN Ethyl Alcohol Level 245 MG/DL [facility] Medical Decision Making Medical Screen Exam Complete: Yes Emergency Medical Condition: Yes Differential Diagnosis Adjustment disorder versus anxiety versus bipolar versus depression versus dementia versus electrolyte disorder versus malingering versus mood disorder versus ODD versus psychosis versus PTSD versus schizophrenia versus schizoaffective disorder versus substance-induced mood disorder versus other Narrative Course 62-year-old male with PMH of HTN, DM, chronic alcohol abuse presents to the ED for voluntary psychiatric evaluation. He states that his daughter said that he was "passed out" this morning and wanted to bring him to the hospital. On presentation he denies SI, HI. He states that he feels as if life is not worth living anymore. He denies any previous psychiatric history, psychiatric hospitalization or suicide attempt. He has no somatic complaints and states that his last drink was sometime last night. He denies history of withdrawal seizure. Vitals reviewed. Physical exam is unremarkable. Lab work reveals elevated LFTs, expected for chronic alcoholism. Mild deficit of calcium which was repleted orally. Alcohol 245. CIWA protocol was initiated. Patient is medically cleared for psychiatric evaluation. While waiting for psychiatric evaluation the patient decided that he did not want to stay. I don't think he meets farris act criteria. However he still too intoxicated to leave alone. He is able to demonstrate a normal gait and he doesn't have slurred speech. His daughter is coming to bedside and he'll be released into her care. Diagnosis Primary Impression: Chronic alcoholism Referrals: Dada Horvath MD PhD Patient Instructions: General Instructions Departure Forms: Tests/Procedures Additional Instructions: Follow-up with [facility] if you want to stop drinking. Return to the ED for any urgent or emergent medical condition. Disposition: 01 DISCHARGE HOME Condition: Stable Sonia Blackmon Aug 18, 2017 14:55
[2017-08-18] MEDS ORDERED: LORazepam 2 MG/ML VIAL IV PUSH PRN ×4 (15:00)
[2017-08-18] MEDS ORDERED: CALCIUM CARBONATE 500 MG CHEWABLE TAB CHEW ONE (15:00)
[2017-08-18] MEDS ORDERED: LORazepam 2 MG TAB PO PRN (15:00)
[2017-08-18] MEDS ORDERED: LORazepam 1 MG TAB PO PRN (15:00)
[2017-08-18] MEDS ORDERED: FLUMAZENIL 0.5 MG/5 ML VIAL IV PUSH PRN (15:00)
== END 2017-08-18 17:48 | disposition home or self-care (01) ==
LOC: NEPD 12:59
DX: F10.229 Alcohol dependence with intoxication, unspecified (principal); F17.200 Nicotine dependence, unspecified, uncomplicated; I10 Essential (primary) hypertension; E11.9 Type 2 diabetes mellitus without complications; Y90.8 Blood alcohol level of 240 mg/100 ml or more; Z79.4 Long term (current) use of insulin; Z79.899 Other long term (current) drug therapy
CPT/HCPCS: 80053; 80307; 85025; 99283

== ENCOUNTER 2017-08-24 13:49 | Inpatient (IN) | payer OTHER ==
[2017-08-24] VITALS (7 sets, daily range): BP systolic 113–167; BP diastolic 58–93; PULSE 75–100; RESP 18–20; TEMP 97.9–98.5; O2SAT 95–97
[~2017-08-24] VITALS: Ht 175.3 cm; Wt 76.4 kg
[~2017-08-24 13:49] MED LIST changes: -KLOR8TAB PO; -TRAM50 PO
[2017-08-24] MEDS ORDERED: METF1000 PO (14:08)
[2017-08-24] MEDS ORDERED: LISI10TA3 PO (14:08)
[2017-08-24] MEDS ORDERED: SODIUM CHLORIDE 0.9% FLUSH 10 ML FLUSH IVF PRN (14:15)
[2017-08-24 14:41] LABS: AUTOMATED NEUTROPHIL # 6.5 TH/MM3 (1.8-7.7); BASOPHIL % 0.4 % (0.0-2.0); EOSINOPHIL % 0.2 % (0.0-4.0); HEMATOCRIT 43.3 % (39.0-51.0); HEMOGLOBIN 15.2 GM/DL (13.0-17.0); LYMPH % 11.9 % (9.0-44.0); MEAN CELL VOLUME 101.3 FL (80.0-100.0); MEAN CORPUSCULAR HEMOGLOBIN 35.5 PG (27.0-34.0); MEAN CORPUSCULAR HGB CONC 35.1 % (32.0-36.0); MEAN PLATELET VOLUME 9.5 FL (7.0-11.0); MONO % 6.4 % (0.0-8.0); MONOCYTE # 0.5 TH/MM3 (0-0.9); NEUT % 81.1 % (16.0-70.0); PLATELET COUNT 58 TH/MM3 (150-450); RED BLOOD COUNT 4.27 MIL/MM3 (4.50-5.90)
[2017-08-24 15:01] LABS: BILIRUBIN, URINE NEG (NEG); BLOOD, URINE SMALL (NEG); GLUCOSE,URINE 150 mg/dL (NEG); HYALINE CAST, URINE 1 /lpf (RARE); KETONE, URINE 40 mg/dL (NEG); MUCUS URINE FEW /lpf (OCC); NITRITE,URINE NEG (NEG); URINE COLOR YELLOW (YELLW/STRAW); URINE LEUKOCYTE ESTERASE TRACE (NEG)
[2017-08-24 15:05] LABS: ALBUMIN 4.2 GM/DL (3.4-5.0); ALT (GPT) 108 U/L (12-78); AST (GOT) 162 U/L (15-37); BICARBONATE 23.1 MEQ/L (21.0-32.0); BLOOD UREA NITROGEN 5 MG/DL (7-18); CALCIUM 8.3 MG/DL (8.5-10.1); CHLORIDE 91 MEQ/L (98-107); CREATININE 1.03 MG/DL (0.60-1.30); GLOMERULAR FILTRATION RATE 73 ML/MIN (>89); GLUCOSE,RANDOM 201 MG/DL (74-106); SODIUM (NA) 127 MEQ/L (136-145)
[2017-08-24 15:06] LABS: ALKALINE PHOSPHATASE 106 U/L (45-117); TOTAL BILIRUBIN ADULT 1.3 MG/DL (0.2-1.0); TOTAL PROTEIN 6.6 GM/DL (6.4-8.2)
--- NOTE | 2017-08-24 15:33 | RADRPT ---
EXAM DATE/TIME: 08/24/2017 14:51 [place] COMPARISON: No previous studies available for comparison. INDICATIONS : Seizure, confusion, urine retention. RADIATION DOSE: 69.15 CTDIvol (mGy) MEDICAL HISTORY : Cardiovascular disease. Hypertension. Carcinoma, prostate.Diabetes SURGICAL HISTORY : None. ENCOUNTER: Initial ACUITY: 1 day PAIN SCALE: 0/10 LOCATION: cranial TECHNIQUE: Multiple contiguous axial images were obtained of the head. Using automated exposure control and adj ustment of the mA and/or kV according to patient size, radiation dose was kept as low as reasonably a chievable to obtain optimal diagnostic quality images. DICOM format image data is available electro nically for review and comparison. FINDINGS: There is no evidence for intracranial hemorrhage, mass effect, mass lesions, edema, or extra-axial fl uid collections. The visualized bony structures appear intact. The ventricles are normal size for t he patient's age. There are no signs of acute infarction for technique. CONCLUSION: Unremarkable study. Berenice To MD on August 24, 2017 at 15:30 Board Certified Radiologist. This report was verified electronically.
[2017-08-24 16:03] LABS: BANDS 13 % (0-6); BASOPHILS 1 % (0-2); LYMPHOCYTES 10 % (9-44); METAMYELOCYTES 1 % (0-1); MONOCYTES 4 % (0-8); NEUTROPHIL # MANUAL DIFF 6.8 TH/MM3 (1.8-7.7); POLYS (SEG NEUTROPHILS) 71 % (16-70)
--- NOTE | 2017-08-24 16:20 | PD ---
HPI Chief Complaint: Seizure Time Seen by Provider: 14:06 Travel History International Travel<30 days: No Contact w/Intl Traveler<30days: No Traveled to known affect area: No History of Present Illness HPI This is a 62-year-old male with a history of alcohol use, "renal problems", who presents via EMS after he reportedly had a 2 minute tonic-clonic seizure in the car while driving to the hospital. According to the paramedics the daughter reports that she was bringing him to the hospital because he was not acting his normal self. Reportedly detention here he started having active tonic-clonic seizures. There is no reported history of seizure disorder. The patient does have a history of alcohol use. He is still confused and postictal. He reportedly has not had a drink in 24 hours according to the daughter who is not here at this point. His was told to the paramedics on scene. There is no further history elicited. PFSH Past Medical History Cancer: Yes (PROSTATE) Cardiovascular Problems: Yes (HTN) High Cholesterol: Yes Chemotherapy: No Diabetes: Yes (TYPE II METFORMIN) Patient Takes Glucophage: Yes (METFORMIN ) Endocrine: Yes Genitourinary: No Hypertension: Yes Immune Disorder: No Musculoskeletal: No Neurologic: No Psychiatric: No Reproductive: No Radiation Therapy: No Past Surgical History Eye Surgery: Yes (CATARACTS) Prostatectomy: Yes Tonsillectomy: Yes Other Surgery: Yes (tonsillectomy, prostate removed, metal plate upper R ARM) Social History Alcohol Use: Yes (PINT OF VODKA DAILY ) Tobacco Use: Yes (1.5 DAILY ) Substance Use: No Allergies-Medications (Allergen,Severity, Reaction): Coded Allergies: No Known Allergies (Verified Adverse Reaction, Unknown, 08/24/17) Reported Meds & Prescriptions Reported Meds & Active Scripts Active Novolin 70-30 Inj (Insulin Human Isoph/Insulin Regular) 1,000 Unit/10 Ml Vial 5 Units SQ BID@ 30 Days Reported Metformin (Metformin HCl) 1,000 Mg Tab 1,000 Mg PO BIDPC Lisinopril 10 Mg Tab 10 Mg PO DAILY [Unknown ] 10 DAILY Review of Systems ROS Limitations: Clinical Condition, Altered Mental Status (patient is altered and alert to place and president. He does not know the date or the year.) Except as stated in HPI: all other systems reviewed are Neg HENT: No: Headaches, Neck Pain Cardiovascular: No: Chest Pain or Discomfort, Palpitations Respiratory: No: Cough, Shortness of Breath Gastrointestinal: No: Nausea, Vomiting, Abdominal Pain Genitourinary: Positive: Decreased Urinary Output, No: Incontinence Musculoskeletal: No: Weakness, Pain Neurologic: Positive: Change in Mentation, No: Headache Physical Exam Narrative GENERAL: Well-developed well-nourished male in no acute respiratory distress SKIN: Focused skin assessment warm/dry. HEAD: Atraumatic. Normocephalic. EYES: Pupils equal and round. No scleral icterus. No injection or drainage. ENT: No nasal bleeding or discharge. Mucous membranes pink and moist. NECK: Trachea midline. Supple. CARDIOVASCULAR: Regular rate and rhythm. No murmur appreciated. RESPIRATORY: No accessory muscle use. Clear to auscultation. Breath sounds equal bilaterally. GASTROINTESTINAL: Abdomen soft, non-tender, nondistended. Hepatic and splenic margins not palpable. MUSCULOSKELETAL: No obvious deformities. No clubbing. No cyanosis. No edema. NEUROLOGICAL: Awake and confused.. No obvious cranial nerve deficits. Motor grossly within normal limits. No slurred speech. PSYCHIATRIC: Appropriate mood and affect; insight and judgment normal. Data Data Last Documented VS Vital Signs Date Time Temp Pulse Resp B/P (MAP) Pulse Ox O2 Delivery O2 Flow Rate FiO2 08/24/17 16:31 99 18 113/79 (90) 95 Room Air 08/24/17 13:59 98.5 Orders Orders Complete Blood Count With Diff (08/24/17 14:06) Alcohol (Ethanol) (08/24/17 14:06) Drug Screen, Random Urine (08/24/17 14:06) Ct Brain W/O Iv Contrast(Rout) (08/24/17 ) Blood Glucose (08/24/17 14:06) Ecg Monitoring (08/24/17 14:06) Iv Access Insert/Monitor (08/24/17 14:06) Oximetry (08/24/17 14:06) Comprehensive Metabolic Panel (08/24/17 14:06) Sodium Chloride 0.9% Flush (Ns Flush) (08/24/17 14:15) Urinalysis - C+S If Indicated (08/24/17 14:06) Urinary Catheter Insert/Apply (08/24/17 14:06) Sodium Chlor 0.9% 1000 Ml Inj (Ns 1000 M (08/24/17 16:15) Electrocardiogram (08/24/17 13:58) Labs Laboratory Tests Test 08/24/17 14:20 White Blood Count 8.0 TH/MM3 Red Blood Count 4.27 MIL/MM3 Hemoglobin 15.2 GM/DL Hematocrit 43.3 % Mean Corpuscular Volume 101.3 FL Mean Corpuscular Hemoglobin 35.5 PG Mean Corpuscular Hemoglobin Concent 35.1 % Red Cell Distribution Width 13.0 % Platelet Count 58 TH/MM3 Mean Platelet Volume 9.5 FL Neutrophils (%) (Auto) 81.1 % Lymphocytes (%) (Auto) 11.9 % Monocytes (%) (Auto) 6.4 % Eosinophils (%) (Auto) 0.2 % Basophils (%) (Auto) 0.4 % Neutrophils # (Auto) 6.5 TH/MM3 Lymphocytes # (Auto) 1.0 TH/MM3 Monocytes # (Auto) 0.5 TH/MM3 Eosinophils # (Auto) 0.0 TH/MM3 Basophils # (Auto) 0.0 TH/MM3 CBC Comment AUTO DIFF Differential Total Cells Counted 100 Neutrophils % (Manual) 71 % Band Neutrophils % 13 % Lymphocytes % 10 % Monocytes % 4 % Basophils % 1 % Neutrophils # (Manual) 6.8 TH/MM3 Metamyelocytes 1 % Differential Comment FINAL DIFF MANUAL Platelet Estimate LOW Platelet Morphology Comment NORMAL Urine Color YELLOW Urine Turbidity CLEAR Urine pH 6.0 Urine Specific [place] 1.025 Urine Protein 100 mg/dL Urine Glucose (UA) 150 mg/dL Urine Ketones 40 mg/dL Urine Occult Blood SMALL Urine Nitrite NEG Urine Bilirubin NEG Urine Urobilinogen 4.0 MG/DL Urine Leukocyte Esterase TRACE Urine RBC 1 /hpf Urine WBC 1 /hpf Urine Hyaline Casts 1 /lpf Urine Mucus FEW /lpf Microscopic Urinalysis Comment CATH-CULT NOT IND Blood Urea Nitrogen 5 MG/DL Creatinine 1.03 MG/DL Random Glucose 201 MG/DL Total Protein 6.6 GM/DL Albumin 4.2 GM/DL Calcium Level 8.3 MG/DL Alkaline Phosphatase 106 U/L Aspartate Amino Transf (AST/SGOT) 162 U/L Alanine Aminotransferase (ALT/SGPT) 108 U/L Total Bilirubin 1.3 MG/DL Sodium Level 127 MEQ/L Potassium Level 3.2 MEQ/L Chloride Level 91 MEQ/L Carbon Dioxide Level 23.1 MEQ/L Anion Gap 13 MEQ/L Estimat Glomerular Filtration Rate 73 ML/MIN Urine Opiates Screen NEG Urine Barbiturates Screen NEG Urine Amphetamines Screen NEG Urine Benzodiazepines Screen NEG Urine Cocaine Screen NEG Urine Cannabinoids Screen NEG Ethyl Alcohol Level LESS THAN 3 MG/DL MDM Medical Decision Making Medical Screen Exam Complete: Yes Emergency Medical Condition: Yes Differential Diagnosis Alcohol withdrawal versus new onset seizure disorder versus metabolic disorder. Narrative Course 62-year-old male with a history of alcohol abuse, diabetes mellitus, presents after having a witnessed tonic-clonic activity while driving to the hospital with his daughter. Daughter reports that he's not been acting his normal self over the last several days. She states that initially he thought it was secondary to depression from his recent anniversary of his 's however he appeared to be more confused than what would be expected. The patient does have a history of heavy alcohol use and last drank brain in 24 hours ago. Sodium is noted to be 117. The patient's potassium was 3.2. The LFTs including bilirubin were elevated which is likely secondary to his alcohol abuse. ET scan of the brain shows no evidence of acute findings. He'll be admitted to the hospital for sodium correction. He'll likely need neuro consult for the seizure activity. The case was discussed with the senior resident for the resident admission service. He is agreeable to the admission. The patient is been started on normal saline at 1 25 cc per hour. Diagnosis Primary Impression: New onset seizure Additional Impressions: Hyponatremia Hypokalemia Elevated transaminase level Chronic alcohol abuse Admitting Information Admitting Physician Requests: Admit Kareem Wetzel MD Aug 24, 2017 16:20
[2017-08-24] MEDS: SODIUM CHLOR 0.9% 1000 ML INJ 1,000 ML IV SCH (16:25)
--- NOTE | 2017-08-24 17:10 | HHI.HP ---
[facility] Service Family Medicine Primary Care Physician Dada Horvath MD, PhD Admission Diagnosis new onset seizure, hyponatremia, hypokalemia, elevated liver enzymes Diagnoses: Chief Complaint: seizure International Travel<30 Days: No Contact w/Intl Traveler<30days: No Known Affected Area: No History of Present Illness 62-year-old male with history of hypertension, diabetes, alcoholism presents with seizure. Patient reports that this morning he woke up at 2 AM, had a lot of anxiety. He states he drank some water and smoke some cigarettes, and then asked his daughter to drive him to the hospital because he didn't feel well. He was the passenger in his daughter's car and per EMS report had a two-minute tonic- clonic seizure while in the car. This was reported by her daughter, who is not present in the room. He remembers shaking and losing consciousness. Denies any loss of bowel or bladder function. Didn't bite his tongue. Denies any history of seizures in the past. He usually drinks 1 pint of liquor every night, has been doing this for the last 40 years. He states he's had withdrawals from alcohol in the past, but no seizures. They're usually just tremors. He states he did have a drink last night around 8 PM. Denies any neck pain. Some lower back pain. Endorses feeling "achy". Denies any chest pain, shortness of breath, numbness or tingling, weakness. Denies any nausea or vomiting. No diarrhea. No recent illness. He does state that he's felt depressed lately, he recently ended a 3 year long-term relationship. His PCP is Dr. Horvath. (Ian Ty MD, R2) Review of Systems Constitutional: COMPLAINS OF: Weight loss, Chills, DENIES: Fever, Weight gain ( s/p hospitalization) Eyes: DENIES: Eye pain, Vision loss Ears, nose, mouth, throat: DENIES: Hearing loss, Throat pain Respiratory: COMPLAINS OF: Cough, DENIES: Sputum production, Shortness of breath Cardiovascular: COMPLAINS OF: Syncope, DENIES: Chest pain, Palpitations, Lower Extremity Edema Gastrointestinal: DENIES: Abdominal pain, Black stools, Bloody stools, Constipation, Diarrhea, Nausea, Vomiting Genitourinary: DENIES: Urgency, Dysuria, Nocturia Musculoskeletal: COMPLAINS OF: Back pain, DENIES: Neck pain Integumentary: DENIES: Abnormal pigmentation, Rash Hematologic/lymphatic: DENIES: Bruising, Lymphadenopathy Neurologic: COMPLAINS OF: Seizures, DENIES: Headache, Localized weakness, Paresthesias Psychiatric: COMPLAINS OF: Confusion, Depression, DENIES: Anxiety, Suicidal Ideation, Homicidal Ideation (Ian Ty MD, R2) Past Family Social History Past Medical History HTN DM Hyperlipidemia Prostate cancer-cured after prostatectomy Past Surgical History Proctectomy 2008 Tonsillectomy Cataracts R arm ORIF Reported Medications Reported Meds & Active Scripts Active Novolin 70-30 Inj (Insulin Human Isoph/Insulin Regular) 1,000 Unit/10 Ml Vial 5 Units SQ BID@,17 30 Days Reported Metformin (Metformin HCl) 1,000 Mg Tab 1,000 Mg PO BIDPC Lisinopril 10 Mg Tab 10 Mg PO DAILY [Unknown ] 10 DAILY (Ian Ty MD, R2) Allergies: Coded Allergies: No Known Allergies (Verified Allergy, Unknown, 08/24/17) Active Ordered Medications Active Medications Sodium Chloride 1,000 ml @ 125 mls/hr Q8H IV Last administered on 08/24/17t 16 :25; Admin Dose 125 MLS/HR; Start 08/24/17 at 16:15 Sodium Chloride (NS Flush) 2 ml UNSCH PRN IVF; Start 08/24/17 at 14:15 Family History Mother-living, healthy Father-32y, DM Social History Used to be hunt Alcohol: 1 pint liquor daily Tobacco: 1.5 PPD (40y) Illicit drugs: denies (Ina Ty MD, R2) Physical Exam Vital Signs Vital Signs Date Time Temp Pulse Resp B/P (MAP) Pulse Ox O2 Delivery O2 Flow Rate FiO2 08/24/17 16:31 99 18 113/79 (90) 95 Room Air 08/24/17 14:11 97 Room Air 08/24/17 13:59 98.5 100 18 167/93 (117) 97 Physical Exam GENERAL: This is a well-nourished, well-developed patient, in no apparent distress. Lying in bed SKIN: No rashes, ecchymoses or lesions. Cool and dry. HEAD: Atraumatic. Normocephalic. No temporal or scalp tenderness. EYES: Pupils equal round and reactive. Extraocular motions intact. No scleral icterus. Bilateral conjunctival injection and yellow drainage. (States eyes stuck shut in morning) ENT: Throat without erythema, tonsillar hypertrophy or exudate. Uvula midline. Airway patent. NECK: Trachea midline. No JVD or lymphadenopathy. Supple, nontender, no meningeal signs. CARDIOVASCULAR: Regular rate and rhythm without murmurs, gallops, or rubs. RESPIRATORY: Clear to auscultation. Breath sounds equal bilaterally. No wheezes , rales, or rhonchi. GASTROINTESTINAL: Abdomen soft, non-tender, nondistended. No hepato-splenomegaly , or palpable masses. No guarding. MUSCULOSKELETAL: Extremities without clubbing, cyanosis, or edema. No joint tenderness, effusion, or edema noted. No calf tenderness. NEUROLOGICAL: Awake and alert. Oriented x3. Cranial nerves II through XII intact. Motor and sensory grossly within normal limits. Five out of 5 muscle strength in all muscle groups. Normal speech. Normal sensation bilaterally. Negative cerebellar signs, negative [id number]. No word-finding difficulties. Laboratory Laboratory Tests Test 08/24/17 14:20 White Blood Count 8.0 Red Blood Count 4.27 Hemoglobin 15.2 Hematocrit 43.3 Mean Corpuscular Volume 101.3 Mean Corpuscular Hemoglobin 35.5 Mean Corpuscular Hemoglobin Concent 35.1 Red Cell Distribution Width 13.0 Platelet Count 58 Mean Platelet Volume 9.5 Neutrophils (%) (Auto) 81.1 Lymphocytes (%) (Auto) 11.9 Monocytes (%) (Auto) 6.4 Eosinophils (%) (Auto) 0.2 Basophils (%) (Auto) 0.4 Neutrophils # (Auto) 6.5 Lymphocytes # (Auto) 1.0 Monocytes # (Auto) 0.5 Eosinophils # (Auto) 0.0 Basophils # (Auto) 0.0 CBC Comment AUTO DIFF Differential Total Cells Counted 100 Neutrophils % (Manual) 71 Band Neutrophils % 13 Lymphocytes % 10 Monocytes % 4 Basophils % 1 Neutrophils # (Manual) 6.8 Metamyelocytes 1 Differential Comment FINAL DIFF MANUAL Platelet Estimate LOW Platelet Morphology Comment NORMAL Urine Color YELLOW Urine Turbidity CLEAR Urine pH 6.0 Urine Specific Lyons 1.025 Urine Protein 100 Urine Glucose (UA) 150 Urine Ketones 40 Urine Occult Blood SMALL Urine Nitrite NEG Urine Bilirubin NEG Urine Urobilinogen 4.0 Urine Leukocyte Esterase TRACE Urine RBC 1 Urine WBC 1 Urine Hyaline Casts 1 Urine Mucus FEW Microscopic Urinalysis Comment CATH-CULT NOT IND Blood Urea Nitrogen 5 Creatinine 1.03 Random Glucose 201 Total Protein 6.6 Albumin 4.2 Calcium Level 8.3 Alkaline Phosphatase 106 Aspartate Amino Transf (AST/SGOT) 162 Alanine Aminotransferase (ALT/SGPT) 108 Total Bilirubin 1.3 Sodium Level 127 Potassium Level 3.2 Chloride Level 91 Carbon Dioxide Level 23.1 Anion Gap 13 Estimat Glomerular Filtration Rate 73 Urine Opiates Screen NEG Urine Barbiturates Screen NEG Urine Amphetamines Screen NEG Urine Benzodiazepines Screen NEG Urine Cocaine Screen NEG Urine Cannabinoids Screen NEG Ethyl Alcohol Level LESS THAN 3 (Ian Ty MD, R2) Result Diagram: 08/24/17 1420 08/24/17 1420 Imaging Last Impressions Head CT 08/24/17 0000 Signed Impressions: Service Date/Time: Saturday, August 24, 2017 14:51 - CONCLUSION: Unremarkable study. Berenice To MD (Ian Ty MD, R2) Caprini VTE Risk Assessment Caprini VTE Risk Assessment: Mod/High Risk (score >= 2) Caprini Risk Assessment Model Point Value = 1 Point Value = 2 Point Value = 3 Point Value = 5 Age 41-60 Minor surgery BMI > 25 kg/m2 Swollen legs Varicose veins or History of unexplained or recurrent spontaneous Oral contraceptives or hormone replacement Sepsis (< 1 month) Serious lung disease, including pneumonia (< 1 month) Abnormal pulmonary function Acute myocardial infarction Congestive heart failure (< 1 month) History of inflammatory bowel disease Medical patient at bed rest Age 61-74 Arthroscopic surgery Major open surgery (> 45 min) Laparoscopic surgery (> 45 min) Malignancy Confined to bed (> 72 hours) Immobilizing plaster cast Central venous access Age >= 75 History of VTE Family history of VTE Factor V Leiden Prothrombin [id number] Lupus anticoagulant Anticardiolipin antibodies Elevated serum homocysteine Heparin-induced thrombocytopenia Other congenital or acquired thrombophilia Stroke (< 1 month) Elective arthroplasty Hip, pelvis, or leg fracture Acute spinal cord injury (< 1 month) Prophylaxis Regimen Total Risk Factor Score Risk Level Prophylaxis Regimen 0-1 Low Early ambulation 2 Moderate Order ONE of the following: *Sequential Compression Device (SCD) *Heparin 5000 units SQ BID 3-4 Higher Order ONE of the following medications: *Heparin 5000 units SQ TID *Enoxaparin/Lovenox 40 mg SQ daily (WT < 150 kg, CrCl > 30 mL/min) *Enoxaparin/Lovenox 30 mg SQ daily (WT < 150 kg, CrCl > 10-29 mL/min) *Enoxaparin/Lovenox 30 mg SQ BID (WT < 150 kg, CrCl > 30 mL/min) AND/OR *Sequential Compression Device (SCD) 5 or more Highest Order ONE of the following medications: *Heparin 5000 units SQ TID (Preferred with Epidurals) *Enoxaparin/Lovenox 40 mg SQ daily (WT < 150 kg, CrCl > 30 mL/min) *Enoxaparin/Lovenox 30 mg SQ daily (WT < 150 kg, CrCl > 10-29 mL/min) *Enoxaparin/Lovenox 30 mg SQ BID (WT < 150 kg, CrCl > 30 mL/min) AND *Sequential Compression Device (SCD) (Ian Ty MD, R2) Assessment and Plan Assessment and Plan 62-year-old male with history of hypertension, diabetes, alcoholism presents with seizures. We'll admit for neurology workup and treatment. Code Status Full Discussed Condition With Dr. Wetzel (Ian Ty MD, R2) Problem List: (1) Seizures ICD Codes: R56.9 - Unspecified convulsions Status: Acute Plan: Per ER report, patient went is to have tonic-clonic seizure witnessed by his daughter. Per ED report, patient was post ictal upon arrival. No history of seizures in the past. History significant for alcoholism. Causes could include alcohol withdrawals vs metabolic disturbance vs new onset seizure disorder. UDS negative. Alcohol <[address] negative for acute process Sodium 127. Glucose 201. -Consult neurology-appreciate recs -CIWA protocol -Ativan PRN seizures -Seizure precautions -NPO until after nurse swallow study -CPK, troponin pending -EEG -Neuro checks -Telemetry (2) Hyponatremia ICD Codes: E87.1 - Hypo-osmolality and hyponatremia Status: Acute Plan: Sodium 127 on admission. One week ago, was 137. Has been decreased on past admissions. Serum Osm 267. Euvolemic on exam Given 1L NS in ED -Repeat BMP tonight, trend sodium -If worsening, consider fluid restriction -Neuro checks as above (3) Chronic alcohol abuse ICD Codes: F10.10 - Alcohol abuse, uncomplicated Status: Acute Plan: Patient admits to drinking 1 pint of liquor per night. Has had DTs in the past. EtOH level <3 today Likely cause of electrolyte disturbances and CBC abnormalities -[facility] protocol -Counseled on risks of drinking and benefits of quitting -Consult CM-Etoh abuse plan -Multivitamins, folate, thiamine (4) HTN (hypertension) ICD Codes: I10 - Essential (primary) hypertension Plan: Continue home lisinopril Monitor BP Clonidine PRN (5) Diabetes mellitus ICD Codes: E11.9 - Diabetes mellitus Status: Chronic Plan: On metformin at home. Hold metformin. -Low-dose sliding scale insulin -Regular Accu-Cheks -Diabetic diet once passed swallow study (6) Thrombocytopenia ICD Codes: D69.6 - Thrombocytopenia, unspecified Status: Chronic Plan: Platelets of 58 on admission. Has been decreased in the past, down to 50 in May. Trending in the 50 to 100s -Monitor CBC -If decreases <50, hold chemoprophylaxis (7) Conjunctivitis ICD Codes: H10.9 - Unspecified conjunctivitis Plan: Patient states he's had eye discharge and eye redness last few days. States his eyes are stuck shut in the morning. -Polymyxin-Trimethoprim 1 drop QID (8) FEN Status: Acute Plan: Fluids: IVF in ED, monitor Sodium after Electrolytes: hyponatremia, hypokalemia-replacing Nutrition: NPO until after swallow study DVT ppx: lovenox (Ian Ty MD, R2) Problem List: (1) Seizures ICD Codes: R56.9 - Unspecified convulsions Status: Acute Plan: Per ER report, patient went is to have tonic-clonic seizure witnessed by his daughter. Per ED report, patient was post ictal upon arrival. No history of seizures in the past. History significant for alcoholism. Causes could include alcohol withdrawals vs metabolic disturbance vs new onset seizure disorder. UDS negative. Alcohol <[address] negative for acute process Sodium 127. Glucose 201. -Consult neurology-appreciate recs -[facility] protocol -Ativan PRN seizures -Seizure precautions -NPO until after nurse swallow study -CPK, troponin pending -EEG -Neuro checks -Telemetry (2) Hyponatremia ICD Codes: E87.1 - Hypo-osmolality and hyponatremia Status: Acute Plan: Sodium 127 on admission. One week ago, was 137. Has been decreased on past admissions. Serum Osm 267. Euvolemic on exam Given 1L NS in ED -Repeat BMP tonight, trend sodium -If worsening, consider fluid restriction -Neuro checks as above (3) Chronic alcohol abuse ICD Codes: F10.10 - Alcohol abuse, uncomplicated Status: Acute Plan: Patient admits to drinking 1 pint of liquor per night. Has had DTs in the past. EtOH level <3 today Likely cause of electrolyte disturbances and CBC abnormalities -[facility] protocol -Counseled on risks of drinking and benefits of quitting -Consult CM-Etoh abuse plan -Multivitamins, folate, thiamine (4) HTN (hypertension) ICD Codes: I10 - Essential (primary) hypertension Plan: Continue home lisinopril Monitor BP Clonidine PRN (5) Diabetes mellitus ICD Codes: E11.9 - Diabetes mellitus Status: Chronic Plan: On metformin at home. Hold metformin. -Low-dose sliding scale insulin -Regular Accu-Cheks -Diabetic diet once passed swallow study (6) Thrombocytopenia ICD Codes: D69.6 - Thrombocytopenia, unspecified Status: Chronic Plan: Platelets of 58 on admission. Has been decreased in the past, down to 50 in May. Trending in the 50 to 100s -Monitor CBC -If decreases <50, hold chemoprophylaxis (7) Conjunctivitis ICD Codes: H10.9 - Unspecified conjunctivitis Plan: Patient states he's had eye discharge and eye redness last few days. States his eyes are stuck shut in the morning. -Polymyxin-Trimethoprim 1 drop QID (8) FEN Status: Acute Plan: Fluids: IVF in ED, monitor Sodium after Electrolytes: hyponatremia, hypokalemia-replacing Nutrition: NPO until after swallow study DVT ppx: lovenox See the residents documentation for details. I saw and evaluated the patient regarding the edmondson portions of this evaluation and agree with the residents findings and plans as written. I have reviewed the patients past medical/surgical and social histories and updated as appropriate. Parts of this note were created using [employer] voice recognition software program. While efforts were made to correct any mistakes made by this software, some mistakes, errors, and omissions may remain in the final note that were not caught when the note was originally created. Plan of care was discussed and agreed upon with the patient as specifically documented in the above note. An opportunity to ask questions with explanation was provided. Patient voiced understanding on all information reviewed and discussed. (Addi Eaton MD) Physician Certification 2 Midnight Certification Type: Admission for Inpatient Services Order for Inpatient Services The services are ordered in accordance with Medicare regulations or non- Medicare payer requirements, as applicable. In the case of services not specified as inpatient-only, they are appropriately provided as inpatient services in accordance with the 2-midnight benchmark. Estimated LOS (days): 2 days is the estimated time the patient will need to remain in the hospital, assuming treatment plan goals are met and no additional complications. Post-Hospital Plan: Home (Ian Ty MD, R2) Problem Qualifiers (1) HTN (hypertension): Qualified Codes: I10 - Essential (primary) hypertension (2) Diabetes mellitus: Qualified Codes: E11.9 - Type 2 diabetes mellitus without complications (3) Conjunctivitis: Qualified Codes: H10.33 - Unspecified acute conjunctivitis, bilateral Ian Ty MD, R2 Aug 24, 2017 17:10 Addi Eaton MD Aug 25, 2017 13:07
[2017-08-24] MEDS ORDERED: SODIUM CHLORIDE 0.9% FLUSH 10 ML FLUSH IV FLUSH PRN (17:45)
[2017-08-24] MEDS ORDERED: ONDANSETRON HCL 4 MG/2 ML VIAL IV PUSH PRN (17:45)
[2017-08-24] MEDS ORDERED: GLUCAGON 1 MG/ML VIAL OTHER PRN (18:00)
[2017-08-24] MEDS ORDERED: LORazepam 2 MG/ML VIAL IV PUSH PRN ×5 (18:00)
[2017-08-24] MEDS ORDERED: ENOXAPARIN SODIUM 40 MG/0.4 ML SYRINGE SQ SCH (18:00)
[2017-08-24] MEDS ORDERED: FLUMAZENIL 0.5 MG/5 ML VIAL IV PUSH PRN (18:00)
[2017-08-24] MEDS ORDERED: cloNIDine HCL 0.1 MG TAB PO PRN (18:00)
[2017-08-24] MEDS ORDERED: POTASSIUM CHLORIDE 20 MEQ CONTROLLED RELEASE TAB PO ONE (18:00)
[2017-08-24] MEDS ORDERED: DEXTROSE 50% IN WATER 50 ML VIAL(D50) IV PUSH PRN (18:00)
[2017-08-24] MEDS: INSULIN ASPART SUPPLEMENTAL SCALE SQ SCH (21:00)
--- NOTE | 2017-08-24 22:07 | EKG ---
Date Performed: 08/24/2017 Time Performed: 13:58:46 PTAGE: 62 years EKG: SINUS TACHYCARDIA MARKED LEFT AXIS DEVIATION PATTERN CONSISTENT WITH PULMONARY DISEASE ABNO RMAL ECG PREVIOUS TRACING : 06/14/2017 10.22 Compared to the previous tracing, rate has increased, QTc h as normalized DOCTOR: Gregorio Flower Interpretating Date/Time 08/24/2017 22:07:11
[2017-08-24 22:09] LABS: BICARBONATE 24.7 MEQ/L (21.0-32.0); CALCIUM 7.7 MG/DL (8.5-10.1); CREATININE 0.75 MG/DL (0.60-1.30)
[2017-08-24] MEDS ORDERED: CALCIUM CARBONATE 1.25 GM (CA 500 MG) TAB PO ONE (22:30)
[2017-08-24] MEDS ORDERED: POTASSIUM CHLORIDE 10 MEQ CAP PO ONE (22:30)
[2017-08-24] MEDS: SODIUM CHLORIDE 0.9% FLUSH 10 ML FLUSH IV FLUSH SCH (22:36)
[2017-08-24] MEDS: POLYMYXIN/TRIMETHOPRIM OPHT SOLN 10 ML BTL EACH EYE SCH (22:36)
[2017-08-25] VITALS (9 sets, daily range): BP systolic 112–150; BP diastolic 62–82; PULSE 59–77; RESP 18–19; TEMP 97–99.3; O2SAT 94–97
[2017-08-25] MEDS: SODIUM CHLOR 0.9% 1000 ML INJ 1,000 ML IV SCH ×2 (00:15→08:15)
[2017-08-25] MEDS: INSULIN ASPART SUPPLEMENTAL SCALE SQ SCH ×4 (07:29→23:04)
[2017-08-25 08:44] LABS: AUTOMATED NEUTROPHIL # 6.2 TH/MM3 (1.8-7.7); BASOPHIL % 0.2 % (0.0-2.0); EOSINOPHIL % 0.3 % (0.0-4.0); HEMOGLOBIN 14.6 GM/DL (13.0-17.0); LYMPH % 9.9 % (9.0-44.0); LYMPHOCYTE # 0.7 TH/MM3 (1.0-4.8); MEAN CELL VOLUME 99.9 FL (80.0-100.0); MEAN CORPUSCULAR HEMOGLOBIN 36.5 PG (27.0-34.0); MEAN PLATELET VOLUME 9.6 FL (7.0-11.0); MONO % 4.8 % (0.0-8.0); MONOCYTE # 0.4 TH/MM3 (0-0.9); NEUT % 84.8 % (16.0-70.0); PLATELET COUNT 42 TH/MM3 (150-450); RED CELL DISTRIBUTION WIDTH 13.3 % (11.6-17.2); WHITE BLOOD COUNT 7.3 TH/MM3 (4.0-11.0)
[2017-08-25] MEDS: FOLIC ACID 1 MG TAB PO SCH (08:50)
[2017-08-25] MEDS: THIAMINE HCL 100 MG TAB PO SCH (08:50)
[2017-08-25] MEDS: LISINOPRIL 10 MG TAB PO SCH (08:51)
[2017-08-25] MEDS: MULTIVITAMINS/MINERALS THERAPEUTIC TAB PO SCH (08:51)
[2017-08-25] MEDS: SODIUM CHLORIDE 0.9% FLUSH 10 ML FLUSH IV FLUSH SCH ×2 (08:52→23:03)
[2017-08-25] MEDS: POLYMYXIN/TRIMETHOPRIM OPHT SOLN 10 ML BTL EACH EYE SCH ×4 (08:52→23:05)
[2017-08-25 08:59] LABS: MEAN CORPUSCULAR HGB CONC 36.6 % (32.0-36.0)
[2017-08-25 09:05] LABS: BICARBONATE 21.7 MEQ/L (21.0-32.0); CALCIUM 8.1 MG/DL (8.5-10.1); CREATININE 0.79 MG/DL (0.60-1.30)
[2017-08-25 09:48] LABS: BANDS 10 % (0-6); LYMPHOCYTES 7 % (9-44); MONOCYTES 2 % (0-8); NEUTROPHIL # MANUAL DIFF 6.6 TH/MM3 (1.8-7.7); POLYS (SEG NEUTROPHILS) 81 % (16-70)
--- NOTE | 2017-08-25 13:10 | MB ---
cc: ALVIN SOLIS M.D. DATE OF CONSULTATION: 08/25/2017. REASON FOR CONSULTATION: Seizure. HISTORY OF PRESENT ILLNESS: This is a 62-year-old man with a history of hypertension, diabetes and alcoholism who presents with a seizure. He states he woke up in the morning about two o'clock in the morning not feeling well. He told his family member and subsequently he was brought to the hospital and had apparently a seizure in the car without bladder or bowel loss or tongue biting. He denies ever having a seizure. He states his last drink was the night before and he usually drinks between a half a pint to one pint of liquor every night and has not had a problem. He states he has never had a withdrawal from alcohol as far as a seizure. He states he takes, I believe he stated it was lorazepam very rarely for anxiety due to the fact that he cares for a 7-year-old granddaughter and his 94-year-old mother. His primary care physician is Dr. Horvath. Currently he feels back to baseline. PAST MEDICAL HISTORY: 1. He has a history of hypertension. 2. Diabetes. 3. Hyperlipidemia. 4. Prostate cancer treated with prostatectomy in 2007. HOME MEDICINES: 1. Novolin 70/30. 2. Metformin. 3. Lisinopril. ALLERGIES: None reported. SOCIAL HISTORY: Drinks a pint a day. Tobacco is 1-1/2 packs per day. No illicit drugs. PHYSICAL EXAMINATION: VITAL SIGNS: On exam his vitals are temperature is 98.7, pulse 61, respiratory rate 18, blood pressure 133/73. NECK: The neck is supple. HEART: Regular. NEUROLOGICAL EXAMINATION: He is awake, alert, he is fluent. Pupils reactive. No nystagmus. Visual garcia are full. Face symmetrical. Tongue midline. No tongue biting noted. Motor - no tremors. No drift. No leg lag. Cerebellar is intact. Gait is withheld. LABS: Reviewed. Platelet count is now 42,000. Coag panel not done. Chemistries / liver function tests: ALT is 108. AST is 162. Random glucose 130 this morning. Calcium 8.1. Sodium on admission was 127 and today it is 138. Tox screen was negative but he has an ethanol level on 08/18 of 245. IMAGING STUDIES: CT head unremarkable. IMPRESSION: 1. Likely withdrawal seizure from alcohol. 2. Hyponatremia. RECOMMENDATIONS: At this point, his sodium level is normalized. Will have to continue to watch him for any withdrawal seizures. Benzodiazepine is mainstay here. I will not put him on antiepileptics. Go ahead and use either Ativan or Librium. The patient was counselled on alcoholism and stopping his drinking pattern due to multiple risk factors. He seems to understand but not clear if he is willing to do so. EEG was done. If he is stable from my perspective, can be discharged home on some Librium. Continue current care. MD RAFAELA Navas/RICARDO /12:33 PM /12:45 PM
--- NOTE | 2017-08-25 14:02 | HHI.HP ---
[facility] Service Family Medicine Primary Care Physician Dada Horvath MD, PhD Admission Diagnosis new onset seizure, hyponatremia, hypokalemia, elevated liver enzymes Diagnoses: (1) Seizures (2) Hyponatremia (3) Chronic alcohol abuse (4) HTN (hypertension) (5) Diabetes mellitus (6) Thrombocytopenia (7) Conjunctivitis (8) FEN International Travel<30 Days: No Contact w/Intl Traveler<30days: No Known Affected Area: No History of Present Illness 62-year-old male with history of hypertension, diabetes, alcoholism presents with seizure. Patient is doing much better today. No seizure activity since yesterday. Denied any prior seizure. Initial seizures witnessed by his daughter. Does not have any complaints today. Seems to be very peaceful watching TV. Denied any symptoms of chest pain, shortness of breath, or abdominal discomfort. Does have very long history of alcohol abuse. Has been recently undergoing some significant stressors in his life, which seemed to make in his symptoms worse. Has been having a good appetite, would like to eat more food. His PCP is Dr. Horvath. Review of Systems Constitutional: DENIES: Fatigue, Fever, Weight gain, Weight loss, Chills, Dizziness, Change in appetite Eyes: DENIES: Blurred vision, Diplopia, Eye inflammation Respiratory: DENIES: Apneas, Cough, Snoring, Wheezing, Hemoptysis, Sputum production Cardiovascular: DENIES: Chest pain, Palpitations, Syncope, Dyspnea on Exertion , PND Gastrointestinal: DENIES: Abdominal pain, Black stools, Bloody stools, Constipation Genitourinary: DENIES: Sexual dysfunction, Urinary frequency, Urinary incontinence Musculoskeletal: DENIES: Joint pain, Muscle aches, Stiffness Integumentary: DENIES: Abnormal pigmentation, Nail changes Hematologic/lymphatic: DENIES: Bruising Psychiatric: DENIES: Anxiety, Confusion, Mood changes Past Family Social History Past Medical History HTN DM Hyperlipidemia Prostate cancer-cured after prostatectomy Past Surgical History Proctectomy 2008 Tonsillectomy Cataracts R arm ORIF Allergies: Coded Allergies: No Known Allergies (Verified Allergy, Unknown, 08/24/17) Family History Mother-living, healthy Father-32y, DM Social History Used to be hunt Alcohol: 1 pint liquor daily Tobacco: 1.5 PPD (40y) Illicit drugs: denies Physical Exam Vital Signs Vital Signs Date Time Temp Pulse Resp B/P (MAP) Pulse Ox O2 Delivery O2 Flow Rate FiO2 08/25/17 12:46 62 08/25/17 12:00 98.7 61 18 133/73 (93) 96 08/25/17 10:42 71 08/25/17 08:00 98.8 73 19 135/74 (94) 96 08/25/17 04:00 97.0 71 18 131/69 (89) 94 08/24/17 23:00 99 08/24/17 20:00 97.9 75 20 127/79 (95) 95 08/24/17 19:47 96 08/24/17 16:31 99 18 113/79 (90) 95 Room Air 08/24/17 14:11 97 Room Air 08/24/17 13:59 98.5 100 18 167/93 (117) 97 Physical Exam GENERAL: This is a well-nourished, well-developed patient, in no apparent distress. SKIN: No rashes, ecchymoses or lesions. Cool and dry. HEAD: Atraumatic. Normocephalic. No temporal or scalp tenderness. EYES: Pupils equal round and reactive. Extraocular motions intact. No scleral icterus. No injection or drainage. ENT: Nose without bleeding, purulent drainage or septal hematoma. Throat without erythema, tonsillar hypertrophy or exudate. Uvula midline. Airway patent. NECK: Trachea midline. No JVD or lymphadenopathy. Supple, nontender, no meningeal signs. CARDIOVASCULAR: Regular rate and rhythm without murmurs, gallops, or rubs. RESPIRATORY: Clear to auscultation. Breath sounds equal bilaterally. No wheezes , rales, or rhonchi. GASTROINTESTINAL: Abdomen soft, non-tender, nondistended. No hepato-splenomegaly , or palpable masses. No guarding. MUSCULOSKELETAL: Extremities without clubbing, cyanosis, or edema. No joint tenderness, effusion, or edema noted. No calf tenderness. Negative Homans sign bilaterally. NEUROLOGICAL: Awake and alert. Cranial nerves II through XII intact. Motor and sensory grossly within normal limits. Five out of 5 muscle strength in all muscle groups. Normal speech. Laboratory Laboratory Tests Test 08/24/17 14:20 08/24/17 21:15 08/25/17 07:39 White Blood Count 8.0 7.3 Red Blood Count 4.27 4.00 Hemoglobin 15.2 14.6 Hematocrit 43.3 40.0 Mean Corpuscular Volume 101.3 99.9 Mean Corpuscular Hemoglobin 35.5 36.5 Mean Corpuscular Hemoglobin Concent 35.1 36.6 Red Cell Distribution Width 13.0 13.3 Platelet Count 58 42 Mean Platelet Volume 9.5 9.6 Neutrophils (%) (Auto) 81.1 84.8 Lymphocytes (%) (Auto) 11.9 9.9 Monocytes (%) (Auto) 6.4 4.8 Eosinophils (%) (Auto) 0.2 0.3 Basophils (%) (Auto) 0.4 0.2 Neutrophils # (Auto) 6.5 6.2 Lymphocytes # (Auto) 1.0 0.7 Monocytes # (Auto) 0.5 0.4 Eosinophils # (Auto) 0.0 0.0 Basophils # (Auto) 0.0 0.0 CBC Comment AUTO DIFF AUTO DIFF Differential Total Cells Counted 100 100 Neutrophils % (Manual) 71 81 Band Neutrophils % 13 10 Lymphocytes % 10 7 Monocytes % 4 2 Basophils % 1 Neutrophils # (Manual) 6.8 6.6 Metamyelocytes 1 Differential Comment FINAL DIFF MANUAL FINAL DIFF MANUAL Platelet Estimate LOW LOW Platelet Morphology Comment NORMAL NORMAL Urine Color YELLOW Urine Turbidity CLEAR Urine pH 6.0 Urine Specific Inlet 1.025 Urine Protein 100 Urine Glucose (UA) 150 Urine Ketones 40 Urine Occult Blood SMALL Urine Nitrite NEG Urine Bilirubin NEG Urine Urobilinogen 4.0 Urine Leukocyte Esterase TRACE Urine RBC 1 Urine WBC 1 Urine Hyaline Casts 1 Urine Mucus FEW Microscopic Urinalysis Comment CATH-CULT NOT IND Blood Urea Nitrogen 5 5 6 Creatinine 1.03 0.75 0.79 Random Glucose 201 117 130 Total Protein 6.6 Albumin 4.2 Calcium Level 8.3 7.7 8.1 Alkaline Phosphatase 106 Aspartate Amino Transf (AST/SGOT) 162 Alanine Aminotransferase (ALT/SGPT) 108 Total Bilirubin 1.3 Sodium Level 127 136 138 Potassium Level 3.2 3.2 3.7 Chloride Level 91 101 104 Carbon Dioxide Level 23.1 24.7 21.7 Anion Gap 13 10 12 Estimat Glomerular Filtration Rate 73 106 99 Total Creatine Kinase 161 Troponin I LESS THAN 0.02 Urine Opiates Screen NEG Urine Barbiturates Screen NEG Urine Amphetamines Screen NEG Urine Benzodiazepines Screen NEG Urine Cocaine Screen NEG Urine Cannabinoids Screen NEG Ethyl Alcohol Level LESS THAN 3 Result Diagram: 08/25/17 0739 08/25/17 0739 Imaging Last Impressions Head CT 08/24/17 0000 Signed Impressions: Service Date/Time: Thursday, August 24, 2017 14:51 - CONCLUSION: Unremarkable study. MD Lele Crenshaw VTE Risk Assessment Lele VTE Risk Assessment: Mod/High Risk (score >= 2) Caprini Risk Assessment Model Point Value = 1 Point Value = 2 Point Value = 3 Point Value = 5 Age 41-60 Minor surgery BMI > 25 kg/m2 Swollen legs Varicose veins or History of unexplained or recurrent spontaneous Oral contraceptives or hormone replacement Sepsis (< 1 month) Serious lung disease, including pneumonia (< 1 month) Abnormal pulmonary function Acute myocardial infarction Congestive heart failure (< 1 month) History of inflammatory bowel disease Medical patient at bed rest Age 61-74 Arthroscopic surgery Major open surgery (> 45 min) Laparoscopic surgery (> 45 min) Malignancy Confined to bed (> 72 hours) Immobilizing plaster cast Central venous access Age >= 75 History of VTE Family history of VTE Factor V Leiden Prothrombin [id number] Lupus anticoagulant Anticardiolipin antibodies Elevated serum homocysteine Heparin-induced thrombocytopenia Other congenital or acquired thrombophilia Stroke (< 1 month) Elective arthroplasty Hip, pelvis, or leg fracture Acute spinal cord injury (< 1 month) Prophylaxis Regimen Total Risk Factor Score Risk Level Prophylaxis Regimen 0-1 Low Early ambulation 2 Moderate Order ONE of the following: *Sequential Compression Device (SCD) *Heparin 5000 units SQ BID 3-4 Higher Order ONE of the following medications: *Heparin 5000 units SQ TID *Enoxaparin/Lovenox 40 mg SQ daily (WT < 150 kg, CrCl > 30 mL/min) *Enoxaparin/Lovenox 30 mg SQ daily (WT < 150 kg, CrCl > 10-29 mL/min) *Enoxaparin/Lovenox 30 mg SQ BID (WT < 150 kg, CrCl > 30 mL/min) AND/OR *Sequential Compression Device (SCD) 5 or more Highest Order ONE of the following medications: *Heparin 5000 units SQ TID (Preferred with Epidurals) *Enoxaparin/Lovenox 40 mg SQ daily (WT < 150 kg, CrCl > 30 mL/min) *Enoxaparin/Lovenox 30 mg SQ daily (WT < 150 kg, CrCl > 10-29 mL/min) *Enoxaparin/Lovenox 30 mg SQ BID (WT < 150 kg, CrCl > 30 mL/min) AND *Sequential Compression Device (SCD) Assessment and Plan Assessment and Plan 62-year-old male with history of hypertension, diabetes, alcoholism presents with seizures. We'll admit for neurology workup and treatment. Problem List: (1) Seizures ICD Codes: R56.9 - Unspecified convulsions Status: Acute Plan: Patient doing significantly better today. No seizure activity since yesterday. Appreciate consult from neurology, which seems to believe seizure occurred from withdrawal. Spoke to the patient at length about alcohol cessation Placed on CIWA Patient tolerating by mouth diet well EEG performed We'll continue with all monitoring Consider discharging patient once symptoms resolved (2) Hyponatremia ICD Codes: E87.1 - Hypo-osmolality and hyponatremia Status: Acute Plan: Continue neuro checks Seems that his sodium has improved Stop any subsequent elevation of his sodium Has had hyponatremia episodes in the past Continue to monitor sodium (3) Chronic alcohol abuse ICD Codes: F10.10 - Alcohol abuse, uncomplicated Status: Acute Plan: Spoke to patient about cessation of alcohol Consult case management Hopeful that he'll quit (4) HTN (hypertension) ICD Codes: I10 - Essential (primary) hypertension Plan: Continue to monitor blood pressure Seems to have acceptable vitals at this time Renew home medication Place when necessary medications (5) Diabetes mellitus ICD Codes: E11.9 - Diabetes mellitus Status: Chronic Plan: Diabetic diet Hold patient metformin Place on insulin sliding scale (6) Thrombocytopenia ICD Codes: D69.6 - Thrombocytopenia, unspecified Status: Chronic Plan: Has had some decreased platelets in the past Consult heme/onc hold lovenox (7) Conjunctivitis ICD Codes: H10.9 - Unspecified conjunctivitis Plan: Symptoms are improving today Medications as needed (8) FEN Status: Acute Plan: Fluids: IVF in ED, monitor Sodium after Electrolytes: keep monitoring Nutrition: Diabetic Diet DVT ppx:scd I have reviewed the patients past medical/surgical and social histories and updated as appropriate. Parts of this note were created using [employer] voice recognition software program. While efforts were made to correct any mistakes made by this software, some mistakes, errors, and omissions may remain in the final note that were not caught when the note was originally created. Plan of care was discussed and agreed upon with the patient as specifically documented in the above note. An opportunity to ask questions with explanation was provided. Patient voiced understanding on all information reviewed and discussed. Physician Certification 2 Midnight Certification Type: Admission for Inpatient Services Order for Inpatient Services The services are ordered in accordance with Medicare regulations or non- Medicare payer requirements, as applicable. In the case of services not specified as inpatient-only, they are appropriately provided as inpatient services in accordance with the 2-midnight benchmark. Estimated LOS (days): 2 days is the estimated time the patient will need to remain in the hospital, assuming treatment plan goals are met and no additional complications. Post-Hospital Plan: Home Problem Qualifiers (1) HTN (hypertension): Qualified Codes: I10 - Essential (primary) hypertension (2) Diabetes mellitus: Qualified Codes: E11.9 - Type 2 diabetes mellitus without complications (3) Conjunctivitis: Qualified Codes: H10.33 - Unspecified acute conjunctivitis, bilateral Addi Eaton MD Aug 25, 2017 14:02
[2017-08-26] VITALS (10 sets, daily range): BP systolic 108–149; BP diastolic 67–81; PULSE 56–76; RESP 18–20; TEMP 97.6–99.5; O2SAT 95–96
[2017-08-26 07:51] LABS: AUTOMATED NEUTROPHIL # 5.4 TH/MM3 (1.8-7.7); BASOPHIL % 0.2 % (0.0-2.0); EOSINOPHIL # 0.1 TH/MM3 (0-0.4); EOSINOPHIL % 0.7 % (0.0-4.0); HEMATOCRIT 41.7 % (39.0-51.0); HEMOGLOBIN 14.9 GM/DL (13.0-17.0); LYMPH % 14.6 % (9.0-44.0); MEAN CELL VOLUME 100.5 FL (80.0-100.0); MEAN CORPUSCULAR HGB CONC 35.8 % (32.0-36.0); MEAN PLATELET VOLUME 10.2 FL (7.0-11.0); MONO % 5.6 % (0.0-8.0); MONOCYTE # 0.4 TH/MM3 (0-0.9); NEUT % 78.9 % (16.0-70.0); PLATELET COUNT 38 TH/MM3 (150-450); RED BLOOD COUNT 4.15 MIL/MM3 (4.50-5.90); RED CELL DISTRIBUTION WIDTH 13.1 % (11.6-17.2); WHITE BLOOD COUNT 6.9 TH/MM3 (4.0-11.0)
[2017-08-26] MEDS: INSULIN ASPART SUPPLEMENTAL SCALE SQ SCH ×4 (07:55→23:02)
[2017-08-26 08:22] LABS: ALBUMIN 3.2 GM/DL (3.4-5.0); ALKALINE PHOSPHATASE 83 U/L (45-117); ALT (GPT) 109 U/L (12-78); AST (GOT) 152 U/L (15-37); BICARBONATE 23.1 MEQ/L (21.0-32.0); BLOOD UREA NITROGEN 7 MG/DL (7-18); CALCIUM 8.3 MG/DL (8.5-10.1); CHLORIDE 105 MEQ/L (98-107); GLOMERULAR FILTRATION RATE 114 ML/MIN (>89); GLUCOSE,RANDOM 139 MG/DL (74-106); SODIUM (NA) 137 MEQ/L (136-145); TOTAL BILIRUBIN ADULT 0.9 MG/DL (0.2-1.0); TOTAL PROTEIN 5.8 GM/DL (6.4-8.2)
[2017-08-26] MEDS: POLYMYXIN/TRIMETHOPRIM OPHT SOLN 10 ML BTL EACH EYE SCH ×4 (09:16→22:23)
[2017-08-26] MEDS: LISINOPRIL 10 MG TAB PO SCH (09:17)
[2017-08-26] MEDS: MULTIVITAMINS/MINERALS THERAPEUTIC TAB PO SCH (09:17)
[2017-08-26] MEDS: FOLIC ACID 1 MG TAB PO SCH (09:17)
[2017-08-26] MEDS: THIAMINE HCL 100 MG TAB PO SCH (09:17)
[2017-08-26] MEDS: SODIUM CHLORIDE 0.9% FLUSH 10 ML FLUSH IV FLUSH SCH ×2 (09:18→22:23)
--- NOTE | 2017-08-26 09:57 | RADRPT ---
EXAM DATE/TIME: 08/26/2017 09:29 [place] COMPARISON: CHEST SINGLE AP, June 14, 2017, 10:36. INDICATIONS : Evaluate for lung cancer. RADIATION DOSE: 5.23 CTDIvol (mGy) MEDICAL HISTORY : Hypertension. Cardiovascular disease Diabetes mellitus type 1. prostate cancer SURGICAL HISTORY : Prostatectomy. ENCOUNTER: Initial ACUITY: 1 day PAIN SCALE: 0/10 LOCATION: chest TECHNIQUE: Volumetric scanning of the chest was performed. Using automated exposure control and adjustment of t he mA and/or kV according to patient size, radiation dose was kept as low as reasonably achievable to obtain optimal diagnostic quality images. DICOM format image data is available electronically for r eview and comparison. Follow-up recommendations for detected pulmonary nodules are based at a minimum on nodule size and pa tient risk factors according to Fleischner Society Guidelines. FINDINGS: LUNGS: There is linear scarring or atelectasis at the right lung base. PLEURAE: There are minimal pleural effusions. MEDIASTINUM: The heart and great vessels demonstrate no acute abnormality. There is no mediastinal or hilar lymph adenopathy. Coronary artery calcifications are present. AXILLAE: Within normal limits. No lymphadenopathy. MUSCULOSKELETAL: Within normal limits for patient age. MISCELLANEOUS: There is diffuse hepatic steatosis. CONCLUSION: 1. No lung mass. 2. Linear scarring or atelectasis at the right lung base. 3. Hepatic steatosis. Dimitris Mcghee MD on August 26, 2017 at 9:48 Board Certified Radiologist. This report was verified electronically.
[2017-08-26] MEDS ORDERED: POTASSIUM CHLORIDE 10 MEQ CAP PO ONE (10:00)
--- NOTE | 2017-08-26 10:32 | MG ---
cc: ALVIN SOLIS M.D. Lab No: [id number] Date: 08/26/2017 Age: 62 Sex: M Race: DATE OF : 1955 REFERRING: Karson In room 1513 with hyperventilation, photic, good effort, awake, drowsy, asleep study. CT unremarkable. Admitted with 2-minute history of generalized tonic-clonic seizure, history of alcoholism on vitamins and Prinivil and p.r.n. benzos. DESCRIPTION OF RECORD The patient has overall background of 9 Hz, 20-40 microvolts, symmetrical, fairly well-organized background. Photic stimulation does elicit a posterior driving response. Hyperventilation was then performed. Overall, symmetrical background, some artifact but well-organized, no epileptiform features. IMPRESSION Normal EEG without any epileptiform features in this one recording. Clinical correlation. MD RAFAELA Navas/VIRGINIE /9:50 AM /10:11 AM
--- NOTE | 2017-08-26 10:47 | HHI.FPPN ---
Subjective Remarks Patient seen and examined this point. No acute events overnight. Patient reports feeling well this morning. No complaints this morning. Denies any chest pain or shortness of breath. No new seizures. (Ian Ty MD, R2) Objective Vitals Vital Signs Date Time Temp Pulse Resp B/P (MAP) Pulse Ox O2 Delivery O2 Flow Rate FiO2 08/26/17 08:28 98.0 58 18 149/81 (103) 96 08/26/17 08:10 76 08/26/17 06:23 97.9 58 20 126/67 (86) 96 08/26/17 01:15 99.5 69 20 135/74 (94) 95 08/25/17 23:56 73 08/25/17 20:30 98.6 62 18 150/82 (104) 96 08/25/17 18:46 59 08/25/17 15:56 99.3 77 18 112/62 (79) 97 08/25/17 12:46 62 08/25/17 12:00 98.7 61 18 133/73 (93) 96 I/O 08/25/17 08/25/17 08/25/17 08/26/17 08/26/17 08/26/17 07:00 15:00 23:00 07:00 15:00 23:00 Intake Total 1470 ml Output Total 250 ml 1000 ml Balance 1220 ml -1000 ml Intake Oral 720 ml IV Total 750 ml Output Urine Total 250 ml 1000 ml # Voids 5 # Bowel Movements 0 (Ian Ty MD, R2) Result Diagram: 08/26/17 0652 08/26/17 0652 Objective Remarks GENERAL: NAD, sitting in bed eating breakfast CARDIOVASCULAR: Regular rate and rhythm. RESPIRATORY: No accessory muscle use. Clear to auscultation. Breath sounds equal bilaterally. GASTROINTESTINAL: Abdomen soft, non-tender, nondistended. MUSCULOSKELETAL: Extremities without clubbing, cyanosis, or edema. No obvious deformities. NEUROLOGICAL: Awake and alert. Normal speech. PSYCHIATRIC: Appropriate mood and affect; insight and judgment normal. (Ian Ty MD, R2) A/P Assessment and Plan 62-year-old male with history of hypertension, diabetes, alcoholism presents with seizures. We'll admit for neurology workup and treatment. Discharge Planning Pending neurology workup and heme workup (Ian Ty MD, R2) Problem List: (1) Seizures ICD Codes: R56.9 - Unspecified convulsions Status: Acute Plan: Patient doing significantly better today. No seizure activity since yesterday. Appreciate consult from neurology, which seems to believe seizure occurred from withdrawal. EEG-Normal -Spoke to the patient at length about alcohol cessation -Placed on CIWA -Patient tolerating by mouth diet well -D/c home on Librium (2) Hyponatremia ICD Codes: E87.1 - Hypo-osmolality and hyponatremia Status: Acute Plan: Na 137 today, remaining stable CT chest done to rule out lung mass-negative -Monitor neuro status -Continue to monitor sodium (3) Chronic alcohol abuse ICD Codes: F10.10 - Alcohol abuse, uncomplicated Status: Acute Plan: Spoke to patient about cessation of alcohol Consult case management Hopeful that he'll quit (4) HTN (hypertension) ICD Codes: I10 - Essential (primary) hypertension Plan: Continue to monitor blood pressure Seems to have acceptable vitals at this time Renew home medication Place when necessary medications (5) Diabetes mellitus ICD Codes: E11.9 - Diabetes mellitus Status: Chronic Plan: Diabetic diet Hold patient metformin Place on insulin sliding scale (6) Thrombocytopenia ICD Codes: D69.6 - Thrombocytopenia, unspecified Status: Chronic Plan: Has had some decreased platelets in the past Consult heme/onc-appreciate recs hold lovenox (7) Conjunctivitis ICD Codes: H10.9 - Unspecified conjunctivitis Plan: Symptoms are improving today Continue polymixin eye drops (8) FEN Status: Acute Plan: Fluids: PO Electrolytes: keep monitoring Nutrition: Diabetic Diet DVT ppx:scd (Ian Ty MD, R2) Problem List: (1) Seizures ICD Codes: R56.9 - Unspecified convulsions Status: Acute Plan: Patient doing significantly better today. No seizure activity since yesterday. Appreciate consult from neurology, which seems to believe seizure occurred from withdrawal. EEG-Normal -Spoke to the patient at length about alcohol cessation -Placed on CIWA -Patient tolerating by mouth diet well -D/c home on Librium (2) Hyponatremia ICD Codes: E87.1 - Hypo-osmolality and hyponatremia Status: Acute Plan: Na 137 today, remaining stable CT chest done to rule out lung mass-negative -Monitor neuro status -Continue to monitor sodium (3) Chronic alcohol abuse ICD Codes: F10.10 - Alcohol abuse, uncomplicated Status: Acute Plan: Spoke to patient about cessation of alcohol Consult case management Hopeful that he'll quit (4) HTN (hypertension) ICD Codes: I10 - Essential (primary) hypertension Plan: Continue to monitor blood pressure Seems to have acceptable vitals at this time Renew home medication Place when necessary medications (5) Diabetes mellitus ICD Codes: E11.9 - Diabetes mellitus Status: Chronic Plan: Diabetic diet Hold patient metformin Place on insulin sliding scale (6) Thrombocytopenia ICD Codes: D69.6 - Thrombocytopenia, unspecified Status: Chronic Plan: Has had some decreased platelets in the past Consult heme/onc-appreciate recs hold lovenox (7) Conjunctivitis ICD Codes: H10.9 - Unspecified conjunctivitis Plan: Symptoms are improving today Continue polymixin eye drops (8) FEN Status: Acute Plan: Fluids: PO Electrolytes: keep monitoring Nutrition: Diabetic Diet DVT ppx:scd See the residents documentation for details. I saw and evaluated the patient regarding the edmondson portions of this evaluation and agree with the residents findings and plans as written. Parts of this note were created using [employer] voice recognition software program. While efforts were made to correct any mistakes made by this software, some mistakes, errors, and omissions may remain in the final note that were not caught when the note was originally created. (Addi Eaton MD) Problem Qualifiers (1) HTN (hypertension): Qualified Codes: I10 - Essential (primary) hypertension (2) Diabetes mellitus: Qualified Codes: E11.9 - Type 2 diabetes mellitus without complications (3) Conjunctivitis: Qualified Codes: H10.33 - Unspecified acute conjunctivitis, bilateral Ian Ty MD, R2 Aug 26, 2017 10:47 Addi Eaton MD Aug 27, 2017 13:06
--- NOTE | 2017-08-26 13:12 | MB ---
cc: NIKI GARCIA MD DATE OF CONSULTATION 08/26/2017 DATE OF 1955 CHIEF COMPLAINT Thrombocytopenia HISTORY OF PRESENT ILLNESS Mr. South is a 62-year-old man with a history of hypertension, diabetes, alcohol abuse, prostate cancer treated with prostatectomy in 2007 who was admitted to the hospital on August 24, 2017 after he presented with a seizure at home. Seizures is described as a two-minute tonic-clonic seizure that happened in the car while driving to the hospital. Daughter was bringing him to the hospital because he did altered mental status. Imaging studies on admission include a head CT which was with no acute abnormalities and the chest CT was no lung mass. Linear scarring atelectasis of the right lung base and hepatic steatosis. LABORATORY DATA Laboratory studies with a creatinine of 0.7, total bili of 0.9, AST elevated at 152, ALT elevated at 109, total protein is 5.8 and albumen is 3.2. The urine drug screen was negative on admission. Ethyl alcohol was less than 3. The patient reports that he is currently back to his normal state of health. REVIEW OF SYSTEMS As mentioned above, otherwise negative. PAST MEDICAL HISTORY 1. Hypertension 2. Diabetes 3. Hyperlipidemia 4. Prostate cancer status post prostatectomy in 2007. PAST SURGICAL HISTORY 1. Prostatectomy 2007 2. Tonsillectomy 3. Bilateral cataract surgery 4. Right arm orthopedic surgery FAMILY HISTORY No family history of blood disorders. ALLERGIES No known drug allergies. SOCIAL HISTORY The patient currently is not working. 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 He was previously a hunt. He drinks one pint of hard liquor daily. He smokes about a pack a day. He denies illicit drug use. MEDICATIONS Current medications include: 1. Clonidine 2. Folic acid 3. Insulin 4. Lisinopril 5. CIWA protocol 6. Multivitamins 7. Zofran 8. Thiamine LABORATORY STUDIES White blood cell count of 6.9, hemoglobin of 14.9, MCV of 100.5, platelet count of 38,000. On differential from admission, he did have bandemia present. Differentials otherwise within normal limits. Hemoglobin is roughly at baseline, but red cells are macrocytic. Platelet count is variable in the past ranging from in 2017, prior to this hospital stay, a low value of 50,[address] up to 152,000. CT scan of the abdomen and pelvis that was done on June 14 with no acute abnormality and hepatic steatosis. Spleen is a normal size. ASSESSMENT/PLAN Thrombocytopenia in a patient with macrocytosis and alcohol abuse. Will check vitamin studies to include vitamin B12, folate, iron profile, ferritin. Will check haptoglobin and LDH to ensure hemolysis is not occurring, although do not suspect this. Peripheral blood smear per pathology review has been ordered. 4T score is low. Do not suspect heparin induced thrombocytopenia at this time. We will check coag's. Suspect TCP due to alcohol toxicity. Alcohol itself can also be directly toxic to the bone marrow. Will continue to follow platelet trend. MD CESAR Rivera/SYMONE /12:31 PM /12:47 PM DOMINGO
[2017-08-26] MEDS: LORazepam 1 MG TAB PO PRN (14:35)
[2017-08-26 17:22] LABS: INTERNATIONAL NORMALIZED RATIO 1.1 RATIO; PROTHROMBIN TIME - PATIENT 11.2 SEC (9.8-11.6)
[2017-08-26 18:07] LABS: IRON (FE) 30 MCG/DL (65-175)
[2017-08-26 18:32] LABS: % SATURATION IRON PROFILE 12.5 % (20-50); FERRITIN 480 NG/ML (26-388); LDH SERUM 390 U/L (87-241); TOTAL IRON BINDING CAPACITY 241 MCG/DL (250-450)
[2017-08-26 18:34] LABS: FOLATE GREATER THAN 20.0 NG/ML (3.1-17.5)
[2017-08-26] MEDS: LORazepam 2 MG TAB PO PRN (22:23)
[2017-08-27] VITALS (7 sets, daily range): BP systolic 105–151; BP diastolic 63–76; PULSE 55–78; RESP 18–20; TEMP 97.1–98.9; O2SAT 95–99
[2017-08-27] MEDS: LORazepam 2 MG TAB PO PRN (03:18)
[2017-08-27 07:01] LABS: AUTOMATED NEUTROPHIL # 3.9 TH/MM3 (1.8-7.7); BASOPHIL % 0.2 % (0.0-2.0); EOSINOPHIL # 0.1 TH/MM3 (0-0.4); EOSINOPHIL % 1.6 % (0.0-4.0); HEMATOCRIT 41.5 % (39.0-51.0); HEMOGLOBIN 14.9 GM/DL (13.0-17.0); LYMPH % 16.7 % (9.0-44.0); LYMPHOCYTE # 0.9 TH/MM3 (1.0-4.8); MEAN CELL VOLUME 101.8 FL (80.0-100.0); MEAN CORPUSCULAR HEMOGLOBIN 36.5 PG (27.0-34.0); MEAN CORPUSCULAR HGB CONC 35.9 % (32.0-36.0); MEAN PLATELET VOLUME 10.6 FL (7.0-11.0); MONO % 9.4 % (0.0-8.0); MONOCYTE # 0.5 TH/MM3 (0-0.9); NEUT % 72.1 % (16.0-70.0); PLATELET COUNT 45 TH/MM3 (150-450); RED BLOOD COUNT 4.08 MIL/MM3 (4.50-5.90); RED CELL DISTRIBUTION WIDTH 13.4 % (11.6-17.2); WHITE BLOOD COUNT 5.4 TH/MM3 (4.0-11.0)
[2017-08-27 07:23] LABS: ALBUMIN 3.1 GM/DL (3.4-5.0); AST (GOT) 95 U/L (15-37); BICARBONATE 24.8 MEQ/L (21.0-32.0); BLOOD UREA NITROGEN 8 MG/DL (7-18); CALCIUM 8.6 MG/DL (8.5-10.1); CHLORIDE 107 MEQ/L (98-107); CREATININE 0.69 MG/DL (0.60-1.30); GLOMERULAR FILTRATION RATE 116 ML/MIN (>89); GLUCOSE,RANDOM 213 MG/DL (74-106); SODIUM (NA) 140 MEQ/L (136-145)
[2017-08-27 07:27] LABS: ALKALINE PHOSPHATASE 83 U/L (45-117); ALT (GPT) 94 U/L (12-78); TOTAL BILIRUBIN ADULT 0.6 MG/DL (0.2-1.0); TOTAL PROTEIN 5.8 GM/DL (6.4-8.2)
[2017-08-27] MEDS: INSULIN ASPART SUPPLEMENTAL SCALE SQ SCH ×4 (08:42→22:23)
[2017-08-27] MEDS: MULTIVITAMINS/MINERALS THERAPEUTIC TAB PO SCH (08:42)
[2017-08-27] MEDS: FOLIC ACID 1 MG TAB PO SCH (08:42)
[2017-08-27] MEDS: THIAMINE HCL 100 MG TAB PO SCH (08:42)
[2017-08-27] MEDS: POLYMYXIN/TRIMETHOPRIM OPHT SOLN 10 ML BTL EACH EYE SCH ×4 (08:43→22:17)
[2017-08-27] MEDS: LISINOPRIL 10 MG TAB PO SCH (08:43)
[2017-08-27] MEDS: SODIUM CHLORIDE 0.9% FLUSH 10 ML FLUSH IV FLUSH SCH ×2 (08:44→22:16)
--- NOTE | 2017-08-27 08:47 | PD.ONC.PN ---
Subjective Subjective Remarks AFebrile overnight. Patient slept well overnight. Denies bleeding. Wants to know when he can go home. Objective Data Date Time Temp Pulse Resp B/P (MAP) Pulse Ox O2 Delivery O2 Flow Rate FiO2 08/27/17 08:15 98.4 65 20 105/65 (78) 95 08/27/17 04:00 97.1 66 18 108/63 (78) 98 08/27/17 00:00 98.1 66 18 112/71 (85) 97 08/26/17 23:00 65 08/26/17 20:00 98.4 65 18 108/70 (83) 96 08/26/17 16:30 98.1 68 18 137/70 (92) 96 08/26/17 16:00 56 08/26/17 12:27 73 08/26/17 12:04 97.6 57 18 144/77 (99) 96 Result Diagram: 08/27/17 0620 08/27/17 0620 Laboratory Results Laboratory Tests Test 08/26/17 16:22 08/27/17 06:20 Haptoglobin LESS THAN 10 MG/DL Prothrombin Time 11.2 SEC Prothromb Time International Ratio 1.1 RATIO Activated Partial Thromboplast Time 25.8 SEC Iron Level 30 MCG/DL Total Iron Binding Capacity 241 MCG/DL Percent Iron Saturation 12.5 % Ferritin 480 NG/ML Lactate Dehydrogenase 390 U/L Vitamin B12 Level 834 PG/ML Folate GREATER THAN 20.0 NG/ML White Blood Count 5.4 TH/MM3 Red Blood Count 4.08 MIL/MM3 Hemoglobin 14.9 GM/DL Hematocrit 41.5 % Mean Corpuscular Volume 101.8 FL Mean Corpuscular Hemoglobin 36.5 PG Mean Corpuscular Hemoglobin Concent 35.9 % Red Cell Distribution Width 13.4 % Platelet Count 45 TH/MM3 Mean Platelet Volume 10.6 FL Neutrophils (%) (Auto) 72.1 % Lymphocytes (%) (Auto) 16.7 % Monocytes (%) (Auto) 9.4 % Eosinophils (%) (Auto) 1.6 % Basophils (%) (Auto) 0.2 % Neutrophils # (Auto) 3.9 TH/MM3 Lymphocytes # (Auto) 0.9 TH/MM3 Monocytes # (Auto) 0.5 TH/MM3 Eosinophils # (Auto) 0.1 TH/MM3 Basophils # (Auto) 0.0 TH/MM3 CBC Comment AUTO DIFF Differential Comment AUTO DIFF CONFIRMED Platelet Estimate LOW Platelet Morphology Comment NORMAL Blood Urea Nitrogen 8 MG/DL Creatinine 0.69 MG/DL Random Glucose 213 MG/DL Total Protein 5.8 GM/DL Albumin 3.1 GM/DL Calcium Level 8.6 MG/DL Alkaline Phosphatase 83 U/L Aspartate Amino Transf (AST/SGOT) 95 U/L Alanine Aminotransferase (ALT/SGPT) 94 U/L Total Bilirubin 0.6 MG/DL Sodium Level 140 MEQ/L Potassium Level 3.5 MEQ/L Chloride Level 107 MEQ/L Carbon Dioxide Level 24.8 MEQ/L Anion Gap 8 MEQ/L Estimat Glomerular Filtration Rate 116 ML/MIN Administered Medications Medications (Trade) Dose Ordered Sig/Kelsey Route PRN Reason Start Time Stop Time Status Last Admin Dose Admin Sodium Chloride 1,000 ml @ 125 mls/hr Q8H IV 08/24/17 16:15 Future Hold 08/25/17 00:15 Sodium Chloride (NS Flush) 2 ml BID IV FLUSH 08/24/17 21:00 08/26/17 22:23 Insulin Aspart (NovoLOG SUPPLEMENTAL SCALE) 1 ACHS SLIDING SCALE SQ 08/24/17 21:00 08/26/17 23:02 Folic Acid (Folate) 1 mg DAILY PO 08/25/17 09:00 08/30/17 08:59 08/26/17 09:17 Thiamine HCl (Vitamin B1) 100 mg DAILY PO 08/25/17 09:00 08/26/17 09:17 Multivitamins/ Minerals Therapeutic (Theragran M Tab) 1 tab DAILY PO 08/25/17 09:00 08/30/17 08:59 08/26/17 09:17 Lorazepam (Ativan) 1 mg Q4H PRN PO CIWA 8 - 10 08/24/17 18:00 08/26/17 14:35 Lorazepam (Ativan) 2 mg Q2H PRN PO CIWA 11-14 08/24/17 18:00 08/27/17 03:18 Lisinopril (Prinivil) 10 mg DAILY PO 08/25/17 09:00 08/26/17 09:17 Polymyxin/ Trimethoprim Sulfate (Polytrim Opht Soln) 1 drop QID EACH EYE 08/24/17 21:00 08/26/17 22:23 Objective Remarks GENERAL: Middle aged male sitting up in bed in nad. SKIN: Warm and dry. HEAD: Normocephalic. EYES: No injection or drainage. NECK: Supple, trachea midline. CARDIOVASCULAR: Regular rate and rhythm RESPIRATORY: Breath sounds equal bilaterally. No accessory muscle use. GASTROINTESTINAL: Abdomen soft, non-tender, nondistended. EXTREMITIES: No cyanosis NEUROLOGICAL: awake and alert, normal speech. Assessment/Plan Problem List: (1) Thrombocytopenia ICD Codes: D69.6 - Thrombocytopenia, unspecified Status: Chronic Plan: --Thrombocytopenia in a patient with macrocytosis and alcohol abuse. --vitamin B12, folate WN: --iron studies show low serum iron, low TIBC, low % saturation and elevated ferritin-->more consistent with anemia of chronic disease --haptoglobin/LDH-->LDH elevated, haptoglobin low, bilirubin WNL, haptoglobin may be low d/t poor synthetic liver function associated with alcohol abuse. -- Peripheral blood smear per pathology review is pending --hepatitis panel pending --HIV pending. --Do not suspect heparin induced thrombocytopenia at this time. Assessment 62-year-old male with prostate cancer, admitted with seizure. Hematology consulted for thrombocytopenia history of hypertension, diabetes, alcohol abuse --s/p prostatectomy in 2007 Plan 1. check u/s liver for cirrhosis/splenomegaly 2. monitor CBC. Attending Statement The exam, history, and the medical decision-making described in the above note were completed with the assistance of the mid-level provider. I reviewed and agree with the findings presented. I attest that I had a [id number] encounter with the patient on the same day, and personally performed and documented my assessment and findings in the medical record. 62 yoM with etoh abuse admitted with AMS and new onset seizure. Hematology consulted for evaluation of thrombocytopenia. Macrocytosis. Vitamin B12, folate are replete , chronic inflammation per iron profile. Elevated transaminases, low haptoglobin consistent with liver disease/injury. No abnormalities of liver on abdominal ultrasound. Previously with no splenomegaly. ETOH is directly toxic to bone marrow. Counseled on cessation. Continue to trend in outpatient setting. Sandra Peralta Aug 27, 2017 08:47 Christie Molina MD Aug 28, 2017 00:55
[2017-08-27] MEDS: LORazepam 1 MG TAB PO PRN ×3 (09:36→22:24)
--- NOTE | 2017-08-27 11:25 | HHI.FPPN ---
Subjective Remarks Patient seen and examined this morning. Patient states he feels well morning. No nausea, vomiting, fever, chills, abdominal pain, chest pain, shortness of breath. He states he is eager to go home, and is unsure if he wants to stay for the liver ultrasound today. We spoke about his upcoming liver ultrasound, thrombocytopenia, and the risks associated with leaving. He stated he wished to return home and would think about if he is going to leave against medical advice. (Chas Leiva MD R1) Objective Vitals Vital Signs Date Time Temp Pulse Resp B/P (MAP) Pulse Ox O2 Delivery O2 Flow Rate FiO2 08/27/17 08:15 98.4 65 20 105/65 (78) 95 08/27/17 08:00 55 08/27/17 04:00 97.1 66 18 108/63 (78) 98 08/27/17 00:00 98.1 66 18 112/71 (85) 97 08/26/17 23:00 65 08/26/17 20:00 98.4 65 18 108/70 (83) 96 08/26/17 16:30 98.1 68 18 137/70 (92) 96 08/26/17 16:00 56 08/26/17 12:27 73 08/26/17 12:04 97.6 57 18 144/77 (99) 96 I/O 08/26/17 08/26/17 08/26/17 08/27/17 08/27/17 08/27/17 07:00 15:00 23:00 07:00 15:00 23:00 Intake Total 480 ml Output Total 1000 ml 1100 ml Balance -1000 ml -620 ml Intake Oral 480 ml Output Urine Total 1000 ml 1100 ml # Voids 2 2 # Bowel Movements 1 0 0 (Chas Leiva MD R1) Result Diagram: 08/27/17 0620 08/27/17 0620 Objective Remarks GENERAL: NAD, sitting in bed eating breakfast CARDIOVASCULAR: Regular rate and rhythm. RESPIRATORY: No accessory muscle use. Clear to auscultation. Breath sounds equal bilaterally. GASTROINTESTINAL: Abdomen soft, non-tender, nondistended. MUSCULOSKELETAL: Extremities without clubbing, cyanosis, or edema. No obvious deformities. NEUROLOGICAL: Awake and alert. Normal speech. PSYCHIATRIC: Appropriate mood and affect; insight and judgment normal. (Chas Leiva MD R1) A/P Assessment and Plan 62-year-old male with history of hypertension, diabetes, alcoholism presents with seizures. We'll admit for neurology workup and treatment. Discharge Planning Pending neurology workup and heme workup, (Chas Leiva MD R1) Problem List: (1) Seizures ICD Codes: R56.9 - Unspecified convulsions Status: Acute Plan: Patient doing significantly better today. No seizure activity since yesterday. Appreciate consult from neurology, which seems to believe seizure occurred from withdrawal. EEG-Normal -Spoke to the patient at length about alcohol cessation -Placed on CIWA -Patient tolerating by mouth diet well -D/c home on Librium (2) Hyponatremia ICD Codes: E87.1 - Hypo-osmolality and hyponatremia Status: Acute Plan: Na 140 today, remaining stable CT chest done to rule out lung mass-negative -Monitor neuro status -Continue to monitor sodium (3) Thrombocytopenia ICD Codes: D69.6 - Thrombocytopenia, unspecified Status: Chronic Plan: Has had some decreased platelets in the past Consult heme/onc-appreciate recs * Ultrasound of liver today for cirrhosis/splenomegaly * Monitor CBC hold lovenox (4) Chronic alcohol abuse ICD Codes: F10.10 - Alcohol abuse, uncomplicated Status: Acute Plan: Spoke to patient about cessation of alcohol Consult case management Hopeful that he'll quit (5) HTN (hypertension) ICD Codes: I10 - Essential (primary) hypertension Plan: Continue to monitor blood pressure Seems to have acceptable vitals at this time Renew home medication Place when necessary medications (6) Diabetes mellitus ICD Codes: E11.9 - Diabetes mellitus Status: Chronic Plan: Diabetic diet Hold patient metformin Place on insulin sliding scale (7) Conjunctivitis ICD Codes: H10.9 - Unspecified conjunctivitis Plan: Symptoms are improving today Continue polymixin eye drops (8) FEN Status: Acute Plan: Fluids: PO Electrolytes: keep monitoring Nutrition: Diabetic Diet DVT ppx:scd (Chas Leiva MD R1) Problem List: (1) Seizures ICD Codes: R56.9 - Unspecified convulsions Status: Acute Plan: Patient doing significantly better today. No seizure activity since yesterday. Appreciate consult from neurology, which seems to believe seizure occurred from withdrawal. EEG-Normal -Spoke to the patient at length about alcohol cessation -Placed on CIWA -Patient tolerating by mouth diet well -D/c home on Librium (2) Hyponatremia ICD Codes: E87.1 - Hypo-osmolality and hyponatremia Status: Acute Plan: Na 140 today, remaining stable CT chest done to rule out lung mass-negative -Monitor neuro status -Continue to monitor sodium (3) Thrombocytopenia ICD Codes: D69.6 - Thrombocytopenia, unspecified Status: Chronic Plan: Has had some decreased platelets in the past Consult heme/onc-appreciate recs * Ultrasound of liver today for cirrhosis/splenomegaly * Monitor CBC hold lovenox (4) Chronic alcohol abuse ICD Codes: F10.10 - Alcohol abuse, uncomplicated Status: Acute Plan: Spoke to patient about cessation of alcohol Consult case management Hopeful that he'll quit (5) HTN (hypertension) ICD Codes: I10 - Essential (primary) hypertension Plan: Continue to monitor blood pressure Seems to have acceptable vitals at this time Renew home medication Place when necessary medications (6) Diabetes mellitus ICD Codes: E11.9 - Diabetes mellitus Status: Chronic Plan: Diabetic diet Hold patient metformin Place on insulin sliding scale (7) Conjunctivitis ICD Codes: H10.9 - Unspecified conjunctivitis Plan: Symptoms are improving today Continue polymixin eye drops (8) FEN Status: Acute Plan: Fluids: PO Electrolytes: keep monitoring Nutrition: Diabetic Diet DVT ppx:scd See the residents documentation for details. I saw and evaluated the patient regarding the edmondson portions of this evaluation and agree with the residents findings and plans as written. Parts of this note were created using [employer] voice recognition software program. While efforts were made to correct any mistakes made by this software, some mistakes, errors, and omissions may remain in the final note that were not caught when the note was originally created. Patient mentioned numerous times that he wanted to leave AMA. We discussed with him at length about consequences of leaving, and possible worsening of his symptoms. All of his questions were answered during discussion. (Addi Eaton MD) Problem Qualifiers (1) HTN (hypertension): Qualified Codes: I10 - Essential (primary) hypertension (2) Diabetes mellitus: Qualified Codes: E11.9 - Type 2 diabetes mellitus without complications (3) Conjunctivitis: Qualified Codes: H10.33 - Unspecified acute conjunctivitis, bilateral FailChas casanova MD R1 Aug 27, 2017 11:25 Addi Eaton MD Aug 27, 2017 13:14
[2017-08-27 11:52] LABS: HEPATITIS A AB IGM NEGATIVE (NEGATIVE); HEPATITIS B CORE AB IGM NEGATIVE (NEGATIVE); HEPATITIS B SURFACE ANTIGEN NEGATIVE (NEGATIVE); HEPATITIS C AB IgG NEGATIVE (NEGATIVE)
--- NOTE | 2017-08-27 17:03 | RADRPT ---
EXAM DATE/TIME: 08/27/2017 16:24 [facility] COMPARISON: US ABDOMEN - LIVER, October 09, 2016, 13:31. INDICATIONS : Abnormal labs/Cirrhosis. MEDICAL HISTORY : Hypertension. Cardiovascular disease Diabetes mellitus type 1. prostate cancer SURGICAL HISTORY : Prostatectomy. ENCOUNTER: Subsequent ACUITY: 1 day PAIN SCORE: 0/10 LOCATION: Bilateral upper quadrant MEASUREMENTS: LIVER: 18.9 cm length COMMON DUCT: 3 mm RIGHT KIDNEY: 12.6 x 4.6 x 5.3 cm SPLEEN: 11.7 cm length FINDINGS: LIVER: Ultrasound of the upper abdomen demonstrates increased echogenicity of the liver compatible with fatt y infiltration or hepatocellular disease. The spleen is unremarkable. COMMON DUCT: No intraluminal mass or stone visualized. GALLBLADDER: Contains no stones, demonstrates no wall thickening or pericholecystic fluid. PANCREAS: The pancreas is not visualized secondary to overlying bowel gas. RIGHT KIDNEY: No hydronephrosis, stone or mass. SPLEEN: No focal lesion. CONCLUSION: 1. Echogenic liver compatible with fatty infiltration or hepatocellular disease. Torres Bryan MD on August 27, 2017 at 17:01 Board Certified Radiologist. This report was verified electronically.
[2017-08-28] VITALS: BP 107/66; PULSE 73; RESP 18; TEMP 98.6; O2SAT 96
[2017-08-28 04:00] VITALS: BP 156/75; PULSE 63; RESP 18; TEMP 98; O2SAT 98
[2017-08-28 06:27] LABS: HEMATOCRIT 40.1 % (39.0-51.0); HEMOGLOBIN 14.3 GM/DL (13.0-17.0); MEAN CELL VOLUME 100.9 FL (80.0-100.0); MEAN CORPUSCULAR HGB CONC 35.7 % (32.0-36.0); MEAN PLATELET VOLUME 10.4 FL (7.0-11.0); PLATELET COUNT 68 TH/MM3 (150-450); RED BLOOD COUNT 3.98 MIL/MM3 (4.50-5.90); RED CELL DISTRIBUTION WIDTH 13.2 % (11.6-17.2); WHITE BLOOD COUNT 4.8 TH/MM3 (4.0-11.0)
[2017-08-28 06:51] LABS: BICARBONATE 25.7 MEQ/L (21.0-32.0); CALCIUM 8.3 MG/DL (8.5-10.1); CREATININE 0.78 MG/DL (0.60-1.30)
[2017-08-28] MEDS ORDERED: POTASSIUM CHLORIDE 20 MEQ CONTROLLED RELEASE TAB PO ONE (07:15)
[2017-08-28 08:14] VITALS: BP 122/70; PULSE 79; RESP 20; TEMP 98.2; O2SAT 95
--- NOTE | 2017-08-28 08:35 | HHI.FPPN ---
Subjective Remarks Patient seen and examined today. No acute events overnight. No nausea, vomiting , fever, chills, abdominal pain, chest pain, shortness of breath, seizure-like activity, lightheadedness, dizziness. No other complaints at this time. His thrombocytopenia was discussed at length, risks were reviewed and that close follow-up with his physician was required outpatient. He expressed understanding and agreed. (Chas Leiva MD R1) Objective Vitals Vital Signs Date Time Temp Pulse Resp B/P (MAP) Pulse Ox O2 Delivery O2 Flow Rate FiO2 08/28/17 08:14 98.2 79 20 122/70 (87) 95 08/28/17 04:00 98.0 63 18 156/75 (102) 98 08/28/17 00:00 98.6 73 18 107/66 (80) 96 08/27/17 20:00 97.9 78 20 121/68 (85) 95 08/27/17 17:10 98.9 78 20 151/76 (101) 99 08/27/17 11:24 98.0 73 20 110/67 (81) 97 I/O 08/27/17 08/27/17 08/27/17 08/28/17 08/28/17 08/28/17 07:00 15:00 23:00 07:00 15:00 23:00 Intake Total 480 ml 240 ml Balance 480 ml 240 ml Intake Oral 480 ml 240 ml # Voids 5 2 2 # Bowel Movements 1 0 (Chas Leiva MD R1) Result Diagram: 08/28/17 0556 08/28/17 0556 Objective Remarks GENERAL: NAD, sitting in bed eating breakfast CARDIOVASCULAR: Regular rate and rhythm. RESPIRATORY: No accessory muscle use. Clear to auscultation. Breath sounds equal bilaterally. GASTROINTESTINAL: Abdomen soft, non-tender, nondistended. MUSCULOSKELETAL: Extremities without clubbing, cyanosis, or edema. No obvious deformities. NEUROLOGICAL: Awake and alert. Normal speech. PSYCHIATRIC: Appropriate mood and affect; insight and judgment normal. (Chas Leiva MD R1) A/P Assessment and Plan 62-year-old male with history of hypertension, diabetes, alcoholism presents with seizures. Discharge Planning Pending neurology workup and heme workup, (Chas Leiva MD R1) Problem List: (1) Seizures ICD Codes: R56.9 - Unspecified convulsions Status: Acute Plan: Patient doing significantly better today. No seizure activity. Appreciate consult from neurology, which seems to believe seizure occurred from withdrawal. EEG-Normal -Spoke to the patient at length about alcohol cessation -Placed on CIWA -Patient tolerating by mouth diet well -D/c home on Librium (2) Hyponatremia ICD Codes: E87.1 - Hypo-osmolality and hyponatremia Status: Acute Plan: Na 136 today, within normal limits CT chest done to rule out lung mass-negative -Monitor neuro status -Continue to monitor sodium (3) Thrombocytopenia ICD Codes: D69.6 - Thrombocytopenia, unspecified Status: Chronic Plan: Has had some decreased platelets in the past Minimum platelets 38 and 08/26/17, improved to 68 today 08/28/17 Consult heme/onc-appreciate recs * Ultrasound of liver yesterday for cirrhosis/splenomegaly - echogenic liver compatible with fatty infiltration * Monitor CBC hold lovenox (4) Chronic alcohol abuse ICD Codes: F10.10 - Alcohol abuse, uncomplicated Status: Acute Plan: Spoke to patient about cessation of alcohol Consult case management Hopeful that he'll quit (5) HTN (hypertension) ICD Codes: I10 - Essential (primary) hypertension Plan: Continue to monitor blood pressure Seems to have acceptable vitals at this time Renew home medication Place when necessary medications (6) Diabetes mellitus ICD Codes: E11.9 - Diabetes mellitus Status: Chronic Plan: Diabetic diet Hold patient metformin Place on insulin sliding scale (7) Conjunctivitis ICD Codes: H10.9 - Unspecified conjunctivitis Plan: Symptoms are improving today Continue polymixin eye drops (8) FEN Status: Acute Plan: Fluids: PO Electrolytes: keep monitoring Nutrition: Diabetic Diet DVT ppx:scd See the residents documentation for details. I saw and evaluated the patient regarding the edmondson portions of this evaluation and agree with the residents findings and plans as written. Parts of this note were created using [employer] voice recognition software program. While efforts were made to correct any mistakes made by this software, some mistakes, errors, and omissions may remain in the final note that were not caught when the note was originally created. Patient mentioned numerous times that he wanted to leave AMA. We discussed with him at length about consequences of leaving, and possible worsening of his symptoms. All of his questions were answered during discussion. (Chas Leiva MD R1) Problem List: (1) Seizures ICD Codes: R56.9 - Unspecified convulsions Status: Acute Plan: Patient doing significantly better today. No seizure activity. Appreciate consult from neurology, which seems to believe seizure occurred from withdrawal. EEG-Normal -Spoke to the patient at length about alcohol cessation -Placed on CIWA -Patient tolerating by mouth diet well -D/c home on Librium (2) Hyponatremia ICD Codes: E87.1 - Hypo-osmolality and hyponatremia Status: Acute Plan: Na 136 today, within normal limits CT chest done to rule out lung mass-negative -Monitor neuro status -Continue to monitor sodium (3) Thrombocytopenia ICD Codes: D69.6 - Thrombocytopenia, unspecified Status: Chronic Plan: Has had some decreased platelets in the past Minimum platelets 38 and 08/26/17, improved to 68 today 08/28/17 Consult heme/onc-appreciate recs * Ultrasound of liver yesterday for cirrhosis/splenomegaly - echogenic liver compatible with fatty infiltration * Monitor CBC hold lovenox Patient will follow-up with hematology and outpatient Spoke to the patient at length about cessation of alcohol, patient states he will not continue use of alcohol. Follow-up with his primary care physician within the next week. (4) Chronic alcohol abuse ICD Codes: F10.10 - Alcohol abuse, uncomplicated Status: Acute Plan: Spoke to patient about cessation of alcohol Consult case management Hopeful that he'll quit (5) HTN (hypertension) ICD Codes: I10 - Essential (primary) hypertension Plan: Continue to monitor blood pressure Seems to have acceptable vitals at this time Renew home medication Place when necessary medications (6) Diabetes mellitus ICD Codes: E11.9 - Diabetes mellitus Status: Chronic Plan: Diabetic diet Hold patient metformin Place on insulin sliding scale (7) Conjunctivitis ICD Codes: H10.9 - Unspecified conjunctivitis Plan: Symptoms are improving today Continue polymixin eye drops (8) FEN Status: Acute Plan: Fluids: PO Electrolytes: keep monitoring Nutrition: Diabetic Diet DVT ppx:scd See the residents documentation for details. I saw and evaluated the patient regarding the edmondson portions of this evaluation and agree with the residents findings and plans as written. Parts of this note were created using [employer] voice recognition software program. While efforts were made to correct any mistakes made by this software, some mistakes, errors, and omissions may remain in the final note that were not caught when the note was originally created. Patient mentioned numerous times that he wanted to leave AMA. We discussed with him at length about consequences of leaving, and possible worsening of his symptoms. All of his questions were answered during discussion. (Addi Eaton MD) Problem Qualifiers (1) HTN (hypertension): Qualified Codes: I10 - Essential (primary) hypertension (2) Diabetes mellitus: Qualified Codes: E11.9 - Type 2 diabetes mellitus without complications (3) Conjunctivitis: Qualified Codes: H10.33 - Unspecified acute conjunctivitis, bilateral Chas Leiva MD R1 Aug 28, 2017 08:34 Addi Eaton MD Aug 28, 2017 11:47
--- NOTE | 2017-08-28 08:37 | HHI.DS ---
Discharge Summary Admission Date Aug 24, 2017 at 17:04 Admitting Diagnosis new onset seizure, hyponatremia, hypokalemia, elevated liver enzymes (1) Seizures Diagnosis: Principal Plan: Patient doing significantly better today. No seizure activity since yesterday. Appreciate consult from neurology, which seems to believe seizure occurred from withdrawal. EEG-Normal -Spoke to the patient at length about alcohol cessation -Placed on CIWA -Patient tolerating by mouth diet well -D/c home on Librium ICD Codes: R56.9 - Unspecified convulsions Status: Acute (2) Hyponatremia Diagnosis: Principal Plan: Na 140 today, remaining stable CT chest done to rule out lung mass-negative -Monitor neuro status -Continue to monitor sodium ICD Codes: E87.1 - Hypo-osmolality and hyponatremia Status: Acute (3) Thrombocytopenia Diagnosis: Secondary Plan: Has had some decreased platelets in the past Consult heme/onc-appreciate recs * Ultrasound of liver today for cirrhosis/splenomegaly * Monitor CBC hold lovenox ICD Codes: D69.6 - Thrombocytopenia, unspecified Status: Chronic (4) Chronic alcohol abuse Diagnosis: Secondary Plan: Spoke to patient about cessation of alcohol Consult case management Hopeful that he'll quit ICD Codes: F10.10 - Alcohol abuse, uncomplicated Status: Acute (5) HTN (hypertension) Diagnosis: Secondary Plan: Continue to monitor blood pressure Seems to have acceptable vitals at this time Renew home medication Place when necessary medications ICD Codes: I10 - Essential (primary) hypertension (6) Diabetes mellitus Diagnosis: Secondary Plan: Diabetic diet Hold patient metformin Place on insulin sliding scale ICD Codes: E11.9 - Diabetes mellitus Status: Chronic (7) Conjunctivitis Diagnosis: Secondary Plan: Symptoms are improving today Continue polymixin eye drops ICD Codes: H10.9 - Unspecified conjunctivitis (8) FEN Plan: Fluids: PO Electrolytes: keep monitoring Nutrition: Diabetic Diet DVT ppx:scd See the residents documentation for details. I saw and evaluated the patient regarding the edmondson portions of this evaluation and agree with the residents findings and plans as written. Parts of this note were created using [employer] voice recognition software program. While efforts were made to correct any mistakes made by this software, some mistakes, errors, and omissions may remain in the final note that were not caught when the note was originally created. Patient mentioned numerous times that he wanted to leave AMA. We discussed with him at length about consequences of leaving, and possible worsening of his symptoms. All of his questions were answered during discussion. Status: Acute Brief History 62-year-old male with history of hypertension, diabetes, alcoholism presents with seizure. Patient is doing much better today. No seizure activity since yesterday. Denied any prior seizure. Initial seizures witnessed by his daughter. Does not have any complaints today. Seems to be very peaceful watching TV. Denied any symptoms of chest pain, shortness of breath, or abdominal discomfort. Does have very long history of alcohol abuse. Has been recently undergoing some significant stressors in his life, which seemed to make in his symptoms worse. Has been having a good appetite, would like to eat more food. His PCP is Dr. Horvath. CBC/BMP: 08/28/17 0556 08/28/17 0556 Significant Findings Laboratory Tests Test 08/26/17 06:52 08/26/17 16:22 08/27/17 06:20 08/27/17 10:00 Red Blood Count 4.15 MIL/MM3 (4.50-5.90) 4.08 MIL/MM3 (4.50-5.90) Mean Corpuscular Volume 100.5 FL (80.0-100.0) 101.8 FL (80.0-100.0) Mean Corpuscular Hemoglobin 36.0 PG (27.0-34.0) 36.5 PG (27.0-34.0) Platelet Count 38 TH/MM3 (150-450) 45 TH/MM3 (150-450) Neutrophils (%) (Auto) 78.9 % (16.0-70.0) 72.1 % (16.0-70.0) Random Glucose 139 MG/DL (74-106) 213 MG/DL (74-106) Total Protein 5.8 GM/DL (6.4-8.2) 5.8 GM/DL (6.4-8.2) Albumin 3.2 GM/DL (3.4-5.0) 3.1 GM/DL (3.4-5.0) Calcium Level 8.3 MG/DL (8.5-10.1) Aspartate Amino Transf (AST/SGOT) 152 U/L (15-37) 95 U/L (15-37) Alanine Aminotransferase (ALT/SGPT) 109 U/L (12-78) 94 U/L (12-78) Potassium Level 3.3 MEQ/L (3.5-5.1) Haptoglobin LESS THAN 10 MG/DL (30-200) Iron Level 30 MCG/DL (65-175) Total Iron Binding Capacity 241 MCG/DL (250-450) Percent Iron Saturation 12.5 % (20-50) Ferritin 480 NG/ML (26-388) Lactate Dehydrogenase 390 U/L (87-241) 309 U/L (87-241) Folate GREATER THAN 20.0 NG/ML Monocytes (%) (Auto) 9.4 % (0.0-8.0) Lymphocytes # (Auto) 0.9 TH/MM3 (1.0-4.8) Platelet Estimate LOW (NORMAL) Test 08/28/17 05:56 Red Blood Count 3.98 MIL/MM3 (4.50-5.90) Mean Corpuscular Volume 100.9 FL (80.0-100.0) Mean Corpuscular Hemoglobin 36.0 PG (27.0-34.0) Platelet Count 68 TH/MM3 (150-450) Random Glucose 299 MG/DL (74-106) Calcium Level 8.3 MG/DL (8.5-10.1) Potassium Level 3.4 MEQ/L (3.5-5.1) PE at Discharge GENERAL: NAD, sitting in bed eating breakfast CARDIOVASCULAR: Regular rate and rhythm. RESPIRATORY: No accessory muscle use. Clear to auscultation. Breath sounds equal bilaterally. GASTROINTESTINAL: Abdomen soft, non-tender, nondistended. MUSCULOSKELETAL: Extremities without clubbing, cyanosis, or edema. No obvious deformities. NEUROLOGICAL: Awake and alert. Normal speech. PSYCHIATRIC: Appropriate mood and affect; insight and judgment normal. Hospital Course Patient presented 08/24/17 for a seizure likely secondary to alcohol withdrawal.The patient also was noted to have a hyponatremia of 127 on admission. This was corrected prior to discharge, was discharged while within normal limits. Neurology was consulted, recommended against antiepileptics at that time. No further seizures were noted during admission. A thrombocytopenia was noted while in hospital. Minimum of 38 on 08/26/17. Had increased to 58 prior to discharge. Hematology was consulted, vitamin B12, folate were within normal limits. Thrombocytopenia likely secondary to alcohol consumption. Risks of thrombocytopenia discussed with patient, he expressed understanding and agreed to follow up with hematology outpatient. Pt Condition on Discharge: Stable Discharge Disposition: Discharge Home Discharge Instructions DIET: Follow Instructions for: Diabetic Diet Activities you can perform: Regular-No Restrictions Follow up Referrals: Hematology - 1 Week PCP Follow-up - 2-3 Days New Medications: Chlordiazepoxide HCl (Chlordiazepoxide HCl) 25 Mg Capsule 50 MG PO DAILY for 10 Days, #20 Continued Medications: Insulin Human Isophane-Regular 70-30 Inj (Novolin 70-30 Inj) 1,000 Unit/10 Ml Vial 5 UNITS SQ BID@ for DM for 30 Days, #1 INJECTION Lisinopril (Lisinopril) 10 Mg Tab 10 MG PO DAILY, #30 TAB 0 Refills Metformin (Metformin) 1,000 Mg Tab 1000 MG PO BIDPC for Blood Sugar Management, #60 TAB 0 Refills [Unknown ] () 10 DAILY Chas Leiva MD R1 Aug 28, 2017 08:37
--- NOTE | 2017-08-28 08:37 | HHI.DCPOC ---
Discharge Care Plan Diagnosis: (1) ETOH abuse (2) Seizures (3) Thrombocytopenia Goals to Promote Your Health * To prevent worsening of your condition and complications * To maintain your health at the optimal level Directions to Meet Your Goals Take your medications as prescribed Follow your dietary instruction Follow activity as directed Follow-up with primary care physician and hematology within the next week. Cease use of alcohol. Keep your appointments as scheduled Take your immunizations and boosters as scheduled If your symptoms worsen call your PCP, if no PCP go to Urgent Care Center or Emergency Room Smoking is Dangerous to Your Health. Avoid second hand smoke Call the 24-hour hour crisis hotline for domestic abuse at Chas Leiva MD R1 Aug 28, 2017 08:37 Addi Eaton MD Aug 28, 2017 11:44
[2017-08-28] MEDS: SODIUM CHLORIDE 0.9% FLUSH 10 ML FLUSH IV FLUSH SCH (09:00)
[2017-08-28] MEDS ORDERED: CHLO25CA9 PO (09:06)
[2017-08-28] MEDS: INSULIN ASPART SUPPLEMENTAL SCALE SQ SCH (09:39)
[2017-08-28] MEDS: THIAMINE HCL 100 MG TAB PO SCH (09:40)
[2017-08-28] MEDS: FOLIC ACID 1 MG TAB PO SCH (09:41)
[2017-08-28] MEDS: MULTIVITAMINS/MINERALS THERAPEUTIC TAB PO SCH (09:41)
[2017-08-28] MEDS: LISINOPRIL 10 MG TAB PO SCH (09:41)
[2017-08-28] MEDS: POLYMYXIN/TRIMETHOPRIM OPHT SOLN 10 ML BTL EACH EYE SCH (09:42)
--- NOTE | 2017-08-29 00:56 | PD.ONC.PN ---
Subjective Subjective Remarks Delayed note entry. Patient seen at 8AM on 08/28/16. He reports that he is doing well and is looking forward to going home. Objective Data Date Time Temp Pulse Resp B/P (MAP) Pulse Ox O2 Delivery O2 Flow Rate FiO2 08/28/17 08:14 98.2 79 20 122/70 (87) 95 08/28/17 04:00 98.0 63 18 156/75 (102) 98 Result Diagram: 08/28/17 0556 08/28/17 0556 Laboratory Results Laboratory Tests Test 08/28/17 05:56 White Blood Count 4.8 TH/MM3 Red Blood Count 3.98 MIL/MM3 Hemoglobin 14.3 GM/DL Hematocrit 40.1 % Mean Corpuscular Volume 100.9 FL Mean Corpuscular Hemoglobin 36.0 PG Mean Corpuscular Hemoglobin Concent 35.7 % Red Cell Distribution Width 13.2 % Platelet Count 68 TH/MM3 Mean Platelet Volume 10.4 FL Blood Urea Nitrogen 12 MG/DL Creatinine 0.78 MG/DL Random Glucose 299 MG/DL Calcium Level 8.3 MG/DL Sodium Level 136 MEQ/L Potassium Level 3.4 MEQ/L Chloride Level 102 MEQ/L Carbon Dioxide Level 25.7 MEQ/L Anion Gap 8 MEQ/L Estimat Glomerular Filtration Rate 101 ML/MIN Objective Remarks GENERAL: Well-nourished, well-developed patient. SKIN: Warm and dry. HEAD: Normocephalic. EYES: No scleral icterus. No injection or drainage. NECK: Supple, trachea midline. No JVD or lymphadenopathy. RESPIRATORY: No accessory muscle use. GASTROINTESTINAL: Abdomen soft, non-tender, nondistended. NEUROLOGICAL: No obvious focal deficit. Awake, alert, and oriented x3. PSYCHIATRIC: Appropriate mood and affect; insight and judgment normal. Assessment/Plan Problem List: (1) Thrombocytopenia ICD Codes: D69.6 - Thrombocytopenia, unspecified Status: Chronic Plan: --Thrombocytopenia in a patient with macrocytosis and alcohol abuse. --vitamin B12, folate WN: --iron studies show low serum iron, low TIBC, low % saturation and elevated ferritin-->more consistent with anemia of chronic disease --haptoglobin/LDH-->LDH elevated, haptoglobin low, bilirubin WNL, haptoglobin may be low d/t poor synthetic liver function associated with alcohol abuse. -- Peripheral blood smear per pathology review is pending --hepatitis panel pending --HIV pending. --Do not suspect heparin induced thrombocytopenia at this time. Assessment 62-year-old male with prostate cancer, admitted with seizure. Hematology consulted for thrombocytopenia history of hypertension, diabetes, alcohol abuse --s/p prostatectomy in 2007 Plan Platlet count is increased today. He will be discharged with follow up. He will discontinue ETOH in the outpatient setting. Christie Molina MD Aug 29, 2017 00:56
== END 2017-08-28 10:44 | disposition home or self-care (01) | DRG 897 ==
LOC: NEPC 13:49 → NEDA 17:04 → N05B 19:00
PROVIDERS: ADMIT Family Medicine; ATTEND Family Medicine
DX: F10.231 Alcohol dependence with withdrawal delirium (principal); D69.59 Other secondary thrombocytopenia; K76.0 Fatty (change of) liver, not elsewhere classified; E87.1 Hypo-osmolality and hyponatremia; J98.11 Atelectasis; R56.9 Unspecified convulsions; D69.6 Thrombocytopenia, unspecified; I10 Essential (primary) hypertension; E87.6 Hypokalemia; R74.8 Abnormal levels of other serum enzymes; E11.9 Type 2 diabetes mellitus without complications; E78.5 Hyperlipidemia, unspecified; H10.33 Unspecified acute conjunctivitis, bilateral; F17.210 Nicotine dependence, cigarettes, uncomplicated; F41.9 Anxiety disorder, unspecified; Y90.0 Blood alcohol level of less than 20 mg/100 ml; Z79.4 Long term (current) use of insulin; Z85.46 Personal history of malignant neoplasm of prostate
CPT/HCPCS: 51702; 70450; 71250; 76705; 80048; 80053; 80074; 80307; 81001; 82550; 82607; 82728; 82746; 82948; 83010; 83540; 83550; 83615; 84484; 85007; 85025; 85027; 85060; 85610; 85730; 86703; 86803; 93005; 95819; 96360; J1650; J1815; J7030